=== PATIENT | male | born 1945 | race Caucasian/White ===

== ENCOUNTER 2020-08-02 16:24 | Inpatient (IN) | payer MEDICARE ==
[~2020-08-02 16:24] MED LIST: Iopamidol-370 76% 500 ML 1 ML ONE
--- NOTE | 2020-08-02 18:41 | RAD ---
Chest AP view INDICATION: Shortness of breath COMPARISON: None FINDINGS: Lungs: There is hyperinflation with interstitial prominence suspicious for underlying COPD. There ar e calcified pulmonary nodules within the right and left lung suspicious for granuloma. There is mild subsegmental volume loss involving the right lower lobe. Cardiac silhouette: There is moderate cardiomegaly. Pulmonary vasculature: Normal Pleural spaces: There are small bilateral pleural effusions. Upper abdomen: No abnormality seen. Osseous structures: No acute osseous abnormality. Additional findings: None. IMPRESSION: Moderate cardiomegaly. Small bilateral pleural effusions. Mild COPD change with findings of prior granulomatous disease.
[2020-08-02 18:54] LABS: #Basophils 0.1 thou/uL (0.0-0.2); #Eosinphils 0.1 thou/uL (0.0-0.7); #Lymphocytes 1.7 thou/uL (1.20-3.40); #Monocytes 0.5 thou/uL (0.11-0.59); #Neutrophils 4.1 thou/uL (1.40-6.50); %Basophils 0.9 % (0.0-1.0); %Eosinophils 1.2 % (0.0-10.0); %Lymphocytes 26.6 % (21.0-51.0); %Monocytes 7.5 % (0.0-10.0); %Neutrophils 63.9 % (42.0-75.0); Hemoglobin 14.4 g/dL (14.0-18.0); Mean Corpuscular HGB CONC 31.1 g/dL (32.0-36.0); Mean Corpuscular Hemoglobin 31.4 pg (27.0-31.0); Mean Platelet Volume 8.4 fL (7.4-10.4); Platelet Count 216 thou/uL (130-400); RBC Distribution Width 14.2 % (11.5-14.5); Red Blood Cell (RBC) Count 4.58 mill/uL (4.70-6.10); White Blood Cell (WBC) Count 6.4 thou/uL (4.8-10.8)
[2020-08-02 19:18] LABS: ALT (SGPT) 8 U/L (8-55); AST (SGOT) 22 U/L (5-34); Albumin 3.7 g/dL (3.4-4.8); Alkaline Phosphatase 138 U/L (40-110); Anion Gap 15 mmol/L (10-20); BUN (Urea Nitrogen) 12 mg/dL (8.4-25.7); Bilirubin, Total 0.7 mg/dL (0.2-1.2); Calc. Creatinine Clearance 0 mL/min (70-130); Calcium 8.9 mg/dL (7.8-10.44); Carbon Dioxide 27 mmol/L (23-31); Chloride 105 mmol/L (98-107); Estimated GFR-MDRD Greater than 90; Globulin 3.1 g/dL (2.4-3.5); Glucose 103 mg/dL (83-110); Lipase 13 U/L (8-78); Protein, Total 6.8 g/dL (5.8-8.1); Sodium 143 mmol/L (136-145)
[2020-08-02] MEDS ORDERED: Magnesium 2 GM/50 ML BAG (IN WATER) ONE (19:40)
[2020-08-02] MEDS ORDERED: Aspirin 325 MG TAB ONE (19:40)
[2020-08-02 19:46] LABS: CKMB 7.9 ng/mL (0-6.6)
[2020-08-02 19:56] LABS: Acetaminophen Less than 6.0 mcg/mL (10.0-30.0); Alcohol Less than 10 mg/dL (Less than 10); Salicylate Less than 8.0 mg/dL (15.0-30.0)
--- NOTE | 2020-08-02 20:22 | CT ---
CT OF THE ABDOMEN AND PELVIS WITH IV CONTRAST INDICATION: History of abdominal pain and swelling COMPARISON: CT the abdomen and pelvis [facility] June 29 FINDINGS: ABDOMEN: Lung bases: The moderate right and small left pleural effusion persists. There is bibasilar atelectas is. There is stable cardiomegaly. Liver: No focal lesion. Gallbladder: Normal appearing. Pancreas: Normal. Adrenal glands: Normal. Spleen: Normal. Kidneys and ureters: There is stable severe left hydronephrosis with mild left hydroureter. Right kid sarah appears normal. Small cysts involving the lateral margin of the superior pole right kidney is present measuring 1.3 cm. There is an additional suspected exophytic cyst off the posterior margin th e right kidney not as well seen due to anasarca measuring approximately 3.6 cm. Vasculature: There are mild vascular calcifications seen involving the visualized vasculature. 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 The left common iliac artery measures approximately 2.5 cm. 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 Lymph nodes:No lymphadenopathy. Free fluid in abdomen:No free fluid is evident. PELVIS: Small and large bowel: There is scattered colonic diverticulosis. There is an umbilicus hernia contai benita an unobstructed loop of gas-filled small bowel. Appendix:Normal Bladder: There is prominent distention of the bladder and prostate enlargement Rectal and perirectal soft tissues:Normal. Reproductive structures: The prostate remains enlarged measuring 5.3 cm. Free fluid in pelvis: There is moderate to prominent ascites that is stable. There is moderate anasar ca Lymphadenopathy pelvis: No lymphadenopathy is evident. Osseous structures: No acute osseous abnormality. No destructive osteolytic or osteoblastic lesion i s identified. There is scattered degenerative and osteoarthritic changes. Soft tissues:There is moderate to prominent anasarca IMPRESSION: 1. Stable prominent distention of the bladder with severe left-sided hydronephrosis. 2. Stable right renal cysts. 3. Stable moderate right and small left pleural effusions with moderate to prominent ascites and anas arca
[2020-08-02 21:23] LABS: Bilirubin Negative (Negative); Blood, Urine Trace (Negative); Clarity Clear (Clear); Glucose, Urine (Dipstick) Normal (Negative); Ketone, Urine Negative (Negative); Leukocyte 75 Leu/uL (Negative); Mucous/LPF 1+ LPF (<2+); Nitrite Negative (Negative); Protein, Urine (Dipstick) 50 mg/dL (Neg-Trace); Specific Gravity, Urine 1.016 (1.002-1.036); Squamous Epithelial None Seen HPF (0-3); Urobilinogen Normal mg/dL (Less than 2)
[2020-08-02 21:30] LABS: Amphetamine Not Detected (NotDetected); Benzodiazepine Screen Not Detected (NotDetected); Cocaine Metabolite Screen Not Detected (NotDetected); Medtox Reader # READER 4; Methamphetamine Not Detected (NotDetected); Opiate Screen Not Detected (NotDetected); Phencyclidine (PCP) Not Detected (NotDetected); THC/Cannabinoid Screen Not Detected (NotDetected); Tricyclic Screen Not Detected (NotDetected)
[2020-08-02 21:31] LABS: Bacteria/HPF 1+ HPF (None Seen); Barbiturates Screen Not Detected (NotDetected); Medtox Control Line Valid? VALID (VALID); Methadone Not Detected (NotDetected); Oxycodone Screen Not Detected (NotDetected)
[2020-08-02] MEDS ORDERED: Furosemide 40 MG/4 ML VIAL ONE (23:04)
[2020-08-02] MEDS ORDERED: cefTRIAXone\\ROCEPHIN 1 GM VIAL ONE (23:04)
[2020-08-02] MEDS ORDERED: Nitroglycerin 2% Ointment 1 INCH/1 GM Packet ONE (23:04)
[2020-08-02 23:10] LABS: Troponin I 0.081 ng/mL (< 0.028)
[2020-08-02] MEDS ORDERED: Enoxaparin Sodium 80 MG/0.8 ML SYRINGE ONE (23:52)
[2020-08-03] MEDS ORDERED: Ondansetron PF 4 MG/2 ML Vial IVP PRN (00:42)
[2020-08-03] MEDS ORDERED: Ondansetron ODT 4 MG TAB PO PRN (00:42)
[2020-08-03] MEDS ORDERED: HYDROcodone/Acetaminophen 5/325 mg Tablet PO PRN (00:42)
[2020-08-03] MEDS ORDERED: Calcium Carbonate 500 MG ChewTAB PO PRN (00:42)
[2020-08-03] MEDS ORDERED: Acetaminophen 650 MG Suppository PR PRN (00:42)
--- NOTE | 2020-08-03 00:48 | PDOC.HHP ---
Hospitalist HPI - History of Present Illness unable to urinate, swelling of the legs and abdomen History of Present Illness: Case of an 75y/o male with pmhx of bph who comes to hospital due to generalize edema and unable to void. patient states that for the last month he has experience progressive difficulty voiding which has been acompanied by increased swelling of his legs and abdomen. he states he is seeing a urologist that recommended a loera and some diuresis but patient was unable to get the loera placed. at ED patient was evaluated and found to be in new onset of atrial flutter and was treated with diltiazem and a loera was placed. hospitalist was called for further evaluation and management. patient denies any fever chills nause vomiting cough chest pain sob or diaphoresis Hospitalist ROS - Review of Systems All other systems reviewed; all pertinent +/- noted in HPI/Subj Hospitalist History - Past Surgical History Past Surgical History: reports: Tonsillectomy - Family History Family History: reports: no pertinent history - Social History Smoking Status: Former smoker Alcohol: reports: None Drugs: reports: none - Exam General Appearance: NAD, awake alert Eye: PERRL, anicteric sclera ENT: normocephalic atraumatic, no oropharyngeal lesions Neck: supple, symmetric, no JVD, no thyromegaly Heart: no murmur, no gallops, no rubs, irregular Respiratory: CTAB, no wheezes, no rales, no ronchi Gastrointestinal: soft, non-tender, normal bowel sounds, no guarding, no rigidity, distended Gastrointestinal - other findings: massive hernia Extremities: no cyanosis, no clubbing, 2+ LE edema Skin: normal turgor, no lesions, no rashes Neurological: cranial nerve grossly intact, normal sensation to touch, no weakness Musculoskeletal: normal tone, normal strength, no muscle wasting Psychiatric: normal affect, normal behavior, A&O x 3 Hospitalist Results - Labs Result Diagrams: 08/02/20 18:34 08/02/20 18:34 Lab results: WBC 6.4 thou/uL (4.8-10.8) 08/02/20 18:34 Hgb 14.4 g/dL (14.0-18.0) 08/02/20 18:34 Hct 46.3 % (42.0-52.0) 08/02/20 18:34 MCV 101.0 fL (78.0-98.0) H 08/02/20 18:34 Plt Count 216 thou/uL (130-400) 08/02/20 18:34 Neutrophils % 63.9 % (42.0-75.0) 08/02/20 18:34 Sodium 143 mmol/L (136-145) 08/02/20 18:34 Potassium 4.0 mmol/L (3.5-5.1) 08/02/20 18:34 Chloride 105 mmol/L (98-107) 08/02/20 18:34 Carbon Dioxide 27 mmol/L (23-31) 08/02/20 18:34 BUN 12 mg/dL (8.4-25.7) 08/02/20 18:34 Creatinine 0.79 mg/dL (0.7-1.3) 08/02/20 18:34 Glucose 103 mg/dL (83-110) 08/02/20 18:34 Calcium 8.9 mg/dL (7.8-10.44) 08/02/20 18:34 Total Bilirubin 0.7 mg/dL (0.2-1.2) 08/02/20 18:34 AST 22 U/L (5-34) 08/02/20 18:34 ALT 8 U/L (8-55) 08/02/20 18:34 Alkaline Phosphatase 138 U/L (40-110) H 08/02/20 18:34 CK-MB (CK-2) 7.9 ng/mL (0-6.6) H* 08/02/20 18:34 Troponin I 0.081 ng/mL (< 0.028) H 08/02/20 22:32 B-Natriuretic Peptide 1978.7 pg/mL (0-100) H 08/02/20 18:34 Serum Total Protein 6.8 g/dL (5.8-8.1) 08/02/20 18:34 Albumin 3.7 g/dL (3.4-4.8) 08/02/20 18:34 Lipase 13 U/L (8-78) 08/02/20 18:34 Urine Ketones Negative mg/dL (Negative) 08/02/20 20:57 Urine Blood Trace (Negative) A 08/02/20 20:57 Urine Nitrite Negative (Negative) 08/02/20 20:57 Ur Leukocyte Esterase 75 Jammie/uL (Negative) A 08/02/20 20:57 Urine RBC 4-6 HPF (0-3) A 08/02/20 20:57 Urine WBC 11-20 HPF (0-3) A 08/02/20 20:57 Ur Squamous Epith Cells None Seen HPF (0-3) 08/02/20 20:57 Urine Bacteria 1+ HPF (None Seen) A 08/02/20 20:57 Hospitalist H&P A/P - Problem (1) Acute heart failure Code(s): I50.9 - HEART FAILURE, UNSPECIFIED Status: Acute (2) Obstructive uropathy Code(s): N13.9 - OBSTRUCTIVE AND REFLUX UROPATHY, UNSPECIFIED Status: Acute (3) UTI (urinary tract infection) Status: Acute (4) Atrial flutter with rapid ventricular response Code(s): I48.92 - UNSPECIFIED ATRIAL FLUTTER Status: Acute - Plan Plan: 75y/o male with apparent no pmhx of who present with new onset of atrial flutter, heart faiure uti and obstructive uropathy atrial flutter - ekg consistent with atrial flutter with rvr - treated with diltiazem iv 20mg x2 - start beta maikel for rate control - AC with lovenox - 2d echo -telemtry monitoring heart failure - cxr with cardiomegaly - bnp almost 2k - will treat with lasix 40mg iv bid - will start acei + beta maikel - 2d echo - pecan picker evaluation - elevated troponin will trend obstructive uropathy - likely secondary to bph - loera cath placed - continue w flomax - abd ct with L hydronephrosis, which appears on imagin 1 month ago - urology consult uti - u/a consistent with uti - starting rocephin - f/u u/c
[2020-08-03 02:58] LABS: Troponin I 0.076 ng/mL (< 0.028)
[2020-08-03] MEDS: Acetaminophen 325 MG TAB PO PRN (04:59)
[2020-08-03] MEDS ORDERED: Acetaminophen 325 MG TAB ONE (05:04)
[2020-08-03] MEDS ORDERED: Furosemide 20 MG/2 ML VIAL SLOW IVP SCH (06:00)
[2020-08-03] MEDS ORDERED: Furosemide 40 MG/4 ML VIAL ONE ×2 (06:45→14:25)
[2020-08-03] MEDS: Furosemide 40 MG/4 ML VIAL SLOW IVP SCH ×2 (06:48→14:38)
[2020-08-03 07:21] LABS: ALT (SGPT) 7 U/L (8-55); AST (SGOT) 20 U/L (5-34); Albumin 3.2 g/dL (3.4-4.8); Alkaline Phosphatase 117 U/L (40-110); Anion Gap 13 mmol/L (10-20); BUN (Urea Nitrogen) 10 mg/dL (8.4-25.7); Bilirubin, Total 0.8 mg/dL (0.2-1.2); Calc. Creatinine Clearance 0 mL/min (70-130); Calcium 8.9 mg/dL (7.8-10.44); Carbon Dioxide 32 mmol/L (23-31); Chloride 104 mmol/L (98-107); Estimated GFR-MDRD Greater than 90; Globulin 3.1 g/dL (2.4-3.5); Glucose 99 mg/dL (83-110); Magnesium 2.2 mg/dL (1.6-2.6); Potassium 3.7 mmol/L (3.5-5.1); Protein, Total 6.3 g/dL (5.8-8.1); Sodium 145 mmol/L (136-145)
[2020-08-03 08:49] LABS: SARS-CoV-2 MS2 Positive; SARS-CoV-2 N Gene Negative; SARS-CoV-2 S Gene Negative; SARS-CoV-2 by NAA Not Detected (NotDetected); SARS-CoV-2 orf1ab Negative
[2020-08-03] MEDS ORDERED: Carvedilol 3.125 MG TAB PO SCH (09:00)
[2020-08-03] MEDS ORDERED: Enoxaparin Sodium 80 MG/0.8 ML SYRINGE ONE (10:19)
[2020-08-03] MEDS: Lisinopril 2.5 MG TAB PO SCH (10:30)
[2020-08-03] MEDS: Enoxaparin Sodium 80 MG/0.8 ML SYRINGE SC SCH ×2 (10:30→20:21)
[2020-08-03] MEDS: Tamsulosin HCl 0.4 MG CAP PO SCH (10:32)
[2020-08-03 11:02] LABS: Anion Gap 14 mmol/L (10-20); BUN (Urea Nitrogen) 10 mg/dL (8.4-25.7); Calc. Creatinine Clearance 0 mL/min (70-130); Calcium 8.8 mg/dL (7.8-10.44); Carbon Dioxide 31 mmol/L (23-31); Cardiac Risk 4.1 (Less than 4.5); Chloride 101 mmol/L (98-107); Cholesterol 124 mg/dl (< 200 Desired); Estimated GFR-MDRD Greater than 90; Glucose 101 mg/dL (83-110); HDL Cholesterol 30 mg/dL (>60 Neg Risk); LDL Cholesterol, Calculated 76 mg/dL; Potassium 3.4 mmol/L (3.5-5.1); Sodium 143 mmol/L (136-145); Triglycerides 88 mg/dL (Less than 150)
--- NOTE | 2020-08-03 12:17 | CON ---
DATE OF CONSULTATION: HISTORY OF PRESENT ILLNESS: Jonathon León is a 75-year-old white male without any previously known cardiac problems except an episode of pericarditis when he was in college where he had to be hospitalized for few days. He also states that at times he has been told that he has an irregular heartbeat. Over the last 1 to 2 weeks, he has noted increasing leg and abdominal edema and he also at times will feel his heart beating somewhat rapidly. He saw Dr. Lau, his primary doctor, who urged him to have a Cedeno placed and he went to see a urologist, however, due to pain, this could not be placed. He ultimately came to the emergency room. A Cedeno was placed. He had significant diuresis after placement of that. He denies any chest discomfort. PAST MEDICAL HISTORY: Denies any history of hypertension, diabetes, or hypercholesterolemia. It sounds as if he has benign prostatic hypertrophy. MEDICATIONS: At home, none. ALLERGIES: NONE. SOCIAL HISTORY: Smokes 5 to 6 cigarettes per day, but apparently stopped 2 to 3 months ago. He does drink alcohol. FAMILY HISTORY: Negative for coronary artery disease. PHYSICAL EXAMINATION: VITAL SIGNS: Blood pressure 132/100, pulse of 119. HEENT: PERRL. NECK: Supple. CHEST: Clear. CARDIAC: S1 and S2 normal without any S3, S4, or murmurs. The jugular veins are distended at 30 degrees in bed. ABDOMEN: Normal bowel sounds. There is a large umbilical hernia. EXTREMITIES: Reveal 1 to 2+ pretibial edema and thigh edema. GENITOURINARY: Cedeno is in place with blood-tinged urine. NEUROLOGIC: Grossly intact. LABORATORY DATA: EKG reveals probable sinus rhythm with rate of 119 per minute. There is right bundle-branch block, left anterior fascicular block, nonspecific ST and T-wave changes. Abdominal and pelvis CT revealed bladder distention with severe left-sided hydronephrosis. Bilateral small pleural effusions. Prominent ascites and anasarca. Chest x-ray revealed cardiomegaly with small bilateral effusions, somewhat increased pulmonary vasculature. Hemoglobin 14.4, hematocrit 46.3, white count 6400, platelets 216,000. He does have elevated RBC indices except the MCHC is low. Sodium 145, potassium 3.7, chloride 104, carbon dioxide 32, BUN 10, and creatinine 0.82. All of the creatinines have been normal. Troponin I is 0.081, CK-MB 7.9. Albumin is low at 3.2, total protein is normal at 6.3, AST is normal, ALT is 7, which is low. COVID is negative. Urine drug screen is unremarkable. Urinalysis reveals 10 to 20 wbc's, 4 to 6 rbc's, 1+ bacteria. BNP 1978.7 and TSH is normal. IMPRESSION: 1. Probable sinus tachycardia on his EKG. Usually with atrial flutter, there is either 2:1 or 4:1 block, which usually leads to a heart rate of about 150 or 75. Also in lead V1, I do not see any flutter waves. This can be further defined on echocardiogram. 2. Probable systolic heart failure with cardiomegaly on chest x-ray, significantly elevated jugular venous distention and BNP of 1978.7 3. Possible hypertension with blood pressure somewhat elevated at this time. 4. Benign prostatic hypertrophy with urinary obstruction and left hydronephrosis although his creatinine is normal. 5. Former smoker, stopped 2 months ago. 6. EtOH use. PLAN: The patient has been started on carvedilol and as he is diuresed, hopefully, his heart rate will fall. Echocardiogram can be performed to assess left ventricular function. We will continue to follow the patient with you. Job ID: [id number] MTDD
--- NOTE | 2020-08-03 12:30 | PDOC.HOSPP ---
- Subjective Encounter Date: 08/03/20 Encounter Time: 10:00 Subjective: Mr. León was in bed at the time of the visit and appeared to be in no acute distress. He denied any current palpitations, chest pain, and cardiac history. His Cedeno drained 500 mL of blood-tinged urine and relieved his ab dominal dissension and pain. Abdominal CT showed severe left hydronephrosis. Reported 1-2 weeks of leg edema. - Objective Vital Signs & Weight: Vital Signs (12 hours) Pulse BP 08/03/20 10:30 120 H 134/106 H Result Diagrams: 08/02/20 18:34 08/03/20 10:27 Hospitalist ROS - Review of Systems Respiratory: denies: shortness of breath, SOB with excertion Cardiovascular: denies: chest pain, palpitations - Medication Medications: Active Medications Generic Name Dose Route Start Last Admin Trade Name Freq PRN Reason Stop Dose Admin Acetaminophen 650 mg 08/03/20 00:42 08/03/20 04:59 Acetaminophen 325 Mg Tab PO 650 mg Q4H PRN Administration Headache/Fever/Mild Pain (1-3) Enoxaparin Sodium 80 mg 08/03/20 09:00 08/03/20 10:30 Enoxaparin Sodium 80 Mg/0.8 Ml Syringe SC 80 mg 0900,2100 JEFFERY Administration Furosemide 40 mg 08/03/20 06:00 08/03/20 06:48 Furosemide 40 Mg/4 Ml Vial SLOW IVP 40 mg 0600,1400 JEFFERY Administration Lisinopril 2.5 mg 08/03/20 09:00 08/03/20 10:30 Lisinopril 2.5 Mg Tab PO 2.5 mg DAILY JEFFERY Administration Tamsulosin HCl 0.4 mg 08/03/20 09:00 08/03/20 10:32 Tamsulosin Hcl 0.4 Mg Cap PO 0.4 mg DAILY JEFFERY Administration - Exam General Appearance: NAD Eye: anicteric sclera ENT: normocephalic atraumatic Neck: JVD Heart: RRR Respiratory: CTAB, no wheezes, no rales, no ronchi Gastrointestinal: soft, non-distended Extremities: 1+ LE edema (bilateral legs) Neurological: cranial nerve grossly intact Psychiatric: normal affect, A&O x 3 Hosp A/P (1) Acute heart failure Code(s): I50.9 - HEART FAILURE, UNSPECIFIED Status: Acute (2) Atrial flutter with rapid ventricular response Code(s): I48.92 - UNSPECIFIED ATRIAL FLUTTER Status: Acute (3) Obstructive uropathy Code(s): N13.9 - OBSTRUCTIVE AND REFLUX UROPATHY, UNSPECIFIED Status: Acute (4) UTI (urinary tract infection) Status: Acute - Plan 08/03/2020 Atrial flutter with RVR - Continue Carvedilol for rate control--he is on a low-dose we will also provide low-dose Cardizem and adjust as his heart rate allows to keep the heart rate below 90 -Lopressor PRN for HR >90 - ordered echocardiogram - anticoagulated with Lovenox bid - cardiology following--- after echo report reviewed we will consider putting him on Eliquis versus Xarelto, if that is okay with the pmo analyst Abnormal troponin probably due to A. 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
[2020-08-03] MEDS ORDERED: Metoprolol Tartrate 5 MG/5 ML VIAL ONE (14:25)
[2020-08-03] MEDS ORDERED: Metoprolol Tartrate 5 MG/5 ML VIAL IVP PRN (14:27)
[2020-08-03 18:13] VITALS: BMI 24.1
[2020-08-03] MEDS: Carvedilol 6.25 MG TAB PO SCH (18:22)
--- NOTE | 2020-08-03 20:05 | CON ---
DATE OF CONSULTATION: 08/03/2020 REASON FOR CONSULTATION: Urinary retention. CHIEF COMPLAINT: Difficulty urinating. HISTORY OF PRESENT ILLNESS: This is a 75-year-old male previously seen by me on July 06 at which point, he walked into our clinic wanting to be seen for a worsening issue of difficulty urinating. At that point, he was clearly in retention as it was explained to him. However, he would not allow Cedeno catheter placement and would not consider performing CIC. He was dismissed from our practice at that point. He presented to the emergency room yesterday reporting trouble urinating with worsening edema of his lower extremities. In the emergency room, he was found to be in atrial flutter. Imaging shows left-sided hydronephrosis with distended bladder. Cedeno catheter has now been placed. The patient tells me the catheter is not particularly uncomfortable. He denies suprapubic pain, flank pain, nausea, or fevers. He does not feel that his peripheral edema has improved much overnight. PAST MEDICAL HISTORY: Enlarged prostate, urinary retention. PAST SURGICAL HISTORY: Tonsillectomy. FAMILY HISTORY: Reviewed, noncontributory. SOCIAL HISTORY: Former smoker. No current substance abuse. REVIEW OF SYSTEMS: 12-point review of systems reviewed, negative except as in HPI. PHYSICAL EXAMINATION: GENERAL: No acute distress. Conversant. HEENT: Head; normocephalic and atraumatic. Extraocular movements intact. Sclerae anicteric. NECK: Supple. Trachea midline. RESPIRATORY: Unlabored breathing. Symmetric chest expansion. HEART: Normal rate. No murmurs. ABDOMEN: Soft, nontender, nondistended. : No flank tenderness. No suprapubic tenderness. Cedeno catheter in good position draining mildly hematuric urine with dry blood around the Cedeno at the meatus. StatLock has been deployed incorrectly and is causing tension on the catheter. EXTREMITIES: Without cyanosis or clubbing. He does continue to have 1 to 2+ bilateral lower extremity edema. NEUROLOGIC: Alert and oriented x3. PSYCHIATRIC: Normal mood and affect. SKIN: Warm and dry. LABORATORY DATA: Reviewed. White count 6.4, hemoglobin 14.4. Creatinine 0.82. BNP yesterday just under 2000. Troponin 0.081. Repeat early this morning, 0.076. Urinalysis, small leukocyte esterase, negative nitrite. IMAGING: Enlarged prostate, distended bladder, left hydronephrosis. 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 Cedeno catheter will need to remain for at least 3 weeks. As I explained him again, he has been dismissed from our practice and so he will need to follow up with an outside urologist. I will be happy to take care of him in the hospital. Repeat imaging tomorrow with renal ultrasound to evaluate for resolution of the hydronephrosis. This may be due to longstanding ureteropelvic junction, which clearly has not impacted his overall renal function. He should continue on Flomax and finasteride. Job ID: [id number]
[2020-08-03] MEDS: cefTRIAXone\\ROCEPHIN 1 GM in Sodium Chloride 0.9% 100 ML IVPB SCH (22:04)
[2020-08-04 05:11] LABS: Anion Gap 13 mmol/L (10-20); BUN (Urea Nitrogen) 12 mg/dL (8.4-25.7); Calc. Creatinine Clearance 80 mL/min (70-130); Calcium 8.5 mg/dL (7.8-10.44); Carbon Dioxide 28 mmol/L (23-31); Cardiac Risk 3.9 (Less than 4.5); Chloride 100 mmol/L (98-107); Cholesterol 109 mg/dl (< 200 Desired); Estimated GFR-MDRD Greater than 90; Glucose 95 mg/dL (83-110); HDL Cholesterol 28 mg/dL (>60 Neg Risk); LDL Cholesterol, Calculated 69 mg/dL; Sodium 138 mmol/L (136-145); Triglycerides 61 mg/dL (Less than 150)
[2020-08-04] MEDS: Furosemide 40 MG/4 ML VIAL SLOW IVP SCH ×2 (05:19→14:15)
--- NOTE | 2020-08-04 09:01 | PDOC.HOSPP ---
- Subjective Encounter Date: 08/04/20 Encounter Time: 09:30 Subjective: Mr. León had just finished his walk and was sitting on the side of the bed at the time of the visit. Feels like he's ready to go home and wouldn't want to stay in the hospital anymore than 2 days but will defer to doctor's opinions. Abdominal pain and distension has resolved. Cedeno not uncomfortable. Potassium level low at 3. No chest pain, palpitations, shortness of breath, or dizziness. Reduced LE edema. - Objective Vital Signs & Weight: Vital Signs (12 hours) Temp Pulse Resp BP Pulse Ox 08/04/20 07:34 97.7 F 118 H 16 118/85 94 L 08/04/20 03:09 97.4 F L 116 H 20 134/88 96 08/04/20 00:00 97.5 F L 116 H 20 128/92 H 96 Weight Weight 154 lb 4.8 oz I&O: 08/03/20 08/04/20 08/05/20 06:59 06:59 06:59 Intake Total 420 Output Total 1900 Balance -1480 Result Diagrams: 08/02/20 18:34 08/04/20 03:54 Hospitalist ROS - Review of Systems Respiratory: denies: shortness of breath Cardiovascular: reports: edema (Bilat LE but reduced since yesterday). denies: chest pain, palpitations, orthopnea, paroxysmal noc. dyspnea, light headedness Gastrointestinal: denies: nausea, vomiting, abdominal pain, diarrhea, constipation - Medication Medications: Active Medications Generic Name Dose Route Start Last Admin Trade Name Coltonq PRN Reason Stop Dose Admin Acetaminophen 650 mg 08/03/20 00:42 08/03/20 04:59 Acetaminophen 325 Mg Tab PO 650 mg Q4H PRN Administration Headache/Fever/Mild Pain (1-3) Carvedilol 6.25 mg 08/03/20 17:00 08/03/20 18:22 Carvedilol 6.25 Mg Tab PO 6.25 mg BID-WM JEFFERY Administration Diltiazem HCl 30 mg 08/03/20 15:00 08/03/20 20:21 Diltiazem Hcl 30 Mg Tablet PO 30 mg TID JEFFERY Administration Enoxaparin Sodium 80 mg 08/03/20 09:00 08/03/20 20:21 Enoxaparin Sodium 80 Mg/0.8 Ml Syringe SC 80 mg 0900,2100 JEFFERY Administration Furosemide 40 mg 08/03/20 06:00 08/04/20 05:19 Furosemide 40 Mg/4 Ml Vial SLOW IVP 40 mg 0600,1400 JEFFERY Administration Ceftriaxone Sodium 1 gm/ 100 mls @ 200 mls/hr 08/03/20 23:00 08/03/20 22:04 Sodium Chloride IVPB 100 mls Q24HR JEFFERY Administration Lisinopril 2.5 mg 08/03/20 09:00 08/03/20 10:30 Lisinopril 2.5 Mg Tab PO 2.5 mg DAILY JEFFERY Administration Tamsulosin HCl 0.4 mg 08/03/20 09:00 08/03/20 10:32 Tamsulosin Hcl 0.4 Mg Cap PO 0.4 mg DAILY JEFFERY Administration - Exam General Appearance: NAD Eye: anicteric sclera ENT: normocephalic atraumatic ENT - other findings: poor dentition Neck: supple Heart: RRR, no murmur, no gallops, diminshed peripheral pulses (dorsalis pedis bilateral) Respiratory: CTAB, no wheezes, no rales, no ronchi Gastrointestinal: soft, non-tender, non-distended, normal bowel sounds Gastrointestinal - other findings: large umbilical hernia Extremities: 1+ LE edema (reduced since yesterday dermatologic changes associated with chronic venostasis) Psychiatric: normal affect, A&O x 3 Hosp A/P (1) Acute heart failure Code(s): I50.9 - HEART FAILURE, UNSPECIFIED Status: Acute (2) Atrial flutter with rapid ventricular response Code(s): I48.92 - UNSPECIFIED ATRIAL FLUTTER Status: Acute (3) Obstructive uropathy Code(s): N13.9 - OBSTRUCTIVE AND REFLUX UROPATHY, UNSPECIFIED Status: Acute (4) UTI (urinary tract infection) Status: Acute - Plan 08/03/2020 Atrial flutter with RVR - Continue Carvedilol for rate control--he is on a low-dose we will also provide low-dose Cardizem and adjust as his heart rate allows to keep the heart rate below 90 -Lopressor PRN for HR >90 - ordered echocardiogram - anticoagulated with Lovenox bid - cardiology following--- after echo report reviewed we will consider putting him on Eliquis versus Xarelto, if that is okay with the general clerk Abnormal troponin probably due to A. 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 -seems he has no prior history of ischemia Lower extremity edema -However his BNP elevated at 1977 - Diuresis with Fursomide; daily weight - Started load lisinopril Obstructive uropathy due to BPH - Continue Flomax - Keep Cedeno - Urology consult placed UTI - Being treated with Rocephin -Follow with the urine DVT prophylaxis - Enoxaparin twice daily - SCDs COVID negative Care discussed with the student and agree with the today's plan 08/04/2020 Atrial flutter with RVR - Echocardiogram today - Rate control with Carvedilol and Diltiazem -- stayed in 110s-120s--------------> will increase the Coreg dose as his heart rate still not adequately controlled and since his blood pressure is on the low side I will discontinue the diltiazem which is started at low-dose - Lopressor PRN for HR >90 - cardiology following Lower extermity edema - diuresis with Fursomide - reduced edema since yesterday - weight reduced ~3 kg since yesterday Obstructive uropathy due to BPH - Keep Cedeno for at least 3 weeks outpatient follow-up with new urology group as it appears that he was not well calmed in the previous urology group with Dr. Henley - Renal ultrasound- left hydronephrosis - blood tinged urine - Continue Flomax - added finasteride - urology following as inpt. Hypokalemmia -Being on diuretics - potassium supplementation Care discussed with the student and agree with today's plan.
[2020-08-04] MEDS: Lisinopril 2.5 MG TAB PO SCH (09:11)
[2020-08-04] MEDS: Tamsulosin HCl 0.4 MG CAP PO SCH (09:11)
[2020-08-04] MEDS: Carvedilol 6.25 MG TAB PO SCH ×2 (09:11→16:47)
[2020-08-04] MEDS: Enoxaparin Sodium 80 MG/0.8 ML SYRINGE SC SCH ×2 (09:11→21:31)
[2020-08-04] MEDS ORDERED: Carvedilol 6.25 MG TAB PO SCH (09:45)
[2020-08-04] MEDS ORDERED: Potassium Chloride 20 MEQ TAB PO SCH (10:00)
--- NOTE | 2020-08-04 10:15 | ULT ---
BILATERAL RENAL ULTRASOUND: Date: 08/04/2020 HISTORY: Hydronephrosis. FINDINGS: Comparison made with exam of 06/09/2020. The right kidney measures 12.7 cm in length. The left kidney measures 10.8 cm in length. Cyst in the right kidney measures 1.6 x 1.3 x 1.3 cm in the superolateral aspect and 3.4 x 2.7 x 2.0 cm in the mi d lateral aspect of the right kidney. No right-sided hydronephrosis is seen. There is persistent left hydronephrosis which appears slightly less compared to the previous study of 06/09/2020. There is as cites and right pleural effusion. Cedeno catheter is present in the urinary bladder. IMPRESSION: 1. Right renal cyst. 2. Severe left hydronephrosis, mildly better since 06/09/2020. POS: OFF
[2020-08-04] MEDS: cefTRIAXone\\ROCEPHIN 1 GM in Sodium Chloride 0.9% 100 ML IVPB SCH (22:47)
[2020-08-05 04:41] LABS: Anion Gap 13 mmol/L (10-20); BUN (Urea Nitrogen) 13 mg/dL (8.4-25.7); Calc. Creatinine Clearance 84 mL/min (70-130); Calcium 8.5 mg/dL (7.8-10.44); Carbon Dioxide 31 mmol/L (23-31); Chloride 99 mmol/L (98-107); Estimated GFR-MDRD Greater than 90; Glucose 91 mg/dL (83-110); Potassium 3.5 mmol/L (3.5-5.1); Sodium 139 mmol/L (136-145)
[2020-08-05] MEDS: Furosemide 40 MG/4 ML VIAL SLOW IVP SCH ×2 (06:43→14:01)
--- NOTE | 2020-08-05 07:10 | EKG ---
Test Reason : Blood Pressure : / mmHG Vent. Rate : 119 BPM Atrial Rate : 119 BPM P-R Int : 128 ms QRS Dur : 150 ms QT Int : 388 ms P-R-T Axes : 000 -67 137 degrees QTc Int : 545 ms Sinus tachycardia probable well defined P waves not seen Right bundle branch block Left anterior fascicular block Bifascicular block Left ventricular hypertrophy with repolarization abnormality Abnormal ECG Confirmed by DR. Jackson KC ([id number]) on 08/05/2020 7:09:32 AM Referred By: ADRIAN Confirmed By:DR. Jackson KC
[2020-08-05] MEDS: Finasteride 5 MG TAB PO SCH (08:47)
[2020-08-05] MEDS: Carvedilol 6.25 MG TAB PO SCH ×2 (08:47→16:46)
[2020-08-05] MEDS: Tamsulosin HCl 0.4 MG CAP PO SCH (08:48)
[2020-08-05] MEDS: Lisinopril 2.5 MG TAB PO SCH (08:48)
[2020-08-05] MEDS ORDERED: Potassium Chloride 10 MEQ TAB PO SCH (09:00)
--- NOTE | 2020-08-05 09:22 | PDOC.HOSPP ---
- Subjective Encounter Date: 08/05/20 Encounter Time: 09:00 Subjective: Mr. León was in bed at the time of the visit this morning and was not happy that he was still in the hospital. He would like to leave as soon as possible. No shortness of breath, chest pain, palpitations, trouble walking, or abdominal pain/ distension. Cedeno still shows blood-tinged urine. No discomfort with the Cedeno. Echo showed left heart dysfunction with EF 15-20%. Reduced ankle edema. - Objective Vital Signs & Weight: Vital Signs (12 hours) Temp Pulse Resp BP BP Pulse Ox 08/05/20 08:48 115 H 116/84 08/05/20 08:47 116/84 08/05/20 07:57 97.4 F L 115 H 16 116/84 98 08/05/20 04:00 97.9 F 114 H 12 114/84 98 08/05/20 00:30 115 H 14 109/80 98 Weight Weight 154 lb 11.2 oz I&O: 08/04/20 08/05/20 08/06/20 06:59 06:59 06:59 Intake Total 420 1200 Output Total 1900 4075 Balance -1480 -1875 Result Diagrams: 08/02/20 18:34 08/05/20 04:05 Hospitalist ROS - Review of Systems Respiratory: denies: cough, shortness of breath Cardiovascular: denies: chest pain, palpitations Gastrointestinal: denies: nausea, vomiting, abdominal pain, diarrhea - Medication Medications: Active Medications Generic Name Dose Route Start Last Admin Trade Name Freq PRN Reason Stop Dose Admin Acetaminophen 650 mg 08/03/20 00:42 08/03/20 04:59 Acetaminophen 325 Mg Tab PO 650 mg Q4H PRN Administration Headache/Fever/Mild Pain (1-3) Carvedilol 12.5 mg 08/04/20 17:00 08/05/20 08:47 Carvedilol 6.25 Mg Tab PO 12.5 mg BID-WM JEFFERY Administration Finasteride 5 mg 08/05/20 09:00 08/05/20 08:47 Finasteride 5 Mg Tab PO 5 mg DAILY JEFFERY Administration Furosemide 40 mg 08/03/20 06:00 08/05/20 06:43 Furosemide 40 Mg/4 Ml Vial SLOW IVP 40 mg 0600,1400 JEFFERY Administration Ceftriaxone Sodium 1 gm/ 100 mls @ 200 mls/hr 08/03/20 23:00 08/04/20 22:47 Sodium Chloride IVPB 100 mls Q24HR JEFFERY Administration Lisinopril 2.5 mg 08/03/20 09:00 08/05/20 08:48 Lisinopril 2.5 Mg Tab PO 2.5 mg DAILY JEFFERY Administration Potassium Chloride 20 meq 08/05/20 09:00 08/05/20 08:47 Potassium Chloride 10 Meq Tab PO 20 meq DAILY JEFFERY Administration Tamsulosin HCl 0.4 mg 08/03/20 09:00 08/05/20 08:48 Tamsulosin Hcl 0.4 Mg Cap PO 0.4 mg DAILY JEFFERY Administration - Exam General Appearance: NAD Eye: anicteric sclera ENT: normocephalic atraumatic Neck: supple Heart: RRR, no murmur, diminshed peripheral pulses Heart - other findings: dorsalis pedis bilateral Respiratory: negative: CTAB, no wheezes Gastrointestinal: negative: soft, non-tender, non-distended, normal bowel sounds Extremities: 1+ LE edema Extremities - other findings: reduced bilat ankle edema since yesterday Hosp A/P (1) Acute heart failure Code(s): I50.9 - HEART FAILURE, UNSPECIFIED Status: Acute (2) Atrial flutter with rapid ventricular response Code(s): I48.92 - UNSPECIFIED ATRIAL FLUTTER Status: Acute (3) Obstructive uropathy Code(s): N13.9 - OBSTRUCTIVE AND REFLUX UROPATHY, UNSPECIFIED Status: Acute (4) UTI (urinary tract infection) Status: Acute - Plan 08/03/2020 Atrial flutter with RVR - Continue Carvedilol for rate control--he is on a low-dose we will also provide low-dose Cardizem and adjust as his heart rate allows to keep the heart rate below 90 -Lopressor PRN for HR >90 - ordered echocardiogram - anticoagulated with Lovenox bid - cardiology following--- after echo report reviewed we will consider putting him on Eliquis versus Xarelto, if that is okay with the desktop analyst Abnormal troponin probably due to A. 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 -seems he has no prior history of ischemia Lower extremity edema -However his BNP elevated at 1977 - Diuresis with Fursomide; daily weight - Started load lisinopril Obstructive uropathy due to BPH - Continue Flomax - Keep Cedeno - Urology consult placed UTI - Being treated with Rocephin -Follow with the urine DVT prophylaxis - Enoxaparin twice daily - SCDs COVID negative Care discussed with the student and agree with the today's plan 08/04/2020 Atrial flutter with RVR - Echocardiogram today - Rate control with Carvedilol and Diltiazem -- stayed in 110s-120s--------------> will increase the Coreg dose as his heart rate still n ot adequately controlled and since his blood pressure is on the low side I will discontinue the diltiazem which is started at low-dose - Lopressor PRN for HR >90 - cardiology following Lower extermity edema - diuresis with Fursomide - reduced edema since yesterday - weight reduced ~3 kg since yesterday Obstructive uropathy due to BPH - Keep Cedeno for at least 3 weeks outpatient follow-up with new urology group as it appears that he was not welcomed in the previous urology group with Dr. Henley - Renal ultrasound- left hydronephrosis - blood tinged urine - Continue Fl omax - added finasteride - urology following as inpt. Hypokalemmia -Being on diuretics - potassium supplementation Care discussed with the student and agree with today's plan. 08/05/2020 Left heart dysfunction - EF 15-20% - Continue Carvedilol -- heart rate still in 110s - Lovenox started by cardiology -\close monitoring given the hematuria episode. - Metoprolol PRN HR > 90 - cardiology following Obstructive uropathy - Cedeno continues to have blood tinged urine -- discussed possible bladder irrigation with the urologist - will proceed per their recommendations - Continue Flomax and finasteride - no urine culture growth at 48 hours - urology following as inpt. Hematuria -Probably due to Cedeno related trauma however he is on full dose Lovenox -We did the bladder irrigation and seems to be clearing up. Hypokalemia - corrected with potassium supplementation
--- NOTE | 2020-08-05 15:51 | PDOC.BPN ---
- Brief Progress Note Trying to reach Dr. Henley the urologist whether we can replace this Cedeno with the two-way Cedeno for bladder irrigation as patient is not able to tolerate with aggressive irrigation with his current Cedeno. His hematuria could be exacerbated with being on Lovenox therapeutic dose.
[2020-08-05] MEDS ORDERED: Enoxaparin Sodium 80 MG/0.8 ML SYRINGE SC SCH (21:00)
[2020-08-05] MEDS: cefTRIAXone\\ROCEPHIN 1 GM in Sodium Chloride 0.9% 100 ML IVPB SCH (21:57)
--- NOTE | 2020-08-05 22:54 | CON ---
DATE OF CONSULTATION: 08/05/2020 HISTORY OF PRESENT ILLNESS: I am seeing Mr. León at our [facility] telemetry floor for Electrophysiology consultation. His problems are: 1. Possibly typical, isthmus dependent atrial flutter, possibly typical isthmus- dependent with rapid rate. 2. Newly found likely nonischemic cardiomyopathy to a reduced LVEF at 15% to 20%. 3. BPH and subsequent urinary obstruction, status post indwelling Cedeno with improving hydronephrosis and hematuria. 4. History of EtOH abuse. 5. History of hypertension. ALLERGIES: NONE NOTED. MEDICATIONS: At home included: 1. Spironolactone. 2. Tamsulosin. 3. Furosemide. SUBJECTIVE: Mr. León was admitted with progressive fluid overload and was found to have urinary obstruction. He required a Cedeno placement, which is still indwelling. He has drained significant amount of urine and since then has some degree of hematuria with pink looking urine. He was evaluated by Dr. Fitch and atrial flutter was noted. His echocardiogram also demonstrates severe reduced LVEF at 15% to 20% with moderate MR, [id number]. I was consulted for further arrhythmia management. Currently, he is feeling okay. He denies PND or orthopnea. No chest pain. No fever, chills, or cough. He is not aware of rapid heart rate. He does not pass out. No stroke-like symptoms noted. Apart from hematuria, no other bleeding issues are seen. The rest of 12-point review of systems otherwise unremarkable. PAST MEDICAL HISTORY: As above. The history of BPH, which led to obstructive uropathy as above. He has no prior history of heart disease or heart attacks. He has history of smoking and some EtOH use. SOCIAL HISTORY: He quit smoking 2 months ago. Has some EtOH use. Denied drug abuse. He is not . FAMILY HISTORY: Not contributory. OBJECTIVE DATA: VITAL SIGNS: Blood pressure 103/72, heart rate 111, respirations 16, the patient is afebrile at 97.4 degrees Fahrenheit. GENERAL: Reveals an alert and oriented man, in no apparent distress. NECK: Supple. Jugular veins not distended. CHEST: Coarse. No crackles. HEART: Sounds are regular to rate and rhythm, but tachycardic. No murmur or gallop is heard. PMI is laterally displaced. ABDOMEN: Benign. Bowel sounds positive. EXTREMITIES: Lower extremities without edema, clubbing, or cyanosis. Pulses are adequate. NEUROLOGIC: The patient is nonfocal. MUSCULOSKELETAL: No joint swelling or deformity. SKIN: Without rash. DATABASE: EKG is reviewed, revealing atrial flutter with ventricular rate 150 beats per minute likely due to one AV conduction is seen. The flutter waves are difficult to visualize. Possibly typical isthmus-dependent atrial flutter is present. Right bundle-branch block and left anterior fascicular block also are noted. Telemetry reveals very irregular rate and rhythm. The QRS duration is 144 msec. ASSESSMENT AND PLAN: Mr. León is a 75-year-old man with newly found possibly typical isthmus-dependent atrial flutter with rapid rates, also newly found cardiomyopathy, bifascicular block on EKG. He is admitted with obstructive uropathy due to benign prostatic hypertrophy and related hydronephrosis. He is status post Cedeno placement, some blood-tinged urine, but no severe anemia. I spent some time explaining the mechanism of both atrial fibrillation and flutter. We have seen only flutter in his case, but I explained to him some people will have both arrhythmias and I did explain the potential treatment options of his atrial flutter. Anticoagulation could be a consideration on the other hand with a hematuria, this may not be feasible at this time. Hence, his reduced LVEF, heart rate reduction would be paramount and ELENO guided cardioversion could be considered, possibly ELENO guided atrial flutter ablation also a very reasonable option for him. I explained the rationale mechanism of these procedures and treatment of his arrhythmias. At this point, he is not interested in any of these procedures. Reduced LVEF, newly found of unclear etiology. The ischemic workup was referred to Dr. Fitch, although most likely he has nonischemic cardiomyopathy. Possibly rate-related cardiomyopathy also could contribute to his LVEF decrease. We discussed the benefit of heart rate reduction in achieving some recovery of the left ventricular systolic function. He also will need guideline directed medical therapy for heart failure as per Dr. Fitch. After all discussion at this point, he states that he is not interested in any of these procedures. I offered him an outpatient followup and will be happy to see him back in next 2 to 4 weeks or earlier if symptoms dictate. Oral anticoagulation should be initiated once okay with Nephrology and also if LVEF does not recover in 3 months, he could be considered for ICD implant, but for now was not interested in that modality either. Thank you again for allowing me to participate in care of this patient. Job ID: [id number] CORI
[2020-08-06] MEDS: Acetaminophen 325 MG TAB PO PRN (02:58)
[2020-08-06 05:28] LABS: Anion Gap 12 mmol/L (10-20); BUN (Urea Nitrogen) 15 mg/dL (8.4-25.7); Calc. Creatinine Clearance 71 mL/min (70-130); Carbon Dioxide 33 mmol/L (23-31); Chloride 96 mmol/L (98-107); Potassium 3.3 mmol/L (3.5-5.1); Sodium 138 mmol/L (136-145)
[2020-08-06 05:29] LABS: Calcium 8.6 mg/dL (7.8-10.44); Estimated GFR-MDRD Greater than 90; Glucose 143 mg/dL (83-110)
[2020-08-06] MEDS: Furosemide 40 MG/4 ML VIAL SLOW IVP SCH (05:55)
--- NOTE | 2020-08-06 07:17 | EKG ---
Test Reason : Blood Pressure : / mmHG Vent. Rate : 115 BPM Atrial Rate : 230 BPM P-R Int : 000 ms QRS Dur : 160 ms QT Int : 400 ms P-R-T Axes : 248 -61 155 degrees QTc Int : 553 ms Atrial flutter with 2:1 A-V conduction possible Right bundle branch block Left anterior fascicular block Bifascicular block Left ventricular hypertrophy with repolarization abnormality Abnormal ECG When compared with ECG of 04-AUG-2020 10:53, Atrial flutter has replaced Sinus rhythm Confirmed by DR. Jackson KC ([id number]) on 08/06/2020 7:17:23 AM Referred By: ADRIAN Confirmed By:DR. Jackson KC
[2020-08-06] MEDS ORDERED: Potassium Chloride 20 MEQ TAB PO SCH ×2 (08:00→09:45)
[2020-08-06] MEDS: Finasteride 5 MG TAB PO SCH (08:38)
[2020-08-06] MEDS: Carvedilol 6.25 MG TAB PO SCH (08:38)
[2020-08-06] MEDS: Lisinopril 2.5 MG TAB PO SCH (08:40)
[2020-08-06] MEDS: Tamsulosin HCl 0.4 MG CAP PO SCH (08:40)
[2020-08-06] MEDS ORDERED: Aspirin 81 mg Enteric Coated Tablet PO SCH (09:00)
--- NOTE | 2020-08-06 09:56 | PDOC.HOSPP ---
- Subjective Encounter Date: 08/06/20 Encounter Time: 08:30 Subjective: Mr. León was sitting in bed this morning at the time of the visit and was not pleased that he was still in the hospital. He was feeling well - no SOB, chest pain, abdominal pain, or dysuria. Still has Cedeno. He does not want to engage in the interventions recommended by cardiology for his low EF at this time. - Objective Vital Signs & Weight: Vital Signs (12 hours) Temp Pulse Resp BP BP Pulse Ox 08/06/20 08:40 112 H 108/81 08/06/20 08:38 114/81 08/06/20 07:30 97.5 F L 112 H 14 114/81 96 08/06/20 03:03 97.9 F 112 H 20 98/73 95 Weight Weight 141 lb 3.2 oz I&O: 08/05/20 08/06/20 08/07/20 06:59 06:59 06:59 Intake Total 1200 2050 240 Output Total 4074 3800 1000 Balance -2875 -1750 -760 Result Diagrams: 08/02/20 18:34 08/06/20 04:04 Hospitalist ROS - Review of Systems Respiratory: denies: cough, shortness of breath Cardiovascular: denies: chest pain, palpitations, light headedness Gastrointestinal: denies: nausea, vomiting, abdominal pain Genitourinary: denies: dysuria - Medication Medications: Active Medications Generic Name Dose Route Start Last Admin Trade Name Freq PRN Reason Stop Dose Admin Acetaminophen 650 mg 08/03/20 00:42 08/06/20 02:58 Acetaminophen 325 Mg Tab PO 650 mg Q4H PRN Administration Headache/Fever/Mild Pain (1-3) Aspirin 81 mg 08/06/20 09:00 08/06/20 08:40 Aspirin 81 Mg Enteric Coated Tablet PO 81 mg DAILY JEFFERY Administration Carvedilol 12.5 mg 08/04/20 17:00 08/06/20 08:38 Carvedilol 6.25 Mg Tab PO 12.5 mg BID-WM JEFFERY Administration Finasteride 5 mg 08/05/20 09:00 08/06/20 08:38 Finasteride 5 Mg Tab PO 5 mg DAILY JEFFERY Administration Ceftriaxone Sodium 1 gm/ 100 mls @ 200 mls/hr 08/03/20 23:00 08/05/20 21:57 Sodium Chloride IVPB 100 mls Q24HR JEFFERY Administration Lisinopril 2.5 mg 08/03/20 09:00 08/06/20 08:40 Lisinopril 2.5 Mg Tab PO 2.5 mg DAILY JEFFERY Administration Potassium Chloride 20 meq 08/06/20 08:00 08/06/20 08:40 Potassium Chloride 20 Meq Tab PO 20 meq BID-WM JEFFERY Administration Sodium Chloride 10 ml 08/06/20 09:00 08/06/20 08:44 Flush - Normal Saline 10 Ml Syringe IVF 10 ml Q12HR JEFFERY Administration Tamsulosin HCl 0.4 mg 08/03/20 09:00 08/06/20 08:40 Tamsulosin Hcl 0.4 Mg Cap PO 0.4 mg DAILY JEFFERY Administration - Exam General Appearance: NAD Eye: PERRL ENT: normocephalic atraumatic Neck: supple Heart: RRR, no murmur Respiratory: CTAB, no wheezes, no rales, no ronchi Gastrointestinal: soft, non-tender, non-distended, normal bowel sounds Gastrointestinal - other findings: umbilical hernia, Cedeno in place Extremities: 1+ LE edema Hosp A/P (1) Acute heart failure Code(s): I50.9 - HEART FAILURE, UNSPECIFIED Status: Acute (2) Atrial flutter with rapid ventricular response Code(s): I48.92 - UNSPECIFIED ATRIAL FLUTTER Status: Acute (3) Obstructive uropathy Code(s): N13.9 - OBSTRUCTIVE AND REFLUX UROPATHY, UNSPECIFIED Status: Acute (4) UTI (urinary tract infection) Status: Acute - Plan 08/03/2020 Atrial flutter with RVR - Continue Carvedilol for rate control--he is on a low-dose we will also provide low-dose Cardizem and adjust as his heart rate allows to keep the heart rate below 90 -Lopressor PRN for HR >90 - ordered echocardiogram - anticoagulated with Lovenox bid - cardiology following--- after echo report reviewed we will consider putting him on Eliquis versus Xarelto, if that is okay with the business resiliency manager Abnormal troponin probably due to A. 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 -seems he has no prior history of ischemia Lower extremity edema -However his BNP elevated at 1977 - Diuresis with Fursomide; daily weight - Started load lisinopril Obstructive uropathy due to BPH - Continue Flomax - Keep Cedeno - Urology consult placed UTI - Being treated with Rocephin -Follow with the urine DVT prophylaxis - Enoxaparin twice daily - SCDs COVID negative Care discussed with the student and agree with the today's plan 08/04/2020 Atrial flutter with RVR - Echocardiogram today - Rate control with Carvedilol and Diltiazem -- stayed in 110s-120s-- ------------> will increase the Coreg dose as his heart rate still not adequately controlled and since his blood pressure is on the low side I will discontinue the diltiazem which is started at low-dose - Lopressor PRN for HR >90 - cardiology following Lower extermity edema - diuresis with Fursomide - reduced edema since yesterday - weight reduced ~3 kg since yesterday Obstructive uropathy due to BPH - Keep Cedeno for at least 3 weeks outpatient follow-up with new urology group as it appears that he was not welcomed in the previous urology group with Dr. Henley - Renal ultrasound- left hydronephrosis - blood tinged urine - Continue Fl omax - added finasteride - urology following as inpt. Hypokalemmia -Being on diuretics - potassium supplementation Care discussed with the student and agree with today's plan. 08/05/2020 Left heart dysfunction - EF 15-20% - Continue Carvedilol -- heart rate still in 110s - Lovenox started by cardiology -\close monitoring given the hematuria episode. - Metoprolol PRN HR > 90 - cardiology following Obstructive uropathy - Cedeno continues to have blood tinged urine -- discussed possible bladder irrigation with the urologist - will proceed per their recommendations - Continue Flomax and finasteride - no urine culture growth at 48 hours - urology following as inpt. Hematuria -Probably due to Cedeno related trauma however he is on full dose Lovenox -We did the bladder irrigation and seems to be clearing up. Hypokalemia - corrected with potassium supplementation 08/06/2020 Left heart dysfunction - Continue carvedilol, spirinolactone, lisinopril, and furosemide - Started Eliquis -- hematuria cleared significantly with bladder irrigation - Cardiology provided recommendations, Mr. León is not interested in pursuing any of them at this time Obstructive uropathy due to BPH - reduced hematuria n Cedeno - Continue Flomax and finasteride Hypokalemia - given potassium supplementation
[2020-08-06] MEDS ORDERED: Spironolactone 25 MG TAB PO SCH (10:00)
[2020-08-06] MEDS ORDERED: Furosemide 40 MG TAB PO SCH (14:00)
--- NOTE | 2020-08-06 14:30 | PDOC.DS.DS ---
Provider - Provider Date of Admission: 08/02/20 22:31 Admitting Provider: Saran Henry Primary Care Physician: Hallie Lau MD Course - Hospital Course Hospital Course: 25-year-old male presented Atrial flutter with RVR - Continue Carvedilol for rate control--he is on a low-dose we will also provide low-dose Cardizem and adjust as his heart rate allows to keep the heart rate below 90 -Lopressor PRN for HR >90 Abnormal troponin probably due to A. 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 Whitney evaluated him and recommended a further evaluation including ICD implantation. Patient rejected their suggestions. He will follow with Dr. Fitch in 2 to 3 weeks time and they will revisit their recommendations again. Obstructive uropathy due to BPH - Keep Loera for at least 3 weeks outpatient follow-up with new urology group as it appears that he was not welcomed in the previous urology group with Dr. Henley - Renal ultrasound- left hydronephrosis - blood tinged urine - Continue Fl omax - added finasteride Hematuria -Probably due to Loera related trauma however he is on full dose Lovenox--and transitioned later to Eliquis, -We did the bladder irrigation and seems to be clearing up. -Urology evaluated further. Patient did not had any blood clot, okay to continue with his anticoagulation which is switched from Lovenox to Eliquis twice daily upon discharge. I discharged him with a low-dose Lasix and low-dose spironolactone. He does not need potassium supplementation. His blood pressure is on the low side so he is given Coreg as well as other cardiac medications at lower doses. Patient is hemodynamically stable and ready to be discharged home. Needs to follow-up with Dr. Fitch in 2 to 3 weeks time. Resuscitation Status: 08/03/20 00:42 Resuscitation Status Routine Resuscitation Status: FULL: Full Resuscitation - Labs Lab Results: 08/02/20 18:34 08/06/20 04:04 Abnormal Lab Results - Last 48 hrs 08/06/20 04:04: Potassium 3.3 L, Chloride 96 L, Carbon Dioxide 33 H Microbiology - Entire Visit 08/04/20 12:19 Urine clean catch Urine Culture - Final NO GROWTH AT 48 HOURS 08/02/20 20:57 Urine loera catheter Urine Culture - Final NO GROWTH AT 36 HOURS - Physical Exam Vitals: Vital Signs (12 hours) Temp Pulse Resp BP BP Pulse Ox 08/06/20 12:30 98.1 F 114 H 16 106/76 98 08/06/20 08:40 112 H 108/81 08/06/20 08:38 114/81 08/06/20 07:30 97.5 F L 112 H 14 114/81 96 08/06/20 03:03 97.9 F 112 H 20 98/73 95 Weight Weight 141 lb 3.2 oz Physical Exam: The patient was seen and examined on the day of discharge. Problem - Discharge Plan Plan of Treatment: FOCUS: Transition from Acute Care after Discharge GOAL: Successful transition to care in the community YOUR TASKS: (1) review all information outlined in your discharge packet (2) follow any instructions outlined in your discharge packet (3) contact your primary care provider if you have questions or need additional assistance See patient discharge instruction sheet for detailed teaching. Patient verbalizes understanding of medications and is able to verbalize follow-up care. See Discharge Plan for additional discharge information. Patient secured in private vehicle prior to departure. - Problem (1) Acute heart failure Code(s): I50.9 - HEART FAILURE, UNSPECIFIED Status: Acute (2) Atrial flutter with rapid ventricular response Code(s): I48.92 - UNSPECIFIED ATRIAL FLUTTER Status: Acute (3) Obstructive uropathy Code(s): N13.9 - OBSTRUCTIVE AND REFLUX UROPATHY, UNSPECIFIED Status: Acute (4) UTI (urinary tract infection) Status: Acute Plan - Discharge Medications Prescriptions: Spironolactone [Aldactone] 12.5 mg PO DAILY 60 Days #30 tab Carvedilol [Coreg] 3.125 mg PO BID-WM 30 Days #60 tab Aspirin [Ecotrin Low Strength] 81 mg PO DAILY 30 Days #30 tab Apixaban [Eliquis] 5 mg PO BID 30 Days #60 tab Furosemide [Lasix] 20 mg PO BID 30 Days #60 tablet Lisinopril [Zestril] 2.5 mg PO DAILY 30 Days #30 tab Home Medications: Medication Instructions Recorded Confirmed Type Tamsulosin HCl 1 tab PO DAILY 08/03/20 08/03/20 History Apixaban [Eliquis] 5 mg PO BID 30 Days #60 tab 08/06/20 Rx Aspirin [Ecotrin Low Strength] 81 mg PO DAILY 30 Days #30 tab 08/06/20 Rx Carvedilol [Coreg] 3.125 mg PO BID-WM 30 Days #60 tab 08/06/20 Rx Finasteride 5 mg PO DAILY 30 Days #30 tablet 08/06/20 Rx Furosemide [Lasix] 20 mg PO BID 30 Days #60 tablet 08/06/20 Rx Lisinopril [Zestril] 2.5 mg PO DAILY 30 Days #30 tab 08/06/20 Rx Spironolactone [Aldactone] 12.5 mg PO DAILY 60 Days #30 tab 08/06/20 Rx Allergies: No Known Drug Allergies Allergy (Verified 08/03/20 01:02) - Discharge Instructions Discharge Instructions:: Follow-up with your primary care physician in 1 week. Follow-up with Dr. Carmita Kingsley in 2 to 3 weeks. Activity:: Activity as Tolerated Nourishment:: Heart Healthy Diet - Follow up Plan Referrals: Cardiac Rehab - [facility] [Outside] - 7 Days (Your doctor has ordered outpatient cardiac rehab for you to begin within 1-2 weeks after you go home from the hospital. The location nearest to you is the [facility]. We will call you in 3-5 days to get you scheduled for your evaluation. If you do not receive a call, please reach out to us at [phone] and request an appointm ent.) Hallie Lau MD [Primary Care Provider] - 7 Days (Call and make appointment in 7 days) Disposition: HOME Quality - Care Measures CORE MEASURES:: N/A
--- NOTE | 2020-08-06 16:03 | PDOC.EP ---
- Subjective Date: 08/06/20 Time: 16:02 Interval History: Feel good. No clinical change since yesterday. - Review of Systems Constitutional: denies: chills, fever, malaise, sweats, weakness, other Respiratory: denies: cough, dry, hemoptysis, pleuritic pain, shortness of breath, SOB with excertion, sputum, wheezing, other Cardiology: denies: chest pain, edema, heart racing, light headedness, paroxysmal noc. dyspnea, orthopnea, palpitations, passing out, pleuritic pain, pressure, swelling, other - Objective Allergies/Adverse Reactions: Allergies Allergy/AdvReac Type Severity Reaction Status Date / Time No Known Drug Allergies Allergy Verified 08/03/20 01:02 Current Medications Acetaminophen (Acetaminophen 325 Mg Tab) 650 mg PO Q4H PRN PRN Reason: Headache/Fever/Mild Pain (1-3) Last Admin: 08/06/20 02:58 Dose: 650 mg Documented by: Acetaminophen (Acetaminophen 650 Mg Suppository) 650 mg NM Q4H PRN PRN Reason: Headache/Fever/Mild Pain (1-3) Hydrocodone Bitart/Acetaminophen (Hydrocodone/Acetaminophen 5/325 Mg Tablet) 1 tab PO Q4H PRN PRN Reason: Moderate Pain (4-6) Apixaban (Apixaban 5 Mg Tab) 5 mg PO BID [facility] Aspirin (Aspirin 81 Mg Enteric Coated Tablet) 81 mg PO DAILY [facility] Last Admin: 08/06/20 08:40 Dose: 81 mg Documented by: Calcium Carbonate (Calcium Carbonate 500 Mg Chewtab) 1,000 mg PO Q4H PRN PRN Reason: Heartburn or Indigestion Carvedilol ([facility] 6.25 Mg Tab[facility] Finasteride (Finasteride 5 Mg Tab) 5 mg PO DAILY [facility] Last Admin: 08/06/20 08:38 Dose: 5 mg Documented by: Furosemide (Furosemide 40 Mg Tab) 40 mg PO 0900,1400 [facility] Last Admin: 08/06/20 13:52 Dose: 40 mg Documented by: Ceftriaxone Sodium 1 gm/ (Sodium Chloride) 100 mls @ 200 mls/hr IVPB Q24HR [facility] Last Admin: 08/05/20 21:57 Dose: 100 mls Documented by: Lisinopril (Lisinopril 2.5 Mg Tab) 2.5 mg PO DAILY [facility] Last Admin: 08/06/20 08:40 Dose: 2.5 mg Documented by: Ondansetron HCl (Ondansetron Odt 4 Mg Tab) 4 mg PO Q6H PRN PRN Reason: Nausea/Vomiting Ondansetron HCl (Ondansetron Pf 4 Mg/2 Ml Vial) 4 mg IVP Q6H PRN PRN Reason: Nausea/Vomiting Potassium Chloride (Potassium Chloride 20 Meq Tab) 10 meq PO DAILY [facility] Sodium Chloride (Flush - Normal Saline 10 Ml Syringe) 10 ml IVF Q12HR [facility] Last Admin: 08/06/20 08:44 Dose: 10 ml Documented by: Sodium Chloride (Flush - Normal Saline 10 Ml Syringe) 10 ml IVF PRN PRN PRN Reason: Saline Flush Spironolactone (Spironolactone 25 Mg Tab) 12.5 mg PO DAILY [facility] Tamsulosin HCl (Tamsulosin Hcl 0.4 Mg Cap) 0.4 mg PO DAILY [facility] Last Admin: 08/06/20 08:40 Dose: 0.4 mg Documented by: Vital Signs & Weight: Vital Signs Temp Pulse Resp BP BP Pulse Ox 08/06/20 12:30 98.1 F 114 H 16 106/76 98 08/06/20 08:40 112 H 108/81 08/06/20 08:38 114/81 08/06/20 07:30 97.5 F L 112 H 14 114/81 96 Weight 141 lb 3.2 oz I/O: I/O 08/05/20 08/06/20 08/07/20 06:59 06:59 06:59 Intake Total 1200 2050 240 Output Total 4070 3800 1000 Balance -2875 -1750 -760 - Quality Measures CV meds: Aspirin: No - Physical Exam General: alert & oriented x3 Neck: supple neck, no JVD/HJR Cardiology: no murmur, regular rhythm, tachycardia Lungs: normal breath sounds Neurology: grossly intact Abdomen: unremarkable Extremities: warm Skin: device site stable w/o swelling Musculoskeletal: no pain - Labs Result Diagrams: 08/02/20 18:34 08/06/20 04:04 - EKG Interpretation EKG shows: Typical atrial flutter - Assessment/Plan Assessment/Plan: ASSESSMENT AND PLAN: Mr. León is a 75-year-old man with newly found possibly typical isthmus-dependent atrial flutter with rapid rates, also newly found cardiomyopathy, bifascicular block on EKG. He is admitted with obstructive uropathy due to benign prostatic hypertrophy and related hydronephrosis. He is status post Cedeno placement, some blood-tinged urine, but no severe anemia. 1. Possibly typical, isthmus dependent atrial flutter, possibly typical isthmus- dependent with rapid rate. 2. Newly found likely nonischemic cardiomyopathy to a reduced LVEF at 15% to 20%. 3. BPH and subsequent urinary obstruction, status post indwelling Cedeno with improving hydronephrosis and hematuria. 4. History of EtOH abuse. 5. History of hypertension. Anticoagulation could be a consideration on the other hand with a hematuria, this may not be feasible at this time. Hence, his reduced LVEF, heart rate reduction would be paramount, but difficult with negative chronotropic agnets alone. ELENO guided cardioversion could be considered, possibly ELENO guided atrial flutter ablation also a very reasonable option for him. At this point, he is not interested in any of these procedures. Reduced LVEF, newly found of unclear etiology. The ischemic workup was referred to Dr. Fitch, although most likely he has nonischemic cardiomyopathy. Possibly rate-related cardiomyopathy also could contribute to his LVEF decrease. We discussed the benefit of heart rate reduction in achieving some recovery of the left ventricular systolic function. He also will need guideline directed medical therapy for heart failure as per Dr. Fitch. He is considering outpt follow up in my office.
[2020-08-06 16:57] VITALS: BP 112/80; TEMP 98.4
[2020-08-06] MEDS ORDERED: Carvedilol 6.25 MG TAB PO SCH (17:00)
[2020-08-06] MEDS ORDERED: Apixaban 5 MG TAB PO SCH (21:00)
[2020-08-07] MEDS ORDERED: Spironolactone 25 MG TAB PO SCH (09:00)
[2020-08-07] MEDS ORDERED: Potassium Chloride 20 MEQ TAB PO SCH (09:00)
--- NOTE | 2020-08-07 14:55 | EKG ---
Test Reason : Blood Pressure : / mmHG Vent. Rate : 118 BPM Atrial Rate : 236 BPM P-R Int : 000 ms QRS Dur : 144 ms QT Int : 374 ms P-R-T Axes : 259 -54 110 degrees QTc Int : 524 ms Atrial flutter with 2:1 A-V conduction Right bundle branch block Left anterior fascicular block Bifascicular block T wave abnormality, consider lateral ischemia Abnormal ECG Confirmed by PONCHO SOSA, MICAH ([id number]), editorial director JOSEPHINE NAILS ([id number]) on 08/07/2020 2:54:57 PM Referred By: Confirmed By:MICAH ISAAC MD
== END 2020-08-06 16:35 | disposition home or self-care (01) | DRG 308 ==
LOC: ERS 16:24 → ERHOLD 22:31 → 2NO 08-03 17:50
PROVIDERS: ADMIT Internal Medicine; ATTEND Internal Medicine
DX: I48.92 Unspecified atrial flutter (principal); I50.23 Acute on chronic systolic (congestive) heart failure; N13.6 Pyonephrosis; N40.1 Benign prostatic hyperplasia with lower urinary tract symptoms; I42.8 Other cardiomyopathies; Z20.828 Contact with and (suspected) exposure to other viral communicable diseases; R33.9 Retention of urine, unspecified; E87.6 Hypokalemia; Z79.899 Other long term (current) drug therapy; Z87.891 Personal history of nicotine dependence; Z90.89 Acquired absence of other organs
CPT/HCPCS: 36415; 51702; 71045; 74177; 76770; 80048; 80053; 80061; 80306; 80307; 81003; 81015; 82553; 83690; 83735; 83880; 84443; 84484; 85025; 87086; 87635; 93005; 93010; 93306; 94760; 96365; 96372; 96375; 96376; 97139; J0696; J1650; J1940; J3475; J3490; Q9967; U0003

== ENCOUNTER 2021-06-15 09:29 | Outpatient (CLI) | payer MEDICARE | END 2021-06-15 09:30 | disposition home or self-care (01) | LOC: RAD 09:29 | PROVIDERS: ATTEND Internal Medicine Cardiovascular Disease | DX: J90 Pleural effusion, not elsewhere classified (principal) | CPT/HCPCS: 71046 ==

== ENCOUNTER 2021-07-02 14:01 | Emergency (ER) | payer MEDICARE | END 2021-07-02 17:00 | disposition home or self-care (01) | LOC: ERS 14:01 | DX: T83.098A Other mechanical complication of other urinary catheter, initial encounter (principal); Z87.891 Personal history of nicotine dependence | CPT/HCPCS: 99283 ==

== ENCOUNTER 2021-07-12 00:26 | Emergency (ER) | payer MEDICARE ==
[2021-07-12 02:59] LABS: #Basophils 0.1 thou/uL (0.0-0.2); #Eosinphils 0.1 thou/uL (0.0-0.7); #Lymphocytes 1.3 thou/uL (1.20-3.40); #Monocytes 0.4 thou/uL (0.11-0.59); #Neutrophils 2.9 thou/uL (1.40-6.50); %Basophils 1.1 % (0.0-1.0); %Eosinophils 2.9 % (0.0-10.0); %Monocytes 8.8 % (0.0-10.0); %Neutrophils 60.2 % (42.0-75.0); Mean Corpuscular HGB CONC 32.5 g/dL (32.0-36.0); Mean Corpuscular Hemoglobin 34.9 pg (27.0-31.0); Mean Platelet Volume 7.6 fL (7.4-10.4); Platelet Count 196 thou/uL (130-400); RBC Distribution Width 15.1 % (11.5-14.5); Red Blood Cell (RBC) Count 4.02 mill/uL (4.70-6.10); White Blood Cell (WBC) Count 4.9 thou/uL (4.8-10.8)
[2021-07-12 03:17] LABS: ALT (SGPT) 11 U/L (8-55); AST (SGOT) 25 U/L (5-34); Albumin 3.5 g/dL (3.4-4.8); Alkaline Phosphatase 166 U/L (40-110); Anion Gap 16 mmol/L (10-20); BUN (Urea Nitrogen) 19 mg/dL (8.4-25.7); Bilirubin, Total 1.7 mg/dL (0.2-1.2); Calc. Creatinine Clearance 0 mL/min (70-130); Calcium 9.3 mg/dL (7.8-10.44); Carbon Dioxide 24 mmol/L (23-31); Chloride 104 mmol/L (98-107); Globulin 3.6 g/dL (2.4-3.5); Glucose 116 mg/dL (83-110); Potassium 3.5 mmol/L (3.5-5.1); Protein, Total 7.1 g/dL (5.8-8.1); Sodium 140 mmol/L (136-145)
[2021-07-12 04:16] LABS: Bilirubin Negative (Negative); Blood, Urine 3+ (Negative); Clarity Turbid (Clear); Glucose, Urine (Dipstick) Normal (Negative); Ketone, Urine Negative (Negative); Leukocyte 500 Leu/uL (Negative); Nitrite Negative (Negative); Protein, Urine (Dipstick) 200 mg/dL (Neg-Trace); Specific Gravity, Urine 1.019 (1.002-1.036); Squamous Epithelial 0-3 HPF (0-3); WBC/HPF Greater than 50 HPF (0-3); pH, Urine 6.5 (5.0-9.0)
[2021-07-12 04:30] LABS: Bacteria/HPF 1+ HPF (None Seen)
== END 2021-07-12 03:38 | disposition left against medical advice (07) ==
LOC: ERS 00:26
DX: B86 Scabies (principal); R33.9 Retention of urine, unspecified; Z87.891 Personal history of nicotine dependence; Z87.442 Personal history of urinary calculi
CPT/HCPCS: 36415; 51702; 80053; 81003; 81015; 85025

== ENCOUNTER 2021-10-10 04:53 | Emergency (ER) | payer OTHER ==
[2021-10-10 06:22] LABS: Bacteria/HPF 3+ HPF (None Seen); Bilirubin Negative (Negative); Blood, Urine 2+ (Negative); Clarity Extra Turbid (Clear); Glucose, Urine (Dipstick) Normal (Negative); Ketone, Urine Negative (Negative); Leukocyte 500 Leu/uL (Negative); Nitrite Negative (Negative); Protein, Urine (Dipstick) 100 mg/dL (Neg-Trace); RBC/HPF Greater than 50 HPF (0-3); Specific Gravity, Urine 1.018 (1.002-1.036); Squamous Epithelial 0-3 HPF (0-3); Urobilinogen Normal mg/dL (Less than 2); WBC/HPF Greater than 50 HPF (0-3)
[2021-10-10 06:51] LABS: Anion Gap 15 mmol/L (10-20); BUN (Urea Nitrogen) 20 mg/dL (8.4-25.7); Calc. Creatinine Clearance 0 mL/min (70-130); Calcium 8.8 mg/dL (7.8-10.44); Carbon Dioxide 22 mmol/L (23-31); Chloride 105 mmol/L (98-107); Glucose 96 mg/dL (83-110); Potassium 3.7 mmol/L (3.5-5.1); Sodium 138 mmol/L (136-145)
== END 2021-10-10 07:40 | disposition home or self-care (01) ==
LOC: ERS 04:53
DX: T83.098A Other mechanical complication of other urinary catheter, initial encounter (principal); R33.9 Retention of urine, unspecified; Z87.891 Personal history of nicotine dependence
CPT/HCPCS: 36415; 51702; 80048; 81003; 81015; 87077; 87086; 87186

== ENCOUNTER 2021-12-26 12:21 | Inpatient (IN) | payer MEDICARE, OTHER ==
[2021-12-26 12:41] LABS: #Monocytes 0.5 thou/uL (0.11-0.59); #Neutrophils 7.8 thou/uL (1.40-6.50); %Basophils 0.2 % (0.0-1.0); %Eosinophils 0.3 % (0.0-10.0); %Lymphocytes 10.2 % (21.0-51.0); %Monocytes 5.1 % (0.0-10.0); %Neutrophils 84.2 % (42.0-75.0); Mean Corpuscular HGB CONC 30.2 g/dL (32.0-36.0); Mean Corpuscular Hemoglobin 31.6 pg (27.0-31.0); Mean Platelet Volume 9.4 fL (7.4-10.4); Platelet Count 177 thou/uL (130-400); RBC Distribution Width 17.4 % (11.5-14.5); Red Blood Cell (RBC) Count 5.07 mill/uL (4.70-6.10); White Blood Cell (WBC) Count 9.3 thou/uL (4.8-10.8)
[2021-12-26] MEDS ORDERED: Cefepime 2 GM VIAL ONE (12:48)
[2021-12-26 12:55] LABS: ALT (SGPT) 25 U/L (8-55); AST (SGOT) 105 U/L (5-34); Albumin 3.7 g/dL (3.4-4.8); Alkaline Phosphatase 212 U/L (40-110); Anion Gap 28 mmol/L (10-20); BUN (Urea Nitrogen) 48 mg/dL (8.4-25.7); Bilirubin, Total 4.5 mg/dL (0.2-1.2); Calc. Creatinine Clearance 0 mL/min (70-130); Calcium 9.7 mg/dL (7.8-10.44); Carbon Dioxide 12 mmol/L (23-31); Chloride 101 mmol/L (98-107); Globulin 3.9 g/dL (2.4-3.5); Potassium 5.5 mmol/L (3.5-5.1); Protein, Total 7.6 g/dL (5.8-8.1); Sodium 135 mmol/L (136-145)
[2021-12-26 12:59] LABS: Glucose 51 mg/dL (83-110)
[2021-12-26] MEDS ORDERED: Vancomycin HCl 1.5 GM in Sodium Chloride 0.9% 250 ML 300 ML IVPB SCH ×2 (13:15→18:00)
[2021-12-26 13:29] LABS: CKMB 117.4 ng/mL (0-6.6)
[2021-12-26 13:48] LABS: Analyzer IN Cardio ER; Base Excess (BEa) -11.8 mEq/L (-2.0 to +3.0); Calcium, Ionized (arterial) 1.13 mmol/L (1.12-1.30); Carboxyhemoglobin (COHb) 0.7 gm% (0.0-3.0); Hemoglobin (Hb) 15.4 g/dL (14.0-18.0); O2 Tension (PaO2), arterial 146.8 mmHg (> 70.0); Potassium - ABG Lab 5.09 mmol/L (3.70-5.30); pH, Arterial 7.36 (7.35-7.45)
[2021-12-26 13:50] LABS: ALV-art Gradient 85.005 mmHg (0-20); CO2 Tension 19.9 mmHg (35.0-45.0); Puncture Site RRA
[2021-12-26 13:51] LABS: INR-International Normal Ratio 3.2; Prothrombin Time 33.7 sec (12.0-14.7)
[2021-12-26] MEDS ORDERED: Furosemide 40 MG/4 ML VIAL ONE (13:55)
[2021-12-26] MEDS ORDERED: Digoxin 0.5 MG/2 ML AMP ONE (15:39)
[2021-12-26] MEDS ORDERED: Senokot S 8.6-50 MG TAB PO PRN (16:10)
[2021-12-26 16:30] LABS: Bacteria/HPF 1+ HPF (None Seen); Bilirubin Negative (Negative); Blood, Urine 3+ (Negative); Clarity Turbid (Clear); Glucose, Urine (Dipstick) Normal (Negative); Ketone, Urine Negative (Negative); Leukocyte 500 Leu/uL (Negative); Nitrite Negative (Negative); Protein, Urine (Dipstick) 50 mg/dL (Neg-Trace); RBC/HPF Greater than 50 HPF (0-3); Squamous Epithelial 0-3 HPF (0-3); Urobilinogen Normal mg/dL (Less than 2); WBC/HPF Greater than 50 HPF (0-3); pH, Urine 5.5 (5.0-9.0)
[2021-12-26 16:33] LABS: Lactic Acid 9.3 mmol/L (0.5-2.2)
[2021-12-26] MEDS ORDERED: Vancomycin 1 GM in Premix Bag 1 BAG IVPB SCH ×2 (17:00→21:00)
[2021-12-26] MEDS ORDERED: Dextrose 50% Abboject 50 ML SYRINGE SLOW IVP PRN (17:43)
[2021-12-26] MEDS ORDERED: Sodium Bicarbonate 150 MEQ in Dextrose 5% in Water 1,000 ML IV SCH (18:00)
[2021-12-26] MEDS ORDERED: Digoxin 0.5 MG/2 ML AMP SLOW IVP SCH ×2 (18:00→23:59)
[2021-12-26] MEDS: Acetaminophen 325 MG TAB PO PRN (18:14)
[2021-12-26] MEDS ORDERED: Dextrose 5 %-0.45 % NaCl 1,000 ML IV SCH (18:15)
[2021-12-26 18:26] VITALS: BMI 27.2
[2021-12-26 18:39] LABS: SARS-CoV-2 NAA Rapid Test Not Detected (NotDetected)
[2021-12-26] MEDS: Famotidine 20 MG TAB PO SCH (20:05)
[2021-12-26 20:10] LABS: Anion Gap 22 mmol/L (10-20); BUN (Urea Nitrogen) 45 mg/dL (8.4-25.7); Calc. Creatinine Clearance 58 mL/min (70-130); Calcium 8.5 mg/dL (7.8-10.44); Carbon Dioxide 13 mmol/L (23-31); Chloride 107 mmol/L (98-107); Glucose 72 mg/dL (83-110); Potassium 4.9 mmol/L (3.5-5.1); Sodium 137 mmol/L (136-145)
[2021-12-26 20:14] LABS: Lactic Acid 6.2 mmol/L (0.5-2.2)
[2021-12-26 23:51] LABS: Lactic Acid 4.1 mmol/L (0.5-2.2)
[2021-12-27] MEDS ORDERED: Cefepime 1 GM in Sodium Chloride 0.9% 100 ML IVPB SCH (01:00)
[2021-12-27] MEDS ORDERED: Furosemide 40 MG/4 ML VIAL ONE (03:03)
[2021-12-27] MEDS ORDERED: Furosemide 40 MG/4 ML VIAL SLOW IVP SCH (03:15)
[2021-12-27 03:22] LABS: Actual Bicarbonate (HCO3a) 22.2 mEq/L (22-28); Base Excess (BEa) -1.4 mEq/L (-2.0 to +3.0); Calcium, Ionized (arterial) 1.13 mmol/L (1.12-1.30); Carboxyhemoglobin (COHb) 0.7 gm% (0.0-3.0); Hemoglobin (Hb) 14.7 g/dL (14.0-18.0); O2 Tension (PaO2), arterial 169.8 mmHg (> 70.0); pH, Arterial 7.43 (7.35-7.45)
[2021-12-27 03:35] LABS: Puncture Site RRA
[2021-12-27 03:42] LABS: #Lymphocytes 0.4 thou/uL (1.20-3.40); #Monocytes 0.3 thou/uL (0.11-0.59); #Neutrophils 5.4 thou/uL (1.40-6.50); %Basophils 0.1 % (0.0-1.0); %Eosinophils 0.1 % (0.0-10.0); %Lymphocytes 6.3 % (21.0-51.0); %Monocytes 4.1 % (0.0-10.0); %Neutrophils 89.3 % (42.0-75.0); Hemoglobin 15.3 g/dL (14.0-18.0); Mean Corpuscular HGB CONC 30.9 g/dL (32.0-36.0); Mean Corpuscular Hemoglobin 31.8 pg (27.0-31.0); Mean Platelet Volume 9.3 fL (7.4-10.4); Platelet Count 132 thou/uL (130-400); RBC Distribution Width 17.5 % (11.5-14.5); Red Blood Cell (RBC) Count 4.83 mill/uL (4.70-6.10)
[2021-12-27 03:52] LABS: INR-International Normal Ratio 2.7; Prothrombin Time 28.9 sec (12.0-14.7)
[2021-12-27 04:00] LABS: Lactic Acid 2.9 mmol/L (0.5-2.2)
[2021-12-27 04:02] LABS: Anion Gap 16 mmol/L (10-20); BUN (Urea Nitrogen) 51 mg/dL (8.4-25.7); Calc. Creatinine Clearance 53 mL/min (70-130); Calcium 8.6 mg/dL (7.8-10.44); Carbon Dioxide 22 mmol/L (23-31); Chloride 103 mmol/L (98-107); Glucose 157 mg/dL (83-110); Potassium 5.1 mmol/L (3.5-5.1); Sodium 136 mmol/L (136-145)
[2021-12-27 04:05] LABS: ALT (SGPT) 36 U/L (8-55); AST (SGOT) 153 U/L (5-34); Alkaline Phosphatase 170 U/L (40-110); Bilirubin, Direct 2.1 mg/dL (0.1-0.3); Bilirubin, Total 3.2 mg/dL (0.2-1.2); Protein, Total 6.2 g/dL (5.8-8.1)
[2021-12-27 04:33] LABS: Digoxin 31.55 ng/mL (0.8-2.0)
[2021-12-27] MEDS: Famotidine 20 MG TAB PO SCH ×2 (08:43→21:05)
[2021-12-27] MEDS: Carvedilol 3.125 MG TAB PO SCH ×2 (08:43→16:32)
[2021-12-27] MEDS ORDERED: Enoxaparin Sodium 40 MG/0.4 ML SYRINGE SC SCH (09:00)
[2021-12-28] MEDS ORDERED: Cefepime 1 GM in Sodium Chloride 0.9% 100 ML IVPB SCH ×2 (01:00→13:00)
[2021-12-28] MEDS: Acetaminophen 325 MG TAB PO PRN (03:44)
[2021-12-28 06:25] LABS: INR-International Normal Ratio 2.1; Prothrombin Time 23.6 sec (12.0-14.7)
[2021-12-28 06:34] LABS: Anion Gap 11 mmol/L (10-20); BUN (Urea Nitrogen) 39 mg/dL (8.4-25.7); Calc. Creatinine Clearance 76 mL/min (70-130); Carbon Dioxide 26 mmol/L (23-31); Chloride 103 mmol/L (98-107); Glucose 153 mg/dL (83-110); Potassium 3.4 mmol/L (3.5-5.1); Sodium 137 mmol/L (136-145)
[2021-12-28 06:35] LABS: #Lymphocytes 0.3 thou/uL (1.20-3.40); #Monocytes 0.4 thou/uL (0.11-0.59); #Neutrophils 4.4 thou/uL (1.40-6.50); %Eosinophils 0.4 % (0.0-10.0); %Lymphocytes 5.6 % (21.0-51.0); %Neutrophils 86.9 % (42.0-75.0); Digoxin 0.79 ng/mL (0.8-2.0); Hemoglobin 15.1 g/dL (14.0-18.0); Mean Corpuscular HGB CONC 32.7 g/dL (32.0-36.0); Mean Corpuscular Hemoglobin 33.2 pg (27.0-31.0); Platelet Count 108 thou/uL (130-400); Platelet Morphology Comment Appears Decreased; RBC Distribution Width 17.5 % (11.5-14.5); Red Blood Cell (RBC) Count 4.55 mill/uL (4.70-6.10); White Blood Cell (WBC) Count 5.1 thou/uL (4.8-10.8)
[2021-12-28] MEDS ORDERED: Potassium Chloride 20 MEQ TAB PO SCH (08:30)
[2021-12-28] MEDS: Furosemide 40 MG/4 ML VIAL SLOW IVP SCH (10:03)
[2021-12-28] MEDS: Famotidine 20 MG TAB PO SCH ×2 (10:03→20:27)
[2021-12-28] MEDS: Carvedilol 3.125 MG TAB PO SCH ×2 (10:03→16:55)
[2021-12-28] MEDS: Bisacodyl 5 MG TAB PO PRN (16:54)
[2021-12-28] MEDS: cefTRIAXone\\ROCEPHIN 1 GM in Sodium Chloride 0.9% 100 ML IVPB SCH (16:54)
[2021-12-28] MEDS: Polyvinyl Alcohol 1.4%/Povidone 0.6% Opth Drops EA EYE SCH (20:27)
[2021-12-29 05:30] LABS: #Lymphocytes 0.6 thou/uL (1.20-3.40); #Monocytes 0.6 thou/uL (0.11-0.59); #Neutrophils 3.6 thou/uL (1.40-6.50); %Eosinophils 0.6 % (0.0-10.0); %Lymphocytes 11.5 % (21.0-51.0); %Monocytes 12.4 % (0.0-10.0); %Neutrophils 75.5 % (42.0-75.0); Anion Gap 11 mmol/L (10-20); BUN (Urea Nitrogen) 30 mg/dL (8.4-25.7); Calc. Creatinine Clearance 93 mL/min (70-130); Calcium 8.1 mg/dL (7.8-10.44); Carbon Dioxide 27 mmol/L (23-31); Chloride 101 mmol/L (98-107); Glucose 100 mg/dL (83-110); Hemoglobin 14.4 g/dL (14.0-18.0); Mean Corpuscular HGB CONC 32.2 g/dL (32.0-36.0); Mean Corpuscular Hemoglobin 32.5 pg (27.0-31.0); Mean Platelet Volume 9.6 fL (7.4-10.4); Platelet Count 102 thou/uL (130-400); Potassium 3.4 mmol/L (3.5-5.1); RBC Distribution Width 17.5 % (11.5-14.5); Red Blood Cell (RBC) Count 4.44 mill/uL (4.70-6.10); Sodium 136 mmol/L (136-145); White Blood Cell (WBC) Count 4.8 thou/uL (4.8-10.8)
[2021-12-29] MEDS ORDERED: Potassium Chloride 20 MEQ TAB PO SCH (08:30)
[2021-12-29] MEDS: Polyvinyl Alcohol 1.4%/Povidone 0.6% Opth Drops EA EYE SCH ×2 (09:00→20:20)
[2021-12-29] MEDS: Furosemide 40 MG/4 ML VIAL SLOW IVP SCH (09:41)
[2021-12-29] MEDS: Carvedilol 3.125 MG TAB PO SCH ×2 (09:41→17:28)
[2021-12-29] MEDS: Famotidine 20 MG TAB PO SCH ×2 (09:41→20:19)
[2021-12-29] MEDS ORDERED: Phytonadione 5 MG TAB PO SCH (15:45)
[2021-12-29] MEDS: cefTRIAXone\\ROCEPHIN 1 GM in Sodium Chloride 0.9% 100 ML IVPB SCH (17:28)
[2021-12-29] MEDS ORDERED: Communication Order-Pharmacy FS SCH (19:15)
[2021-12-30 04:59] LABS: #Lymphocytes 0.8 thou/uL (1.20-3.40); #Monocytes 0.7 thou/uL (0.11-0.59); #Neutrophils 3.3 thou/uL (1.40-6.50); %Basophils 0.4 % (0.0-1.0); %Eosinophils 0.8 % (0.0-10.0); %Lymphocytes 16.4 % (21.0-51.0); %Monocytes 13.5 % (0.0-10.0); %Neutrophils 68.9 % (42.0-75.0); Hemoglobin 14.6 g/dL (14.0-18.0); Mean Corpuscular HGB CONC 30.7 g/dL (32.0-36.0); Mean Corpuscular Hemoglobin 31.4 pg (27.0-31.0); Mean Platelet Volume 9.2 fL (7.4-10.4); Platelet Count 107 thou/uL (130-400); RBC Distribution Width 17.5 % (11.5-14.5); Red Blood Cell (RBC) Count 4.64 mill/uL (4.70-6.10); White Blood Cell (WBC) Count 4.8 thou/uL (4.8-10.8)
[2021-12-30 05:10] LABS: INR-International Normal Ratio 1.2; Prothrombin Time 15.8 sec (12.0-14.7)
[2021-12-30 05:11] LABS: PTT 35.2 sec (22.9-36.1)
[2021-12-30 05:17] LABS: Anion Gap 10 mmol/L (10-20); BUN (Urea Nitrogen) 24 mg/dL (8.4-25.7); Calc. Creatinine Clearance 86 mL/min (70-130); Carbon Dioxide 29 mmol/L (23-31); Chloride 98 mmol/L (98-107); Glucose 96 mg/dL (83-110); Potassium 3.4 mmol/L (3.5-5.1); Sodium 134 mmol/L (136-145)
[2021-12-30] MEDS: Carvedilol 6.25 MG TAB PO SCH ×2 (06:23→17:52)
[2021-12-30] MEDS ORDERED: Heparin 10,000 UNITS/ 10 ML VIAL ONE (06:23)
[2021-12-30] MEDS ORDERED: Lidocaine 1% (PF) 30 ML VIAL ONE (06:23)
[2021-12-30] MEDS: Sodium Chloride 0.9% 1,000 ML IV SCH ×2 (06:24→17:50)
[2021-12-30] MEDS ORDERED: Fentanyl 100 MCG/2 ML VIAL ONE (07:18)
[2021-12-30] MEDS ORDERED: Midazolam HCl 2 mg/2 ml Vial ONE (07:18)
[2021-12-30] MEDS ORDERED: Sodium Chloride 0.9% 200 ML IV PRN (08:03)
[2021-12-30] MEDS ORDERED: Acetaminophen/Codeine 30-300mg Tablet PO PRN ×2 (08:03)
[2021-12-30] MEDS ORDERED: Nitroglycerin 0.4 MG TAB (25 Tab Bottle) SL PRN (08:03)
[2021-12-30] MEDS ORDERED: Sodium Chloride 0.9% 1,000 ML IV SCH (08:04)
[2021-12-30] MEDS: Famotidine 20 MG TAB PO SCH ×2 (09:16→20:21)
[2021-12-30] MEDS: Polyvinyl Alcohol 1.4%/Povidone 0.6% Opth Drops EA EYE SCH ×2 (09:16→20:22)
[2021-12-30] MEDS: Furosemide 40 MG/4 ML VIAL SLOW IVP SCH (09:16)
[2021-12-30] MEDS ORDERED: Iopamidol 370 76% 100 ML VIAL ONE (14:33)
[2021-12-30] MEDS ORDERED: Iopamidol 370 76% 50 ML VIAL FS ONE (14:33)
[2021-12-30] MEDS: cefTRIAXone\\ROCEPHIN 1 GM in Sodium Chloride 0.9% 100 ML IVPB SCH (17:49)
[2021-12-30] MEDS: Bisacodyl 5 MG TAB PO PRN (20:21)
[2021-12-30] MEDS: Amiodarone 200 MG TAB PO SCH (21:11)
[2021-12-31] MEDS: Polyvinyl Alcohol 1.4%/Povidone 0.6% Opth Drops EA EYE SCH ×6 (03:23→21:45)
[2021-12-31 04:53] LABS: #Eosinphils 0.1 thou/uL (0.0-0.7); #Monocytes 0.6 thou/uL (0.11-0.59); #Neutrophils 3.3 thou/uL (1.40-6.50); %Basophils 0.1 % (0.0-1.0); %Eosinophils 1.4 % (0.0-10.0); %Lymphocytes 19.7 % (21.0-51.0); %Monocytes 11.9 % (0.0-10.0); %Neutrophils 66.8 % (42.0-75.0); Hemoglobin 15.4 g/dL (14.0-18.0); Mean Corpuscular HGB CONC 31.8 g/dL (32.0-36.0); Mean Corpuscular Hemoglobin 32.6 pg (27.0-31.0); Platelet Count 101 thou/uL (130-400); RBC Distribution Width 17.7 % (11.5-14.5); Red Blood Cell (RBC) Count 4.72 mill/uL (4.70-6.10)
[2021-12-31 05:10] LABS: Anion Gap 12 mmol/L (10-20); BUN (Urea Nitrogen) 23 mg/dL (8.4-25.7); Calc. Creatinine Clearance 85 mL/min (70-130); Calcium 7.7 mg/dL (7.8-10.44); Carbon Dioxide 31 mmol/L (23-31); Chloride 98 mmol/L (98-107); Glucose 92 mg/dL (83-110); Potassium 4.5 mmol/L (3.5-5.1); Sodium 136 mmol/L (136-145)
[2021-12-31] MEDS: Carvedilol 6.25 MG TAB PO SCH ×2 (08:56→17:19)
[2021-12-31] MEDS: Furosemide 40 MG/4 ML VIAL SLOW IVP SCH (08:56)
[2021-12-31] MEDS: Amiodarone 200 MG TAB PO SCH ×2 (08:56→22:36)
[2021-12-31] MEDS: Famotidine 20 MG TAB PO SCH ×2 (08:56→21:44)
[2021-12-31] MEDS: cefTRIAXone\\ROCEPHIN 1 GM in Sodium Chloride 0.9% 100 ML IVPB SCH (17:18)
[2022-01-01] MEDS: Polyvinyl Alcohol 1.4%/Povidone 0.6% Opth Drops EA EYE SCH ×4 (00:50→14:34)
[2022-01-01] MEDS: Acetaminophen 325 MG TAB PO PRN (03:52)
[2022-01-01] MEDS ORDERED: Furosemide 40 MG TAB PO SCH (07:30)
[2022-01-01 08:05] VITALS: BP 110/77; TEMP 97.7
[2022-01-01] MEDS: Famotidine 20 MG TAB PO SCH (08:06)
[2022-01-01] MEDS: Carvedilol 6.25 MG TAB PO SCH (08:06)
[2022-01-01] MEDS: Amiodarone 200 MG TAB PO SCH (08:07)
[2022-01-01] MEDS ORDERED: Apixaban 5 MG TAB PO SCH (09:00)
[2022-01-01 09:08] LABS: #Basophils 0.1 thou/uL (0.0-0.2); #Eosinphils 0.1 thou/uL (0.0-0.7); #Lymphocytes 1.2 thou/uL (1.20-3.40); #Monocytes 0.5 thou/uL (0.11-0.59); #Neutrophils 2.4 thou/uL (1.40-6.50); %Basophils 1.4 % (0.0-1.0); %Eosinophils 1.8 % (0.0-10.0); %Lymphocytes 28.6 % (21.0-51.0); %Monocytes 11.4 % (0.0-10.0); %Neutrophils 56.8 % (42.0-75.0); Hemoglobin 16.1 g/dL (14.0-18.0); Mean Corpuscular HGB CONC 30.8 g/dL (32.0-36.0); Mean Corpuscular Hemoglobin 31.6 pg (27.0-31.0); Mean Platelet Volume 8.7 fL (7.4-10.4); Platelet Count 122 thou/uL (130-400); RBC Distribution Width 17.7 % (11.5-14.5); Red Blood Cell (RBC) Count 5.09 mill/uL (4.70-6.10); White Blood Cell (WBC) Count 4.1 thou/uL (4.8-10.8)
[2022-01-01 09:20] LABS: Anion Gap 11 mmol/L (10-20); BUN (Urea Nitrogen) 16 mg/dL (8.4-25.7); Calc. Creatinine Clearance 87 mL/min (70-130); Calcium 7.8 mg/dL (7.8-10.44); Carbon Dioxide 27 mmol/L (23-31); Chloride 101 mmol/L (98-107); Glucose 101 mg/dL (83-110); Potassium 3.2 mmol/L (3.5-5.1); Sodium 136 mmol/L (136-145)
[2022-01-01] MEDS ORDERED: Potassium Chloride 20 MEQ TAB PO SCH (10:15)
== END 2022-01-01 14:02 | disposition home or self-care (01) | DRG 698 ==
LOC: ERS 12:21 → CCU 15:26 → NEURO 12-27 19:47
PROVIDERS: ADMIT Family Medicine; ATTEND Family Medicine
PROC: 0T2BX0Z Change Drainage Device in Bladder, External Approach (ICD-10-PCS; principal; 2021-12-26)
PROC: 3E03329 Introduction of Other Anti-infective into Peripheral Vein, Percutaneous Approach (ICD-10-PCS; 2021-12-26)
DX: T83.518A Infection and inflammatory reaction due to other urinary catheter, initial encounter (principal); A41.51 Sepsis due to Escherichia coli [E. coli]; R65.20 Severe sepsis without septic shock; J96.01 Acute respiratory failure with hypoxia; I50.23 Acute on chronic systolic (congestive) heart failure; I21.A1 Myocardial infarction type 2; I13.0 Hypertensive heart and chronic kidney disease with heart failure and stage 1 through stage 4 chronic kidney disease, or unspecified chronic kidney disease; I48.92 Unspecified atrial flutter; N13.8 Other obstructive and reflux uropathy; E87.2 Acidosis; N17.9 Acute kidney failure, unspecified; I47.2 Ventricular tachycardia; I42.9 Cardiomyopathy, unspecified; D68.9 Coagulation defect, unspecified; R18.8 Other ascites; Z20.822 Contact with and (suspected) exposure to COVID-19; N18.9 Chronic kidney disease, unspecified; I27.20 Pulmonary hypertension, unspecified; K76.1 Chronic passive congestion of liver; N40.1 Benign prostatic hyperplasia with lower urinary tract symptoms; I48.91 Unspecified atrial fibrillation; E16.2 Hypoglycemia, unspecified; E87.5 Hyperkalemia; Y84.6 Urinary catheterization as the cause of abnormal reaction of the patient, or of later complication, without mention of misadventure at the time of the procedure; I72.3 Aneurysm of iliac artery; K44.9 Diaphragmatic hernia without obstruction or gangrene; I44.4 Left anterior fascicular block; Z91.14 Patient's other noncompliance with medication regimen; Z79.01 Long term (current) use of anticoagulants; Z79.899 Other long term (current) drug therapy; Z90.09 Acquired absence of other part of head and neck; Z87.891 Personal history of nicotine dependence
CPT/HCPCS: 36415; 36416; 36600; 51702; 71045; 74177; 76705; 80048; 80053; 80076; 80162; 81003; 81015; 82533; 82553; 82805; 83605; 83735; 83880; 84443; 84484; 85025; 85610; 85730; 87040; 87077; 87086; 87149; 87186; 93005; 93010; 93458; 93798; 93923; 93970; 94760; 96365; 96366; 96367; 96375; 99152; 99153; J0692; J0696; J1160; J1644; J1940; J2001; J2250; J3010; J3370; J3490; J7050; J7070; Q9967; U0002

== ENCOUNTER 2022-02-18 08:33 | Inpatient (IN) | payer MEDICARE, OTHER ==
[2022-02-18 09:17] LABS: #Lymphocytes 0.5 thou/uL (1.20-3.40); #Monocytes 0.7 thou/uL (0.11-0.59); #Neutrophils 12.7 thou/uL (1.40-6.50); %Basophils 0.1 % (0.0-1.0); %Eosinophils 0.1 % (0.0-10.0); %Lymphocytes 3.7 % (21.0-51.0); %Monocytes 4.9 % (0.0-10.0); %Neutrophils 91.1 % (42.0-75.0); Hemoglobin 14.7 g/dL (14.0-18.0); Mean Corpuscular HGB CONC 30.6 g/dL (32.0-36.0); Mean Corpuscular Hemoglobin 32.8 pg (27.0-31.0); Mean Platelet Volume 8.2 fL (7.4-10.4); Platelet Count 194 thou/uL (130-400); RBC Distribution Width 18.3 % (11.5-14.5); Red Blood Cell (RBC) Count 4.48 mill/uL (4.70-6.10)
[2022-02-18 09:36] LABS: ALT (SGPT) 20 U/L (8-55); AST (SGOT) 50 U/L (5-34); Albumin 4.2 g/dL (3.4-4.8); Alkaline Phosphatase 269 U/L (40-110); Anion Gap 28 mmol/L (10-20); BUN (Urea Nitrogen) 26 mg/dL (8.4-25.7); Bilirubin, Total 3.3 mg/dL (0.2-1.2); Calc. Creatinine Clearance 0 mL/min (70-130); Calcium 10.4 mg/dL (7.8-10.44); Carbon Dioxide 16 mmol/L (23-31); Chloride 102 mmol/L (98-107); Globulin 4.1 g/dL (2.4-3.5); Potassium 4.4 mmol/L (3.5-5.1); Protein, Total 8.3 g/dL (5.8-8.1); Sodium 142 mmol/L (136-145)
[2022-02-18 09:39] LABS: Bacteria/HPF 4+ HPF (None Seen); Bilirubin Negative (Negative); Blood, Urine 2+ (Negative); Clarity Turbid (Clear); Glucose, Urine (Dipstick) Normal (Negative); Ketone, Urine Trace mg/dL (Negative); Leukocyte 500 Leu/uL (Negative); Nitrite Negative (Negative); Protein, Urine (Dipstick) 200 mg/dL (Neg-Trace); RBC/HPF 21-50 HPF (0-3); WBC/HPF Greater than 50 HPF (0-3); pH, Urine 5.5 (5.0-9.0)
[2022-02-18 09:40] LABS: Glucose 43 mg/dL (83-110)
[2022-02-18 09:42] LABS: Hypochromia SLIGHT = 6-15 cells (100X) (0-5/hpf); MDiff Complete? YES; Macrocytosis MODERATE=16-30 cells (100X) (0-5/hpf); Ovalocytes SLIGHT = 2-5 cells (100X) (0-1/hpf); Platelet Morphology Comment Appears Adequate; Polychromasia SLIGHT = 2-3 cells (100X) (0-2/hpf)
[2022-02-18] MEDS ORDERED: Ondansetron ODT 4 MG TAB ONE (10:13)
[2022-02-18] MEDS ORDERED: Ondansetron PF 4 MG/2 ML Vial ONE (10:52)
[2022-02-18] MEDS ORDERED: Acetaminophen 650 MG Suppository PR PRN (12:53)
[2022-02-18] MEDS ORDERED: Ondansetron PF 4 MG/2 ML Vial IVP PRN (12:53)
[2022-02-18] MEDS ORDERED: Ondansetron ODT 4 MG TAB PO PRN (12:53)
[2022-02-18] MEDS ORDERED: Sodium Chloride 0.9% 1,000 ML IV SCH ×2 (13:00)
[2022-02-18] MEDS ORDERED: Dextrose 5 %-0.45 % NaCl 1,000 ML IV SCH ×2 (13:00)
[2022-02-18 14:26] LABS: Lactic Acid 8.1 mmol/L (0.5-2.2)
[2022-02-18 14:27] LABS: Alcohol Less than 10 mg/dL (Less than 10); Salicylate Less than 8.0 mg/dL (15.0-30.0)
[2022-02-18 15:19] LABS: #Lymphocytes 0.9 thou/uL (1.20-3.40); #Monocytes 0.7 thou/uL (0.11-0.59); #Neutrophils 11.9 thou/uL (1.40-6.50); %Basophils 0.1 % (0.0-1.0); %Eosinophils 0.2 % (0.0-10.0); %Lymphocytes 6.3 % (21.0-51.0); %Monocytes 5.1 % (0.0-10.0); %Neutrophils 88.4 % (42.0-75.0); Hemoglobin 14.7 g/dL (14.0-18.0); Mean Corpuscular HGB CONC 31.5 g/dL (32.0-36.0); Mean Corpuscular Hemoglobin 33.2 pg (27.0-31.0); Mean Platelet Volume 8.5 fL (7.4-10.4); Platelet Count 149 thou/uL (130-400); RBC Distribution Width 18.5 % (11.5-14.5); Red Blood Cell (RBC) Count 4.44 mill/uL (4.70-6.10); White Blood Cell (WBC) Count 13.5 thou/uL (4.8-10.8)
[2022-02-18 15:22] LABS: Actual Bicarbonate (HCO3v) 22 mEq/L (22-28); Base Excess -2.6 mEq/L (-2.0 to +3.0); Chloride (VBG) 103 mmol/L (98-106); Potassium (VBG) 4.44 mmol/L (3.70-5.30); Sodium 140.4 mmol/L (133-146); pH (venous) 7.37 (7.32-7.43)
[2022-02-18 15:39] LABS: Anion Gap 21 mmol/L (10-20); BUN (Urea Nitrogen) 27 mg/dL (8.4-25.7); Calc. Creatinine Clearance 0 mL/min (70-130); Carbon Dioxide 14 mmol/L (23-31); Chloride 105 mmol/L (98-107); Glucose 143 mg/dL (83-110); Potassium 5.3 mmol/L (3.5-5.1); Sodium 135 mmol/L (136-145)
[2022-02-18 15:42] LABS: Lactic Acid 6.1 mmol/L (0.5-2.2)
[2022-02-18] MEDS ORDERED: Thiamine HCl 200 MG/2 ML VIAL SLOW IVP SCH (18:00)
[2022-02-18] MEDS: Carvedilol 6.25 MG TAB PO SCH (18:11)
[2022-02-18 18:39] VITALS: BMI 24.5
[2022-02-18] MEDS: Famotidine 20 MG TAB PO SCH (20:51)
[2022-02-18] MEDS: Acetaminophen 325 MG TAB PO PRN (20:51)
[2022-02-18] MEDS: Apixaban 2.5 MG TAB PO SCH (20:54)
[2022-02-19] MEDS ORDERED: Sodium Chloride 0.9% 1,000 ML IV SCH (02:00)
[2022-02-19 06:30] LABS: #Lymphocytes 0.9 thou/uL (1.20-3.40); #Monocytes 0.8 thou/uL (0.11-0.59); #Neutrophils 9.9 thou/uL (1.40-6.50); %Eosinophils 0.1 % (0.0-10.0); %Lymphocytes 7.6 % (21.0-51.0); %Monocytes 6.9 % (0.0-10.0); %Neutrophils 85.4 % (42.0-75.0); Hemoglobin 13.8 g/dL (14.0-18.0); Mean Corpuscular HGB CONC 31.1 g/dL (32.0-36.0); Mean Corpuscular Hemoglobin 33.1 pg (27.0-31.0); Mean Platelet Volume 7.8 fL (7.4-10.4); Platelet Count 202 thou/uL (130-400); RBC Distribution Width 18.5 % (11.5-14.5); Red Blood Cell (RBC) Count 4.18 mill/uL (4.70-6.10); White Blood Cell (WBC) Count 11.6 thou/uL (4.8-10.8)
[2022-02-19 07:00] LABS: Anion Gap 12 mmol/L (10-20); BUN (Urea Nitrogen) 32 mg/dL (8.4-25.7); Calc. Creatinine Clearance 60 mL/min (70-130); Calcium 8.9 mg/dL (7.8-10.44); Carbon Dioxide 22 mmol/L (23-31); Chloride 104 mmol/L (98-107); Glucose 134 mg/dL (83-110); Potassium 4.4 mmol/L (3.5-5.1); Sodium 134 mmol/L (136-145)
[2022-02-19] MEDS: Carvedilol 6.25 MG TAB PO SCH ×2 (08:25→16:51)
[2022-02-19] MEDS: Cyanocobalamin (Vitamin B-12) 1,000 MCG TAB PO SCH (08:25)
[2022-02-19] MEDS: Famotidine 20 MG TAB PO SCH ×2 (08:25→20:37)
[2022-02-19] MEDS: Apixaban 2.5 MG TAB PO SCH ×2 (08:26→20:37)
[2022-02-19] MEDS: Folic Acid 1 MG TAB PO SCH (08:26)
[2022-02-19 09:12] LABS: Lactic Acid 1.4 mmol/L (0.5-2.2)
[2022-02-19] MEDS: Amiodarone 200 MG TAB PO SCH (20:36)
[2022-02-19] MEDS: Potassium Chloride 20 MEQ TAB PO SCH (20:37)
[2022-02-19] MEDS ORDERED: Carvedilol 3.125 MG TAB PO SCH (21:00)
[2022-02-20 06:31] LABS: #Eosinphils 0.1 thou/uL (0.0-0.7); #Lymphocytes 1.1 thou/uL (1.20-3.40); #Monocytes 0.6 thou/uL (0.11-0.59); #Neutrophils 6.4 thou/uL (1.40-6.50); %Basophils 0.3 % (0.0-1.0); %Eosinophils 0.9 % (0.0-10.0); %Lymphocytes 13.7 % (21.0-51.0); %Monocytes 7.2 % (0.0-10.0); %Neutrophils 77.9 % (42.0-75.0); Hemoglobin 14.5 g/dL (14.0-18.0); Mean Corpuscular HGB CONC 30.1 g/dL (32.0-36.0); Mean Corpuscular Hemoglobin 32.2 pg (27.0-31.0); Mean Platelet Volume 7.9 fL (7.4-10.4); Platelet Count 209 thou/uL (130-400); RBC Distribution Width 18.5 % (11.5-14.5); Red Blood Cell (RBC) Count 4.51 mill/uL (4.70-6.10); White Blood Cell (WBC) Count 8.3 thou/uL (4.8-10.8)
[2022-02-20 06:45] LABS: Anion Gap 12 mmol/L (10-20); BUN (Urea Nitrogen) 34 mg/dL (8.4-25.7); Calc. Creatinine Clearance 62 mL/min (70-130); Calcium 9.1 mg/dL (7.8-10.44); Carbon Dioxide 25 mmol/L (23-31); Chloride 101 mmol/L (98-107); Glucose 128 mg/dL (83-110); Potassium 4.4 mmol/L (3.5-5.1); Sodium 134 mmol/L (136-145)
[2022-02-20] MEDS: Cyanocobalamin (Vitamin B-12) 1,000 MCG TAB PO SCH (09:39)
[2022-02-20] MEDS: Amiodarone 200 MG TAB PO SCH ×2 (09:39→20:46)
[2022-02-20] MEDS: Famotidine 20 MG TAB PO SCH ×2 (09:39→20:47)
[2022-02-20] MEDS: Furosemide 40 MG TAB PO SCH (09:39)
[2022-02-20] MEDS: Folic Acid 1 MG TAB PO SCH (09:39)
[2022-02-20] MEDS: Potassium Chloride 20 MEQ TAB PO SCH ×2 (09:39→20:47)
[2022-02-20] MEDS: Carvedilol 6.25 MG TAB PO SCH ×2 (09:39→16:27)
[2022-02-20] MEDS: Apixaban 2.5 MG TAB PO SCH ×2 (09:45→20:47)
[2022-02-20] MEDS: cefTRIAXone\\ROCEPHIN 1 GM in Sodium Chloride 0.9% 100 ML IVPB SCH ×2 (16:36→16:55)
[2022-02-21 06:11] LABS: #Eosinphils 0.1 thou/uL (0.0-0.7); #Lymphocytes 0.8 thou/uL (1.20-3.40); #Monocytes 0.4 thou/uL (0.11-0.59); #Neutrophils 4.5 thou/uL (1.40-6.50); %Basophils 0.6 % (0.0-1.0); %Eosinophils 1.8 % (0.0-10.0); %Lymphocytes 14.2 % (21.0-51.0); %Monocytes 6.6 % (0.0-10.0); %Neutrophils 76.9 % (42.0-75.0); Hemoglobin 13.8 g/dL (14.0-18.0); Mean Corpuscular HGB CONC 30.4 g/dL (32.0-36.0); Mean Corpuscular Hemoglobin 32.4 pg (27.0-31.0); Platelet Count 210 thou/uL (130-400); RBC Distribution Width 18.1 % (11.5-14.5); Red Blood Cell (RBC) Count 4.26 mill/uL (4.70-6.10); White Blood Cell (WBC) Count 5.8 thou/uL (4.8-10.8)
[2022-02-21 06:40] LABS: Anion Gap 12 mmol/L (10-20); BUN (Urea Nitrogen) 39 mg/dL (8.4-25.7); Calc. Creatinine Clearance 55 mL/min (70-130); Calcium 9.1 mg/dL (7.8-10.44); Carbon Dioxide 28 mmol/L (23-31); Chloride 100 mmol/L (98-107); Glucose 145 mg/dL (83-110); Potassium 4.4 mmol/L (3.5-5.1); Sodium 136 mmol/L (136-145)
[2022-02-21] MEDS: Nitrofurantoin Monohyd/M-Cryst 100 MG CAP PO SCH ×2 (08:48→20:46)
[2022-02-21] MEDS: Apixaban 2.5 MG TAB PO SCH ×2 (08:49→20:47)
[2022-02-21] MEDS: Furosemide 40 MG TAB PO SCH (08:49)
[2022-02-21] MEDS: Cyanocobalamin (Vitamin B-12) 1,000 MCG TAB PO SCH (08:50)
[2022-02-21] MEDS: Famotidine 20 MG TAB PO SCH ×2 (08:50→20:46)
[2022-02-21] MEDS: Folic Acid 1 MG TAB PO SCH (08:50)
[2022-02-21] MEDS: Amiodarone 200 MG TAB PO SCH ×2 (08:50→20:47)
[2022-02-21] MEDS: Potassium Chloride 20 MEQ TAB PO SCH ×2 (08:51→20:49)
[2022-02-21] MEDS: Carvedilol 6.25 MG TAB PO SCH ×2 (08:52→18:49)
[2022-02-21] MEDS: cefTRIAXone\\ROCEPHIN 1 GM in Sodium Chloride 0.9% 100 ML IVPB SCH (16:44)
[2022-02-21] MEDS: Acetaminophen 325 MG TAB PO PRN (20:51)
[2022-02-21 21:29] VITALS: BP 100/66; TEMP 97.6
[2022-02-22] MEDS: Acetaminophen 325 MG TAB PO PRN (02:52)
== END 2022-02-22 07:55 | disposition home health service (06) | DRG 699 ==
LOC: ERS 08:33 → T4-B 10:46 → OBSVTOIN 02-20 10:36
PROVIDERS: ADMIT Internal Medicine; ATTEND Internal Medicine
DX: T83.511A Infection and inflammatory reaction due to indwelling urethral catheter, initial encounter (principal); T67.01XA Heatstroke and sunstroke, initial encounter; Z20.822 Contact with and (suspected) exposure to COVID-19; N13.8 Other obstructive and reflux uropathy; N17.9 Acute kidney failure, unspecified; E87.2 Acidosis; I50.22 Chronic systolic (congestive) heart failure; I48.92 Unspecified atrial flutter; I42.9 Cardiomyopathy, unspecified; N39.0 Urinary tract infection, site not specified; E16.2 Hypoglycemia, unspecified; Y84.6 Urinary catheterization as the cause of abnormal reaction of the patient, or of later complication, without mention of misadventure at the time of the procedure; N40.1 Benign prostatic hyperplasia with lower urinary tract symptoms; R33.8 Other retention of urine; F17.210 Nicotine dependence, cigarettes, uncomplicated; N18.1 Chronic kidney disease, stage 1; Z53.20 Procedure and treatment not carried out because of patient's decision for unspecified reasons; B96.20 Unspecified Escherichia coli [E. coli] as the cause of diseases classified elsewhere; B96.1 Klebsiella pneumoniae [K. pneumoniae] as the cause of diseases classified elsewhere; Z91.19 Patient's noncompliance with other medical treatment and regimen; Z79.899 Other long term (current) drug therapy; Z90.89 Acquired absence of other organs; X30.XXXA Exposure to excessive natural heat, initial encounter; Z79.01 Long term (current) use of anticoagulants; Z71.6 Tobacco abuse counseling
CPT/HCPCS: 36415; 36416; 51702; 51798; 71045; 80048; 80053; 80179; 80307; 81003; 81015; 82550; 82607; 82746; 82805; 83605; 83615; 83880; 85025; 87077; 87086; 87186; 96374; 96375; G0378; J0696; J1956; J2405; J3411; J3490; Q0162; U0003; U0005

== ENCOUNTER 2022-03-12 10:12 | Inpatient (IN) | payer OTHER ==
[2022-03-12 11:09] LABS: #Lymphocytes 0.7 thou/uL (1.20-3.40); #Monocytes 0.3 thou/uL (0.11-0.59); #Neutrophils 2.1 thou/uL (1.40-6.50); %Basophils 1.3 % (0.0-1.0); %Eosinophils 0.8 % (0.0-10.0); %Neutrophils 66.8 % (42.0-75.0); Hemoglobin 13.8 g/dL (14.0-18.0); Mean Corpuscular HGB CONC 31.2 g/dL (32.0-36.0); Mean Corpuscular Hemoglobin 33.8 pg (27.0-31.0); Mean Platelet Volume 8.1 fL (7.4-10.4); Platelet Count 234 thou/uL (130-400); RBC Distribution Width 17.7 % (11.5-14.5); Red Blood Cell (RBC) Count 4.07 mill/uL (4.70-6.10); White Blood Cell (WBC) Count 3.2 thou/uL (4.8-10.8)
[2022-03-12 11:27] LABS: INR-International Normal Ratio 2.3; PTT 41.5 sec (22.9-36.1); Prothrombin Time 25.5 sec (12.0-14.7)
[2022-03-12 11:29] LABS: ALT (SGPT) 21 U/L (8-55); AST (SGOT) 48 U/L (5-34); Albumin 3.4 g/dL (3.4-4.8); Alkaline Phosphatase 224 U/L (40-110); Anion Gap 17 mmol/L (10-20); BUN (Urea Nitrogen) 32 mg/dL (8.4-25.7); Bilirubin, Total 4.3 mg/dL (0.2-1.2); CK (CPK) 403 U/L (30-200); Calc. Creatinine Clearance 0 mL/min (70-130); Calcium 9.2 mg/dL (7.8-10.44); Carbon Dioxide 19 mmol/L (23-31); Chloride 103 mmol/L (98-107); Estimated GFR 92; Globulin 3.3 g/dL (2.4-3.5); Magnesium 1.9 mg/dL (1.6-2.6); Potassium 4.3 mmol/L (3.5-5.1); Protein, Total 6.7 g/dL (5.8-8.1); Sodium 135 mmol/L (136-145)
[2022-03-12 11:35] LABS: D-Dimer Test 5.09 *mcg/mL (0.27-0.43)
[2022-03-12 11:36] LABS: Glucose 58 mg/dL (83-110)
[2022-03-12 11:54] LABS: CKMB 15.9 ng/mL (0-6.6)
[2022-03-12] MEDS ORDERED: Acetaminophen 325 MG TAB PO PRN (13:39)
[2022-03-12] MEDS ORDERED: Sodium Chloride 0.9% 1,000 ML IV SCH (13:45)
[2022-03-12] MEDS ORDERED: Ondansetron ODT 4 MG TAB PO PRN (13:46)
[2022-03-12] MEDS ORDERED: Ondansetron PF 4 MG/2 ML Vial IVP PRN (13:46)
[2022-03-12 14:37] LABS: Troponin I 0.059 ng/mL (< 0.028)
[2022-03-12 14:50] LABS: Ferritin 137.91 ng/mL (22-322); Free T4 (Free Thyroxine) 0.88 ng/dL (0.70-1.48)
[2022-03-12 14:57] LABS: Iron 55 ug/dL (65-175); Iron Binding Capacity, Total 301 mcg/dL (261-462)
[2022-03-12] MEDS ORDERED: Iopamidol-370 76% 500 ML 1 ML ONE (15:34)
[2022-03-12 17:04] LABS: Bacteria/HPF 1+ HPF (None Seen); Bilirubin Negative (Negative); Blood, Urine Trace (Negative); Clarity Clear (Clear); Glucose, Urine (Dipstick) Normal (Negative); Ketone, Urine Negative (Negative); Leukocyte 500 Leu/uL (Negative); Nitrite Negative (Negative); Protein, Urine (Dipstick) 30 mg/dL (Neg-Trace); Specific Gravity, Urine 1.043 (1.002-1.036); Squamous Epithelial None Seen HPF (0-3); Urobilinogen 3 mg/dL (Less than 2); WBC/HPF Greater than 50 HPF (0-3); pH, Urine 5.5 (5.0-9.0)
[2022-03-12 17:08] LABS: Troponin I 0.049 ng/mL (< 0.028)
[2022-03-12] MEDS ORDERED: Carvedilol 6.25 MG TAB PO SCH (19:00)
[2022-03-12] MEDS: Amiodarone 200 MG TAB PO SCH (19:22)
[2022-03-12] MEDS: Potassium Chloride 20 MEQ TAB PO SCH (19:23)
[2022-03-12] MEDS: Apixaban 2.5 MG TAB PO SCH (19:23)
[2022-03-13 04:08] LABS: #Eosinphils 0.1 thou/uL (0.0-0.7); #Lymphocytes 0.8 thou/uL (1.20-3.40); #Monocytes 0.3 thou/uL (0.11-0.59); %Basophils 0.2 % (0.0-1.0); %Eosinophils 2.8 % (0.0-10.0); %Lymphocytes 25.5 % (21.0-51.0); %Monocytes 9.8 % (0.0-10.0); %Neutrophils 61.7 % (42.0-75.0); Mean Corpuscular HGB CONC 31.9 g/dL (32.0-36.0); Mean Platelet Volume 7.8 fL (7.4-10.4); Platelet Count 218 thou/uL (130-400); RBC Distribution Width 17.6 % (11.5-14.5); Red Blood Cell (RBC) Count 4.01 mill/uL (4.70-6.10); White Blood Cell (WBC) Count 3.3 thou/uL (4.8-10.8)
[2022-03-13 04:29] LABS: ALT (SGPT) 19 U/L (8-55); AST (SGOT) 42 U/L (5-34); Albumin 3.1 g/dL (3.4-4.8); Alkaline Phosphatase 215 U/L (40-110); Anion Gap 12 mmol/L (10-20); BUN (Urea Nitrogen) 26 mg/dL (8.4-25.7); Bilirubin, Total 2.5 mg/dL (0.2-1.2); Calc. Creatinine Clearance 83 mL/min (70-130); Calcium 8.8 mg/dL (7.8-10.44); Carbon Dioxide 24 mmol/L (23-31); Chloride 106 mmol/L (98-107); Estimated GFR 94; Globulin 3.1 g/dL (2.4-3.5); Glucose 98 mg/dL (83-110); Potassium 4.7 mmol/L (3.5-5.1); Protein, Total 6.2 g/dL (5.8-8.1); Sodium 137 mmol/L (136-145)
[2022-03-13] MEDS ORDERED: Furosemide 40 MG TAB PO SCH (07:30)
[2022-03-13] MEDS: Cyanocobalamin (Vitamin B-12) 1,000 MCG TAB PO SCH (09:43)
[2022-03-13] MEDS: Potassium Chloride 20 MEQ TAB PO SCH ×2 (09:43→20:32)
[2022-03-13] MEDS: Apixaban 2.5 MG TAB PO SCH ×2 (09:44→20:32)
[2022-03-13] MEDS: Amiodarone 200 MG TAB PO SCH (09:44)
[2022-03-13] MEDS: Carvedilol 6.25 MG TAB PO SCH ×2 (09:44→17:53)
[2022-03-13 14:45] VITALS: BMI 23.1
[2022-03-13] MEDS: Furosemide 40 MG TAB PO SCH (15:38)
[2022-03-14 03:59] LABS: #Eosinphils 0.2 thou/uL (0.0-0.7); #Lymphocytes 0.7 thou/uL (1.20-3.40); #Monocytes 0.3 thou/uL (0.11-0.59); #Neutrophils 2.8 thou/uL (1.40-6.50); %Basophils 0.6 % (0.0-1.0); %Eosinophils 3.9 % (0.0-10.0); %Lymphocytes 18.5 % (21.0-51.0); %Monocytes 7.7 % (0.0-10.0); %Neutrophils 69.3 % (42.0-75.0); Mean Corpuscular HGB CONC 31.2 g/dL (32.0-36.0); Mean Corpuscular Hemoglobin 34.2 pg (27.0-31.0); Mean Platelet Volume 7.6 fL (7.4-10.4); Platelet Count 258 thou/uL (130-400); RBC Distribution Width 17.9 % (11.5-14.5); Red Blood Cell (RBC) Count 4.38 mill/uL (4.70-6.10)
[2022-03-14 04:19] LABS: Anion Gap 13 mmol/L (10-20); BUN (Urea Nitrogen) 27 mg/dL (8.4-25.7); Calc. Creatinine Clearance 77 mL/min (70-130); Calcium 8.5 mg/dL (7.8-10.44); Carbon Dioxide 30 mmol/L (23-31); Chloride 100 mmol/L (98-107); Estimated GFR 93; Glucose 93 mg/dL (83-110); Magnesium 1.5 mg/dL (1.6-2.6); Potassium 4.3 mmol/L (3.5-5.1); Sodium 139 mmol/L (136-145)
[2022-03-14] MEDS: Potassium Chloride 20 MEQ TAB PO SCH ×2 (09:55→20:21)
[2022-03-14] MEDS: Ferrous Sulfate 325 MG TAB PO SCH (09:55)
[2022-03-14] MEDS: Furosemide 40 MG TAB PO SCH ×2 (09:55→16:59)
[2022-03-14] MEDS: Carvedilol 6.25 MG TAB PO SCH ×2 (09:55→16:59)
[2022-03-14] MEDS: Cyanocobalamin (Vitamin B-12) 1,000 MCG TAB PO SCH (09:56)
[2022-03-14] MEDS: Apixaban 2.5 MG TAB PO SCH ×2 (09:56→20:21)
[2022-03-14] MEDS: Amiodarone 200 MG TAB PO SCH (09:56)
[2022-03-15] MEDS: Amiodarone 200 MG TAB PO SCH (10:14)
[2022-03-15] MEDS: Cyanocobalamin (Vitamin B-12) 1,000 MCG TAB PO SCH (10:14)
[2022-03-15] MEDS: Potassium Chloride 20 MEQ TAB PO SCH ×2 (10:14→20:58)
[2022-03-15] MEDS: Ferrous Sulfate 325 MG TAB PO SCH (10:14)
[2022-03-15] MEDS: Furosemide 40 MG TAB PO SCH ×2 (10:14→15:43)
[2022-03-15] MEDS: Apixaban 2.5 MG TAB PO SCH ×2 (10:14→20:58)
[2022-03-15] MEDS: Carvedilol 6.25 MG TAB PO SCH ×2 (10:17→17:38)
[2022-03-16 08:20] VITALS: BP 95/63; TEMP 97.8
[2022-03-16] MEDS: Carvedilol 6.25 MG TAB PO SCH (09:00)
[2022-03-16] MEDS: Potassium Chloride 20 MEQ TAB PO SCH (09:01)
[2022-03-16] MEDS: Apixaban 2.5 MG TAB PO SCH (09:01)
[2022-03-16] MEDS: Furosemide 40 MG TAB PO SCH (09:02)
[2022-03-16] MEDS: Ferrous Sulfate 325 MG TAB PO SCH (09:02)
[2022-03-16] MEDS: Cyanocobalamin (Vitamin B-12) 1,000 MCG TAB PO SCH (09:02)
[2022-03-16] MEDS: Amiodarone 200 MG TAB PO SCH (09:03)
== END 2022-03-16 10:00 | disposition home or self-care (01) | DRG 291 ==
LOC: ERS 10:12 → ERHOLD 12:39 → 2NO 15:52
PROVIDERS: ADMIT Internal Medicine; ATTEND Internal Medicine
DX: I13.0 Hypertensive heart and chronic kidney disease with heart failure and stage 1 through stage 4 chronic kidney disease, or unspecified chronic kidney disease (principal); I50.23 Acute on chronic systolic (congestive) heart failure; E43 Unspecified severe protein-calorie malnutrition; R64 Cachexia; N13.8 Other obstructive and reflux uropathy; I48.92 Unspecified atrial flutter; I48.0 Paroxysmal atrial fibrillation; Z20.822 Contact with and (suspected) exposure to COVID-19; I42.8 Other cardiomyopathies; N18.9 Chronic kidney disease, unspecified; F17.210 Nicotine dependence, cigarettes, uncomplicated; I45.10 Unspecified right bundle-branch block; D63.1 Anemia in chronic kidney disease; N40.1 Benign prostatic hyperplasia with lower urinary tract symptoms; R77.8 Other specified abnormalities of plasma proteins; D50.9 Iron deficiency anemia, unspecified; R82.71 Bacteriuria; I25.10 Atherosclerotic heart disease of native coronary artery without angina pectoris; F10.10 Alcohol abuse, uncomplicated; Z91.14 Patient's other noncompliance with medication regimen; Z28.21 Immunization not carried out because of patient refusal; Z90.89 Acquired absence of other organs; Z79.01 Long term (current) use of anticoagulants; Z79.899 Other long term (current) drug therapy; Z90.49 Acquired absence of other specified parts of digestive tract; Z68.21 Body mass index [BMI] 21.0-21.9, adult; Z87.440 Personal history of urinary (tract) infections
CPT/HCPCS: 36415; 71045; 71275; 80048; 80053; 81001; 82550; 82553; 82607; 82728; 82746; 83540; 83550; 83735; 83880; 84100; 84439; 84443; 84484; 85025; 85379; 85610; 85730; 87086; 93005; 93010; 94760; J2405; J7050; Q0162; Q9967; U0003; U0005

== ENCOUNTER 2022-03-28 00:54 | Inpatient (IN) | payer OTHER ==
[2022-03-28 02:46] LABS: #Lymphocytes 0.8 thou/uL (1.20-3.40); #Monocytes 0.5 thou/uL (0.11-0.59); %Basophils 0.1 % (0.0-1.0); %Eosinophils 0.1 % (0.0-10.0); %Lymphocytes 11.3 % (21.0-51.0); %Monocytes 6.4 % (0.0-10.0); %Neutrophils 82.1 % (42.0-75.0); Hemoglobin 14.6 g/dL (14.0-18.0); Mean Corpuscular HGB CONC 31.8 g/dL (32.0-36.0); Mean Corpuscular Hemoglobin 34.4 pg (27.0-31.0); Mean Platelet Volume 8.3 fL (7.4-10.4); Platelet Count 144 thou/uL (130-400); RBC Distribution Width 16.1 % (11.5-14.5); Red Blood Cell (RBC) Count 4.24 mill/uL (4.70-6.10); White Blood Cell (WBC) Count 7.4 thou/uL (4.8-10.8)
[2022-03-28 03:02] LABS: ALT (SGPT) 50 U/L (8-55); AST (SGOT) 98 U/L (5-34); Albumin 3.8 g/dL (3.4-4.8); Alkaline Phosphatase 290 U/L (40-110); Anion Gap 19 mmol/L (10-20); BUN (Urea Nitrogen) 23 mg/dL (8.4-25.7); Bilirubin, Total 1.9 mg/dL (0.2-1.2); Calc. Creatinine Clearance 0 mL/min (70-130); Calcium 8.9 mg/dL (7.8-10.44); Carbon Dioxide 21 mmol/L (23-31); Chloride 106 mmol/L (98-107); Estimated GFR 92; Globulin 3.7 g/dL (2.4-3.5); Glucose 100 mg/dL (83-110); Protein, Total 7.5 g/dL (5.8-8.1); Sodium 141 mmol/L (136-145)
[2022-03-28 03:27] LABS: CKMB 4.3 ng/mL (0-6.6)
[2022-03-28] MEDS ORDERED: Diltiazem 125 MG/25 ML ONE ×3 (03:38→03:41)
[2022-03-28 05:32] LABS: Magnesium 1.8 mg/dL (1.6-2.6)
[2022-03-28 05:36] LABS: Troponin I 0.249 ng/mL (< 0.028)
[2022-03-28 08:18] LABS: Troponin I 0.259 ng/mL (< 0.028)
[2022-03-28] MEDS ORDERED: Ondansetron ODT 4 MG TAB PO PRN (08:37)
[2022-03-28] MEDS ORDERED: Ondansetron PF 4 MG/2 ML Vial IVP PRN (08:37)
[2022-03-28] MEDS ORDERED: Acetaminophen 325 MG TAB PO PRN (08:37)
[2022-03-28 09:25] LABS: Bilirubin Negative (Negative); Blood, Urine 2+ (Negative); Clarity Turbid (Clear); Glucose, Urine (Dipstick) Normal (Negative); Ketone, Urine Negative (Negative); Leukocyte 500 Leu/uL (Negative); Nitrite Negative (Negative); Protein, Urine (Dipstick) 100 mg/dL (Neg-Trace); Specific Gravity, Urine 1.021 (1.002-1.036); Squamous Epithelial 0-3 HPF (0-3); pH, Urine 6.5 (5.0-9.0)
[2022-03-28 09:34] LABS: Bacteria/HPF 2+ HPF (None Seen); WBC/HPF 21-50 HPF (0-3)
[2022-03-28] MEDS: Apixaban 2.5 MG TAB PO SCH (10:34)
[2022-03-28] MEDS ORDERED: Aspirin Chewable 81 MG TAB ONE (11:21)
[2022-03-28] MEDS: Aspirin Chewable 81 MG TAB PO SCH (11:51)
[2022-03-28] MEDS: Cyanocobalamin (Vitamin B-12) 1,000 MCG TAB PO SCH (11:52)
[2022-03-28 16:07] VITALS: BMI 24.3
[2022-03-28] MEDS: Furosemide 40 MG/4 ML VIAL SLOW IVP SCH (17:10)
[2022-03-28] MEDS: Carvedilol 6.25 MG TAB PO SCH (17:10)
[2022-03-28 18:22] LABS: SARS-CoV-2 NAA Rapid Test Not Detected (NotDetected)
[2022-03-29 04:41] LABS: #Eosinphils 0.1 thou/uL (0.0-0.7); #Monocytes 0.5 thou/uL (0.11-0.59); #Neutrophils 4.1 thou/uL (1.40-6.50); %Eosinophils 1.2 % (0.0-10.0); %Lymphocytes 17.1 % (21.0-51.0); %Monocytes 9.6 % (0.0-10.0); %Neutrophils 72.1 % (42.0-75.0); Mean Corpuscular HGB CONC 32.5 g/dL (32.0-36.0); Mean Corpuscular Hemoglobin 34.6 pg (27.0-31.0); Mean Platelet Volume 7.9 fL (7.4-10.4); Platelet Count 137 thou/uL (130-400); RBC Distribution Width 15.7 % (11.5-14.5); Red Blood Cell (RBC) Count 3.76 mill/uL (4.70-6.10); White Blood Cell (WBC) Count 5.6 thou/uL (4.8-10.8)
[2022-03-29 05:12] LABS: ALT (SGPT) 35 U/L (8-55); AST (SGOT) 60 U/L (5-34); Albumin 3.2 g/dL (3.4-4.8); Alkaline Phosphatase 234 U/L (40-110); Anion Gap 13 mmol/L (10-20); BUN (Urea Nitrogen) 19 mg/dL (8.4-25.7); Bilirubin, Direct 0.7 mg/dL (0.1-0.3); Bilirubin, Total 1.3 mg/dL (0.2-1.2); Calc. Creatinine Clearance 91 mL/min (70-130); Calcium 8.6 mg/dL (7.8-10.44); Carbon Dioxide 24 mmol/L (23-31); Chloride 104 mmol/L (98-107); Estimated GFR 95; Glucose 99 mg/dL (83-110); Potassium 3.8 mmol/L (3.5-5.1); Protein, Total 6.7 g/dL (5.8-8.1); Sodium 137 mmol/L (136-145)
[2022-03-29] MEDS: Furosemide 40 MG/4 ML VIAL SLOW IVP SCH (05:47)
[2022-03-29] MEDS ORDERED: Amiodarone 200 MG TAB PO SCH (09:00)
[2022-03-29] MEDS: Ferrous Sulfate 325 MG TAB PO SCH ×2 (09:24→09:33)
[2022-03-29] MEDS: Aspirin Chewable 81 MG TAB PO SCH (09:24)
[2022-03-29] MEDS: Cyanocobalamin (Vitamin B-12) 1,000 MCG TAB PO SCH (09:25)
[2022-03-29] MEDS: Furosemide 40 MG TAB PO SCH ×3 (09:25→14:36)
[2022-03-29] MEDS: Carvedilol 6.25 MG TAB PO SCH (09:26)
[2022-03-29] MEDS: Apixaban 2.5 MG TAB PO SCH (09:33)
[2022-03-29 12:22] VITALS: BP 97/64; TEMP 97.9
== END 2022-03-29 15:15 | disposition home or self-care (01) | DRG 281 ==
LOC: ERS 00:54 → ERHOLD 04:39 → 2NO 05:58
PROVIDERS: ADMIT Internal Medicine; ATTEND Internal Medicine
DX: I48.19 Other persistent atrial fibrillation (principal); I21.A1 Myocardial infarction type 2; I50.42 Chronic combined systolic (congestive) and diastolic (congestive) heart failure; I13.0 Hypertensive heart and chronic kidney disease with heart failure and stage 1 through stage 4 chronic kidney disease, or unspecified chronic kidney disease; Z20.822 Contact with and (suspected) exposure to COVID-19; N40.1 Benign prostatic hyperplasia with lower urinary tract symptoms; R33.8 Other retention of urine; I25.10 Atherosclerotic heart disease of native coronary artery without angina pectoris; K42.9 Umbilical hernia without obstruction or gangrene; N18.30 Chronic kidney disease, stage 3 unspecified; R31.9 Hematuria, unspecified; Z91.14 Patient's other noncompliance with medication regimen; Z79.899 Other long term (current) drug therapy; Z90.89 Acquired absence of other organs; Z87.891 Personal history of nicotine dependence
CPT/HCPCS: 36415; 71045; 80048; 80053; 81003; 81015; 82553; 83735; 83880; 84484; 85025; 93005; 97139; J1940; U0002

== ENCOUNTER 2022-05-03 10:41 | Outpatient (CLI) | payer OTHER | END 2022-05-03 10:42 | disposition home or self-care (01) | LOC: SCSRAD 10:41 | PROVIDERS: ATTEND Family Medicine | DX: I50.20 Unspecified systolic (congestive) heart failure (principal); I51.7 Cardiomegaly; J90 Pleural effusion, not elsewhere classified | CPT/HCPCS: 71046 ==

== ENCOUNTER 2022-05-18 11:33 | Outpatient (CLI) | payer MEDICARE | END 2022-05-18 11:34 | disposition home or self-care (01) | LOC: SCSRAD 11:33 | PROVIDERS: ATTEND Family Medicine | DX: I50.20 Unspecified systolic (congestive) heart failure (principal) | CPT/HCPCS: 71046 ==

== ENCOUNTER 2022-06-12 10:27 | Inpatient (IN) | payer MEDICARE, OTHER ==
[2022-06-12] MEDS ORDERED: Amiodarone 150 MG/3 ML VIAL ONE (10:31)
[2022-06-12] MEDS ORDERED: Magnesium 2 GM/50 ML BAG (IN WATER) ONE (10:31)
[2022-06-12] MEDS ORDERED: Midazolam HCl 5 mg/ml Vial ONE (10:33)
[2022-06-12 10:51] LABS: #Lymphocytes 0.8 thou/uL (1.20-3.40); #Monocytes 0.8 thou/uL (0.11-0.59); #Neutrophils 7.7 thou/uL (1.40-6.50); %Basophils 0.3 % (0.0-1.0); %Eosinophils 0.1 % (0.0-10.0); %Lymphocytes 8.8 % (21.0-51.0); %Monocytes 8.4 % (0.0-10.0); %Neutrophils 82.2 % (42.0-75.0); Mean Corpuscular HGB CONC 30.6 g/dL (32.0-36.0); Mean Corpuscular Hemoglobin 33.4 pg (27.0-31.0); Mean Platelet Volume 7.9 fL (7.4-10.4); Platelet Count 220 thou/uL (130-400); RBC Distribution Width 15.4 % (11.5-14.5); White Blood Cell (WBC) Count 9.4 thou/uL (4.8-10.8)
[2022-06-12 11:12] LABS: ALT (SGPT) 28 U/L (8-55); AST (SGOT) 72 U/L (5-34); Albumin 4.3 g/dL (3.4-4.8); Alkaline Phosphatase 237 U/L (40-110); Anion Gap 27 mmol/L (10-20); BUN (Urea Nitrogen) 50 mg/dL (8.4-25.7); Bilirubin, Total 4.2 mg/dL (0.2-1.2); Calc. Creatinine Clearance 0 mL/min (70-130); Calcium 10.3 mg/dL (7.8-10.44); Carbon Dioxide 12 mmol/L (23-31); Chloride 101 mmol/L (98-107); Estimated GFR 61; Globulin 4.1 g/dL (2.4-3.5); Glucose 61 mg/dL (83-110); Potassium 5.1 mmol/L (3.5-5.1); Protein, Total 8.4 g/dL (5.8-8.1); Sodium 135 mmol/L (136-145)
[2022-06-12 11:45] LABS: CKMB 54.7 ng/mL (0-6.6)
[2022-06-12] MEDS ORDERED: Aspirin 325 MG TAB ONE (12:08)
[2022-06-12] MEDS ORDERED: Iopamidol-370 76% 500 ML 1 ML ONE (12:08)
[2022-06-12] MEDS ORDERED: Enoxaparin Sodium 60 MG/0.6 ML SYRINGE ONE (12:09)
[2022-06-12] MEDS ORDERED: Electrolyte Replacement Protocol 1 EACH IVPB SCH (13:10)
[2022-06-12] MEDS ORDERED: Heparin 1,000 UNITS/ML VIAL ONE (13:38)
[2022-06-12] MEDS ORDERED: Furosemide 40 MG/4 ML VIAL ONE (14:20)
[2022-06-12 14:21] LABS: Anion Gap 30 mmol/L (10-20); BUN (Urea Nitrogen) 50 mg/dL (8.4-25.7); Calc. Creatinine Clearance 0 mL/min (70-130); Calcium 9.9 mg/dL (7.8-10.44); Chloride 102 mmol/L (98-107); Estimated GFR 60; Magnesium 2.5 mg/dL (1.6-2.6); Potassium 5.5 mmol/L (3.5-5.1); Sodium 134 mmol/L (136-145)
[2022-06-12 14:23] LABS: Carbon Dioxide 8 mmol/L (23-31); Glucose 30 mg/dL (83-110); Troponin I 2.072 ng/mL (< 0.028)
[2022-06-12] MEDS ORDERED: Amiodarone 450 MG, Admixture Fee 1 EACH in Dextrose 5% in Water 250 ML IVPB SCH (15:00)
[2022-06-12] MEDS ORDERED: Dextrose 50% Abboject 50 ML SYRINGE SLOW IVP PRN (15:17)
[2022-06-12] MEDS ORDERED: Dextrose 5% in Water 1,000 ML IV PRN (15:17)
[2022-06-12] MEDS ORDERED: Dextrose 50% Abboject 50 ML SYRINGE ONE (15:20)
[2022-06-12] MEDS ORDERED: Ondansetron PF 4 MG/2 ML Vial IVP PRN (15:56)
[2022-06-12] MEDS: Sodium Bicarbonate 150 MEQ in Dextrose 5% in Water 1,000 ML IV SCH (16:26)
[2022-06-12 16:54] LABS: Critical Call Chem Troponin I RESULT DECREASING; Troponin I 2.045 ng/mL (< 0.028)
[2022-06-12] MEDS: Carvedilol 3.125 MG TAB PO SCH (18:00)
[2022-06-12] MEDS ORDERED: Piperacillin/Tazobactam 3.375 GM in Sodium Chloride 0.9% 100 ML IVPB SCH (18:00)
[2022-06-12] MEDS ORDERED: Metoclopramide HCl 10 MG/2 ML VIAL IVP PRN (19:06)
[2022-06-12] MEDS ORDERED: Enoxaparin Sodium 60 MG/0.6 ML SYRINGE SC SCH (23:59)
[2022-06-13] MEDS: Piperacillin/Tazobactam 3.375 GM in Sodium Chloride 0.9% 100 ML IVPB SCH ×4 (01:12→21:56)
[2022-06-13 03:51] LABS: Base Excess -8.3 mEq/L (-2.0 to +3.0); Calcium, Ionized (venous) 1.02 mmol/L (1.16-1.32); Chloride (VBG) 98 mmol/L (98-106); Hemoglobin (Hb) 13.2 g/dL (12.6-17.4); Potassium (VBG) 5.01 mmol/L (3.70-5.30); Sodium 129.9 mmol/L (133-146); pH (venous) 7.44 (7.32-7.43)
[2022-06-13 03:56] LABS: Actual Bicarbonate (HCO3v) 14 mEq/L (22-28)
[2022-06-13 03:59] LABS: #Lymphocytes 0.9 thou/uL (1.20-3.40); #Monocytes 0.9 thou/uL (0.11-0.59); #Neutrophils 8.5 thou/uL (1.40-6.50); %Basophils 0.2 % (0.0-1.0); %Eosinophils 0.2 % (0.0-10.0); %Lymphocytes 8.5 % (21.0-51.0); %Monocytes 8.9 % (0.0-10.0); %Neutrophils 82.2 % (42.0-75.0); Hemoglobin 12.4 g/dL (14.0-18.0); Mean Corpuscular HGB CONC 30.6 g/dL (32.0-36.0); Mean Corpuscular Hemoglobin 33.2 pg (27.0-31.0); Mean Platelet Volume 8.1 fL (7.4-10.4); Platelet Count 190 thou/uL (130-400); RBC Distribution Width 15.7 % (11.5-14.5); Red Blood Cell (RBC) Count 3.74 mill/uL (4.70-6.10); White Blood Cell (WBC) Count 10.4 thou/uL (4.8-10.8)
[2022-06-13 04:19] LABS: Anion Gap 22 mmol/L (10-20); BUN (Urea Nitrogen) 54 mg/dL (8.4-25.7); Calc. Creatinine Clearance 43 mL/min (70-130); Calcium 9.2 mg/dL (7.8-10.44); Carbon Dioxide 16 mmol/L (23-31); Chloride 98 mmol/L (98-107); Estimated GFR 51; Glucose 137 mg/dL (83-110); Magnesium 2.2 mg/dL (1.6-2.6); Potassium 5.1 mmol/L (3.5-5.1); Sodium 131 mmol/L (136-145)
[2022-06-13 04:20] LABS: ALT (SGPT) 69 U/L (8-55); AST (SGOT) 164 U/L (5-34); Albumin 3.6 g/dL (3.4-4.8); Alkaline Phosphatase 198 U/L (40-110); Bilirubin, Direct 2.4 mg/dL (0.1-0.3); Bilirubin, Total 3.7 mg/dL (0.2-1.2); Lactic Acid 7.6 mmol/L (0.5-2.2)
[2022-06-13] MEDS: Levothyroxine Sodium 50 MCG TAB PO SCH (06:06)
[2022-06-13] MEDS ORDERED: Enoxaparin Sodium 80 MG/0.8 ML SYRINGE SC SCH (09:00)
[2022-06-13] MEDS ORDERED: Pantoprazole 40 MG VIAL IVP SCH (09:00)
[2022-06-13] MEDS ORDERED: FLU VACC QS2022-23(65YR UP)/PF 240 MCG/0.7 ML SYRINGE IM ONE (09:00)
[2022-06-13] MEDS: Carvedilol 3.125 MG TAB PO SCH ×2 (09:37→17:52)
[2022-06-13] MEDS: Amiodarone 200 MG TAB PO SCH ×3 (09:47→20:23)
[2022-06-13] MEDS: Sodium Bicarbonate 150 MEQ in Dextrose 5% in Water 1,000 ML IV SCH (13:18)
[2022-06-13 14:24] LABS: Lactic Acid 2.5 mmol/L (0.5-2.2)
[2022-06-13] MEDS: Apixaban 5 MG TAB PO SCH (20:23)
[2022-06-13] MEDS: Senokot S 8.6-50 MG TAB PO SCH (20:24)
[2022-06-14] MEDS: Sodium Bicarbonate 150 MEQ in Dextrose 5% in Water 1,000 ML IV SCH (00:20)
[2022-06-14 04:10] LABS: #Eosinphils 0.1 thou/uL (0.0-0.7); #Lymphocytes 0.8 thou/uL (1.20-3.40); #Monocytes 0.4 thou/uL (0.11-0.59); #Neutrophils 5.7 thou/uL (1.40-6.50); %Eosinophils 1.1 % (0.0-10.0); %Lymphocytes 11.3 % (21.0-51.0); %Monocytes 6.1 % (0.0-10.0); %Neutrophils 81.5 % (42.0-75.0); Hemoglobin 13.8 g/dL (14.0-18.0); Mean Corpuscular HGB CONC 30.8 g/dL (32.0-36.0); Mean Corpuscular Hemoglobin 33.4 pg (27.0-31.0); Mean Platelet Volume 7.9 fL (7.4-10.4); Platelet Count 192 thou/uL (130-400); RBC Distribution Width 15.8 % (11.5-14.5); Red Blood Cell (RBC) Count 4.12 mill/uL (4.70-6.10)
[2022-06-14 04:31] LABS: Lactic Acid 1.7 mmol/L (0.5-2.2)
[2022-06-14 04:35] LABS: ALT (SGPT) 76 U/L (8-55); AST (SGOT) 151 U/L (5-34); Albumin 3.5 g/dL (3.4-4.8); Alkaline Phosphatase 195 U/L (40-110); Anion Gap 15 mmol/L (10-20); BUN (Urea Nitrogen) 43 mg/dL (8.4-25.7); Bilirubin, Total 2.3 mg/dL (0.2-1.2); Calc. Creatinine Clearance 57 mL/min (70-130); Carbon Dioxide 23 mmol/L (23-31); Chloride 100 mmol/L (98-107); Estimated GFR 72; Globulin 3.6 g/dL (2.4-3.5); Glucose 109 mg/dL (83-110); Iron 30 ug/dL (65-175); Iron Binding Capacity, Total 336 mcg/dL (261-462); Potassium 4.4 mmol/L (3.5-5.1); Protein, Total 7.1 g/dL (5.8-8.1); Sodium 134 mmol/L (136-145)
[2022-06-14 04:44] LABS: Ferritin 161.15 ng/mL (22-322)
[2022-06-14 04:57] LABS: HBCM Index 0.05 S/CO (0-0.79); HBSAg Index 0.33 S/CO (0-0.99); Hep A IgM AB Non-Reactive (NonReactive); Hep B Surf Ag Non-Reactive S/CO (NonReactive); Hep C IgG Ab Non-Reactive (NonReactive); Hep C Index 0.44 S/CO (0-0.79); Hepatitis B Core IgM Abs Non-Reactive (NonReactive)
[2022-06-14] MEDS: Piperacillin/Tazobactam 3.375 GM in Sodium Chloride 0.9% 100 ML IVPB SCH ×2 (06:14→14:46)
[2022-06-14] MEDS: Levothyroxine Sodium 50 MCG TAB PO SCH (06:16)
[2022-06-14] MEDS ORDERED: Metoclopramide HCl 10 MG TAB PO PRN (08:39)
[2022-06-14] MEDS: Apixaban 5 MG TAB PO SCH ×2 (09:46→20:24)
[2022-06-14] MEDS: Senokot S 8.6-50 MG TAB PO SCH ×2 (09:46→20:31)
[2022-06-14] MEDS: Amiodarone 200 MG TAB PO SCH ×3 (09:46→20:24)
[2022-06-14] MEDS: Polyethylene Glycol 3350 17 GM Packet PO SCH (09:46)
[2022-06-14] MEDS: Carvedilol 3.125 MG TAB PO SCH ×2 (09:47→17:04)
[2022-06-14 12:16] LABS: ANA Symphony (Qualitative) Negative (Negative); ANA Symphony (Quantitative) 0.5 Ratio (< 0.7 Negative); EliA Vaculitis New Method **** NEW METHOD ****; Mitochondrial Ab 1.9 U/mL (<4 Negative); dsDNA IgG Antibody 2.9 IU/mL (<10 Negative)
[2022-06-14] MEDS: Amoxicillin/Potassium Clav 875 MG TAB PO SCH (20:24)
[2022-06-14] MEDS: Melatonin 3 MG TAB PO PRN (20:25)
[2022-06-15] MEDS: Levothyroxine Sodium 50 MCG TAB PO SCH (06:40)
[2022-06-15] MEDS: Acetaminophen 325 MG TAB PO PRN (08:29)
[2022-06-15] MEDS: Polyethylene Glycol 3350 17 GM Packet PO SCH (08:30)
[2022-06-15] MEDS: Senokot S 8.6-50 MG TAB PO SCH ×2 (08:30→20:32)
[2022-06-15] MEDS: Amiodarone 200 MG TAB PO SCH ×3 (08:31→20:32)
[2022-06-15] MEDS: Carvedilol 3.125 MG TAB PO SCH ×2 (08:31→18:13)
[2022-06-15] MEDS: Apixaban 5 MG TAB PO SCH ×2 (08:31→20:32)
[2022-06-15] MEDS: Amoxicillin/Potassium Clav 875 MG TAB PO SCH ×2 (08:32→20:32)
[2022-06-15] MEDS ORDERED: HYDROcodone/Acetaminophen 5/325 mg Tablet PO PRN (09:41)
[2022-06-15 10:51] LABS: INR-International Normal Ratio 3.7; Prothrombin Time 37.8 sec (12.0-14.7)
[2022-06-15 10:52] LABS: PTT 47.2 sec (22.9-36.1)
[2022-06-15 10:52] LABS: #Eosinphils 0.1 thou/uL (0.0-0.7); #Lymphocytes 1.2 thou/uL (1.20-3.40); #Monocytes 0.6 thou/uL (0.11-0.59); #Neutrophils 4.4 thou/uL (1.40-6.50); %Basophils 0.2 % (0.0-1.0); %Eosinophils 1.4 % (0.0-10.0); %Lymphocytes 19.4 % (21.0-51.0); %Monocytes 8.8 % (0.0-10.0); %Neutrophils 70.3 % (42.0-75.0); Hemoglobin 13.8 g/dL (14.0-18.0); Mean Corpuscular HGB CONC 30.7 g/dL (32.0-36.0); Mean Corpuscular Hemoglobin 33.5 pg (27.0-31.0); Mean Platelet Volume 8.2 fL (7.4-10.4); Platelet Count 184 thou/uL (130-400); RBC Distribution Width 15.8 % (11.5-14.5); Red Blood Cell (RBC) Count 4.11 mill/uL (4.70-6.10); White Blood Cell (WBC) Count 6.3 thou/uL (4.8-10.8)
[2022-06-15 11:19] LABS: ALT (SGPT) 86 U/L (8-55); AST (SGOT) 138 U/L (5-34); Albumin 3.4 g/dL (3.4-4.8); Alkaline Phosphatase 200 U/L (40-110); Anion Gap 19 mmol/L (10-20); BUN (Urea Nitrogen) 57 mg/dL (8.4-25.7); Bilirubin, Total 2.8 mg/dL (0.2-1.2); Calc. Creatinine Clearance 41 mL/min (70-130); Calcium 8.7 mg/dL (7.8-10.44); Carbon Dioxide 17 mmol/L (23-31); Chloride 99 mmol/L (98-107); Estimated GFR 48; Globulin 3.4 g/dL (2.4-3.5); Glucose 113 mg/dL (83-110); Magnesium 2.3 mg/dL (1.6-2.6); Potassium 5.6 mmol/L (3.5-5.1); Protein, Total 6.8 g/dL (5.8-8.1); Sodium 129 mmol/L (136-145)
[2022-06-15] MEDS ORDERED: Sodium Bicarbonate 2.5 MEQ/5 ML VIAL ONE (14:14)
[2022-06-15] MEDS ORDERED: Lidocaine 2% PF 5 ML VIAL ONE (14:14)
[2022-06-15] MEDS ORDERED: ALPRAZolam 0.5 MG TAB PO PRN (16:05)
[2022-06-15 19:19] LABS: Anion Gap 23 mmol/L (10-20); BUN (Urea Nitrogen) 62 mg/dL (8.4-25.7); Calc. Creatinine Clearance 34 mL/min (70-130); Calcium 8.9 mg/dL (7.8-10.44); Carbon Dioxide 13 mmol/L (23-31); Chloride 99 mmol/L (98-107); Estimated GFR 39; Glucose 88 mg/dL (83-110); Potassium 6.8 mmol/L (3.5-5.1); Sodium 128 mmol/L (136-145)
[2022-06-15] MEDS ORDERED: Dextrose 50% Abboject 50 ML SYRINGE SLOW IVP PRN (19:22)
[2022-06-15] MEDS: Albumin 25% 25 GM/100 ML BOT IVPB SCH ×2 (20:31→21:23)
[2022-06-15] MEDS: Insulin Regular 300 UNITS/3 ML VIAL IVP SCH ×2 (20:31→21:23)
[2022-06-15] MEDS: Benzonatate 100 MG CAP PO SCH (20:32)
[2022-06-15] MEDS ORDERED: Albuterol Sulfate 2.5 mg/3 ml Neb NEB SCH (21:00)
[2022-06-15] MEDS ORDERED: LOKELMA 10 GM PACKET PO SCH (21:00)
[2022-06-16 04:34] LABS: #Eosinphils 0.1 thou/uL (0.0-0.7); #Lymphocytes 0.9 thou/uL (1.20-3.40); #Monocytes 0.4 thou/uL (0.11-0.59); #Neutrophils 4.5 thou/uL (1.40-6.50); %Basophils 0.2 % (0.0-1.0); %Eosinophils 1.2 % (0.0-10.0); %Lymphocytes 14.9 % (21.0-51.0); %Monocytes 6.5 % (0.0-10.0); %Neutrophils 77.1 % (42.0-75.0); Hemoglobin 13.2 g/dL (14.0-18.0); Mean Corpuscular HGB CONC 31.3 g/dL (32.0-36.0); Mean Corpuscular Hemoglobin 34.1 pg (27.0-31.0); Mean Platelet Volume 8.2 fL (7.4-10.4); Platelet Count 186 thou/uL (130-400); Red Blood Cell (RBC) Count 3.87 mill/uL (4.70-6.10); White Blood Cell (WBC) Count 5.9 thou/uL (4.8-10.8)
[2022-06-16 04:53] LABS: Anion Gap 20 mmol/L (10-20); BUN (Urea Nitrogen) 68 mg/dL (8.4-25.7); Calc. Creatinine Clearance 31 mL/min (70-130); Calcium 8.7 mg/dL (7.8-10.44); Carbon Dioxide 16 mmol/L (23-31); Chloride 97 mmol/L (98-107); Estimated GFR 34; Glucose 127 mg/dL (83-110); Potassium 5.7 mmol/L (3.5-5.1); Sodium 127 mmol/L (136-145)
[2022-06-16 04:54] LABS: ALT (SGPT) 88 U/L (8-55); AST (SGOT) 143 U/L (5-34); Albumin 3.3 g/dL (3.4-4.8); Alkaline Phosphatase 192 U/L (40-110); Anion Gap 21 mmol/L (10-20); BUN (Urea Nitrogen) 69 mg/dL (8.4-25.7); Calc. Creatinine Clearance 31 mL/min (70-130); Calcium 8.7 mg/dL (7.8-10.44); Carbon Dioxide 16 mmol/L (23-31); Chloride 98 mmol/L (98-107); Estimated GFR 34; Globulin 3.1 g/dL (2.4-3.5); Glucose 127 mg/dL (83-110); Potassium 5.8 mmol/L (3.5-5.1); Protein, Total 6.4 g/dL (5.8-8.1); Sodium 129 mmol/L (136-145)
[2022-06-16] MEDS: Levothyroxine Sodium 50 MCG TAB PO SCH (06:14)
[2022-06-16] MEDS: Amoxicillin/Potassium Clav 875 MG TAB PO SCH ×2 (07:59→21:29)
[2022-06-16] MEDS: Benzonatate 100 MG CAP PO SCH ×3 (07:59→21:29)
[2022-06-16] MEDS: Amiodarone 200 MG TAB PO SCH (08:00)
[2022-06-16] MEDS: Apixaban 5 MG TAB PO SCH (08:00)
[2022-06-16] MEDS: Carvedilol 3.125 MG TAB PO SCH (08:00)
[2022-06-16] MEDS: Polyethylene Glycol 3350 17 GM Packet PO SCH (08:00)
[2022-06-16] MEDS: Albumin 25% 25 GM/100 ML BOT IVPB SCH ×2 (08:00→14:36)
[2022-06-16] MEDS: Senokot S 8.6-50 MG TAB PO SCH ×2 (08:01→21:48)
[2022-06-16] MEDS: LOKELMA 5 GM PACKET PO SCH ×3 (09:48→21:31)
[2022-06-16 13:50] LABS: RBC Count-Automated (BF) 4540 /cu.mm; WBC/Nucleated-Auto (BF) 312 /cu.mm
[2022-06-16 13:59] LABS: BF Color Yellow; Body Fluid Source Ascites Body Fluid; Clarity Hazy (Clear); Tube # EDTA
[2022-06-16 14:12] LABS: BF Segmented Neutrophils 62 %; Cell Count Non Hematic 27 %; Lymphocytes 11 %
[2022-06-16 16:24] LABS: Anion Gap 18 mmol/L (10-20); BUN (Urea Nitrogen) 73 mg/dL (8.4-25.7); Calc. Creatinine Clearance 30 mL/min (70-130); Calcium 8.9 mg/dL (7.8-10.44); Carbon Dioxide 21 mmol/L (23-31); Chloride 97 mmol/L (98-107); Estimated GFR 34; Glucose 140 mg/dL (83-110); Potassium 5.5 mmol/L (3.5-5.1); Sodium 130 mmol/L (136-145)
[2022-06-16] MEDS ORDERED: Apixaban 5 MG TAB PO SCH (21:00)
[2022-06-17] MEDS: Levothyroxine Sodium 50 MCG TAB PO SCH (06:16)
[2022-06-17] MEDS: Amoxicillin/Potassium Clav 875 MG TAB PO SCH ×2 (09:58→22:03)
[2022-06-17] MEDS: Benzonatate 100 MG CAP PO SCH ×3 (10:07→22:03)
[2022-06-17] MEDS: Senokot S 8.6-50 MG TAB PO SCH ×2 (10:08→22:04)
[2022-06-17] MEDS: Enoxaparin Sodium 40 MG/0.4 ML SYRINGE SC SCH ×3 (10:09→22:03)
[2022-06-17] MEDS: Polyethylene Glycol 3350 17 GM Packet PO SCH (10:16)
[2022-06-17 14:01] LABS: #Eosinphils 0.1 thou/uL (0.0-0.7); #Lymphocytes 0.8 thou/uL (1.20-3.40); #Monocytes 0.4 thou/uL (0.11-0.59); #Neutrophils 3.5 thou/uL (1.40-6.50); %Basophils 0.2 % (0.0-1.0); %Eosinophils 2.5 % (0.0-10.0); %Lymphocytes 16.2 % (21.0-51.0); %Neutrophils 72.2 % (42.0-75.0); Hemoglobin 12.9 g/dL (14.0-18.0); Mean Corpuscular Hemoglobin 34.3 pg (27.0-31.0); Mean Platelet Volume 8.4 fL (7.4-10.4); Platelet Count 196 thou/uL (130-400); Red Blood Cell (RBC) Count 3.76 mill/uL (4.70-6.10); White Blood Cell (WBC) Count 4.8 thou/uL (4.8-10.8)
[2022-06-17 14:16] LABS: Anion Gap 16 mmol/L (10-20); BUN (Urea Nitrogen) 65 mg/dL (8.4-25.7); Calc. Creatinine Clearance 40 mL/min (70-130); Calcium 8.4 mg/dL (7.8-10.44); Carbon Dioxide 20 mmol/L (23-31); Chloride 98 mmol/L (98-107); Estimated GFR 48; Glucose 141 mg/dL (83-110); Potassium 4.6 mmol/L (3.5-5.1); Sodium 129 mmol/L (136-145)
[2022-06-17] MEDS ORDERED: LOKELMA 10 GM PACKET PO SCH (15:00)
[2022-06-18] MEDS: Benzonatate 100 MG CAP PO SCH ×4 (00:10→21:49)
[2022-06-18] MEDS: Senokot S 8.6-50 MG TAB PO SCH ×3 (00:13→21:50)
[2022-06-18] MEDS: Amoxicillin/Potassium Clav 875 MG TAB PO SCH ×3 (00:15→21:49)
[2022-06-18 05:00] LABS: #Eosinphils 0.1 thou/uL (0.0-0.7); #Lymphocytes 0.9 thou/uL (1.20-3.40); #Monocytes 0.5 thou/uL (0.11-0.59); #Neutrophils 3.1 thou/uL (1.40-6.50); %Basophils 0.2 % (0.0-1.0); %Eosinophils 2.3 % (0.0-10.0); %Lymphocytes 19.3 % (21.0-51.0); %Monocytes 11.5 % (0.0-10.0); %Neutrophils 66.6 % (42.0-75.0); Hemoglobin 12.2 g/dL (14.0-18.0); Mean Corpuscular HGB CONC 31.4 g/dL (32.0-36.0); Mean Corpuscular Hemoglobin 33.6 pg (27.0-31.0); Platelet Count 195 thou/uL (130-400); RBC Distribution Width 15.8 % (11.5-14.5); Red Blood Cell (RBC) Count 3.62 mill/uL (4.70-6.10); White Blood Cell (WBC) Count 4.6 thou/uL (4.8-10.8)
[2022-06-18] MEDS: Levothyroxine Sodium 50 MCG TAB PO SCH (05:37)
[2022-06-18 08:04] LABS: Albumin 3.4 g/dL (3.4-4.8)
[2022-06-18 08:05] LABS: Chloride 99 mmol/L (98-107); Potassium 4.5 mmol/L (3.5-5.1); Sodium 129 mmol/L (136-145)
[2022-06-18 08:06] LABS: Calcium 8.5 mg/dL (7.8-10.44)
[2022-06-18 08:07] LABS: Globulin 3.2 g/dL (2.4-3.5); Glucose 140 mg/dL (83-110); Protein, Total 6.6 g/dL (5.8-8.1)
[2022-06-18 08:08] LABS: Anion Gap 15 mmol/L (10-20); Carbon Dioxide 20 mmol/L (23-31)
[2022-06-18 08:09] LABS: Alkaline Phosphatase 227 U/L (40-110); Bilirubin, Total 1.9 mg/dL (0.2-1.2)
[2022-06-18 08:10] LABS: Calc. Creatinine Clearance 48 mL/min (70-130); Estimated GFR 61; Phosphorus 2.8 mg/dL (2.3-4.7)
[2022-06-18 08:11] LABS: BUN (Urea Nitrogen) 54 mg/dL (8.4-25.7)
[2022-06-18 08:12] LABS: AST (SGOT) 95 U/L (5-34); Magnesium 2.2 mg/dL (1.6-2.6)
[2022-06-18 08:13] LABS: ALT (SGPT) 73 U/L (8-55)
[2022-06-18] MEDS: Polyethylene Glycol 3350 17 GM Packet PO SCH (09:41)
[2022-06-18] MEDS: Enoxaparin Sodium 40 MG/0.4 ML SYRINGE SC SCH ×2 (09:42→21:50)
[2022-06-18] MEDS: Acetaminophen 325 MG TAB PO PRN (23:36)
[2022-06-18] MEDS: Melatonin 3 MG TAB PO PRN (23:36)
[2022-06-19] MEDS: Levothyroxine Sodium 50 MCG TAB PO SCH (05:37)
[2022-06-19] MEDS: Benzonatate 100 MG CAP PO SCH ×3 (09:25→21:21)
[2022-06-19] MEDS: Polyethylene Glycol 3350 17 GM Packet PO SCH (09:25)
[2022-06-19] MEDS: Senokot S 8.6-50 MG TAB PO SCH ×2 (09:25→21:22)
[2022-06-19] MEDS: Amoxicillin/Potassium Clav 875 MG TAB PO SCH ×2 (09:25→21:22)
[2022-06-19] MEDS: Enoxaparin Sodium 40 MG/0.4 ML SYRINGE SC SCH ×2 (09:25→21:22)
[2022-06-19 12:02] LABS: #Eosinphils 0.2 thou/uL (0.0-0.7); #Lymphocytes 0.7 thou/uL (1.20-3.40); #Monocytes 0.6 thou/uL (0.11-0.59); %Basophils 0.5 % (0.0-1.0); %Eosinophils 2.3 % (0.0-10.0); %Lymphocytes 11.3 % (21.0-51.0); %Neutrophils 76.8 % (42.0-75.0); Hemoglobin 13.4 g/dL (14.0-18.0); Mean Corpuscular HGB CONC 30.6 g/dL (32.0-36.0); Mean Corpuscular Hemoglobin 33.7 pg (27.0-31.0); Mean Platelet Volume 7.2 fL (7.4-10.4); Platelet Count 208 thou/uL (130-400); RBC Distribution Width 15.7 % (11.5-14.5); Red Blood Cell (RBC) Count 3.99 mill/uL (4.70-6.10); White Blood Cell (WBC) Count 6.6 thou/uL (4.8-10.8)
[2022-06-19 12:37] LABS: ALT (SGPT) 48 U/L (8-55); AST (SGOT) 60 U/L (5-34); Alkaline Phosphatase 237 U/L (40-110); Anion Gap 9 mmol/L (10-20); BUN (Urea Nitrogen) 32 mg/dL (8.4-25.7); Bilirubin, Total 1.9 mg/dL (0.2-1.2); Calc. Creatinine Clearance 78 mL/min (70-130); Calcium 8.3 mg/dL (7.8-10.44); Carbon Dioxide 26 mmol/L (23-31); Chloride 105 mmol/L (98-107); Estimated GFR 92; Globulin 3.4 g/dL (2.4-3.5); Glucose 97 mg/dL (83-110); Potassium 4.7 mmol/L (3.5-5.1); Protein, Total 6.4 g/dL (5.8-8.1); Sodium 135 mmol/L (136-145)
[2022-06-19] MEDS: Melatonin 3 MG TAB PO PRN (21:21)
[2022-06-19] MEDS: Acetaminophen 325 MG TAB PO PRN (21:21)
[2022-06-20] MEDS: Acetaminophen 325 MG TAB PO PRN (05:43)
[2022-06-20] MEDS: Levothyroxine Sodium 50 MCG TAB PO SCH (06:02)
[2022-06-20] MEDS: Enoxaparin Sodium 40 MG/0.4 ML SYRINGE SC SCH (09:57)
[2022-06-20] MEDS: Polyethylene Glycol 3350 17 GM Packet PO SCH (09:57)
[2022-06-20] MEDS: Amoxicillin/Potassium Clav 875 MG TAB PO SCH (09:57)
[2022-06-20] MEDS: Benzonatate 100 MG CAP PO SCH ×2 (09:57→16:05)
[2022-06-20] MEDS: Senokot S 8.6-50 MG TAB PO SCH (09:58)
[2022-06-20 15:40] VITALS: BMI 23.0
[2022-06-20 16:28] VITALS: BP 113/59; TEMP 96.7
== END 2022-06-20 21:56 | disposition home or self-care (01) | DRG 308 ==
LOC: ERS 10:27 → ERHOLD 12:58 → CCU 15:22 → 2NO 06-14 17:58
PROVIDERS: ADMIT Family Medicine; ATTEND Internal Medicine
PROC: 5A0935A Assistance with Respiratory Ventilation, Less than 24 Consecutive Hours, High Flow/Velocity Cannula (ICD-10-PCS; 2022-06-12)
PROC: 02HV33Z Insertion of Infusion Device into Superior Vena Cava, Percutaneous Approach (ICD-10-PCS; principal; 2022-06-16)
PROC: B548ZZA Ultrasonography of Superior Vena Cava, Guidance (ICD-10-PCS; 2022-06-16)
PROC: 0W9G3ZX Drainage of Peritoneal Cavity, Percutaneous Approach, Diagnostic (ICD-10-PCS; 2022-06-16)
DX: I47.20 Ventricular tachycardia, unspecified (principal); I50.23 Acute on chronic systolic (congestive) heart failure; K83.1 Obstruction of bile duct; J96.01 Acute respiratory failure with hypoxia; J18.9 Pneumonia, unspecified organism; E87.1 Hypo-osmolality and hyponatremia; E87.20 Acidosis, unspecified; J90 Pleural effusion, not elsewhere classified; R18.8 Other ascites; I13.0 Hypertensive heart and chronic kidney disease with heart failure and stage 1 through stage 4 chronic kidney disease, or unspecified chronic kidney disease; I42.8 Other cardiomyopathies; N17.9 Acute kidney failure, unspecified; I48.0 Paroxysmal atrial fibrillation; I48.92 Unspecified atrial flutter; E03.9 Hypothyroidism, unspecified; Z79.01 Long term (current) use of anticoagulants; Z79.890 Hormone replacement therapy; Z79.899 Other long term (current) drug therapy; I08.1 Rheumatic disorders of both mitral and tricuspid valves; I25.10 Atherosclerotic heart disease of native coronary artery without angina pectoris; Z82.49 Family history of ischemic heart disease and other diseases of the circulatory system; I45.2 Bifascicular block; K42.9 Umbilical hernia without obstruction or gangrene; E16.2 Hypoglycemia, unspecified; D64.9 Anemia, unspecified; E87.5 Hyperkalemia; E88.09 Other disorders of plasma-protein metabolism, not elsewhere classified; Z91.14 Patient's other noncompliance with medication regimen; T46.2X6A Underdosing of other antidysrhythmic drugs, initial encounter; T45.516A Underdosing of anticoagulants, initial encounter; Z87.891 Personal history of nicotine dependence; F10.10 Alcohol abuse, uncomplicated; N40.1 Benign prostatic hyperplasia with lower urinary tract symptoms; R33.8 Other retention of urine; Z97.8 Presence of other specified devices; Z91.81 History of falling; N18.30 Chronic kidney disease, stage 3 unspecified
CPT/HCPCS: 36415; 36416; 36569; 49083; 71045; 74177; 76705; 80048; 80053; 80074; 80076; 82042; 82553; 82728; 82805; 83516; 83540; 83550; 83605; 83735; 83880; 84100; 84157; 84484; 85025; 85060; 85610; 85730; 86015; 86038; 86225; 87070; 87077; 87086; 87186; 87205; 89051; 93005; 93010; 93923; 96365; 96366; 96372; 96375; 96376; C1751; C9113; J0282; J1644; J1650; J1815; J1940; J2001; J2250; J2405; J2543; J3475; J3490; J7070; J7999; P9047; Q9967

== ENCOUNTER 2022-07-11 11:20 | Emergency (ER) | payer OTHER ==
[2022-07-11] MEDS ORDERED: Ondansetron ODT 4 MG TAB ONE (11:37)
[2022-07-11] MEDS ORDERED: Acetaminophen 500 MG TAB ONE (11:37)
== END 2022-07-11 12:20 | disposition home or self-care (01) ==
LOC: ERS 11:20
DX: K42.9 Umbilical hernia without obstruction or gangrene (principal)
CPT/HCPCS: 99283; Q0162

== ENCOUNTER 2022-10-31 12:08 | Inpatient (IN) | payer OTHER ==
[~2022-10-31 12:08] MED LIST changes: +GASTROGRAFIN 30 ML BOT ONE
[2022-10-31] MEDS ORDERED: Amiodarone 150 MG/3 ML VIAL ONE (12:09)
[2022-10-31] MEDS ORDERED: Fentanyl 100 MCG/2 ML VIAL ONE (12:13)
[2022-10-31 12:43] LABS: Analyzer IN Cardio ER; Base Excess (BEa) -6.5 mEq/L (-2.0 to +3.0); CO2 Tension 33.2 mmHg (35.0-45.0); Calcium, Ionized (arterial) 1.08 mmol/L (1.12-1.30); Carboxyhemoglobin (COHb) 0.4 gm% (0.0-3.0); Hemoglobin (Hb) 15.2 g/dL (14.0-18.0); O2 Tension (PaO2), arterial 144.4 mmHg (> 70.0); Potassium - ABG Lab 3.07 mmol/L (3.70-5.30); pH, Arterial 7.35 (7.35-7.45)
[2022-10-31 12:46] LABS: Puncture Site RBA
[2022-10-31 12:57] LABS: Hemoglobin 16.4 g/dL (14.0-18.0); Mean Corpuscular HGB CONC 32.5 g/dL (32.0-36.0); Mean Corpuscular Hemoglobin 33.3 pg (27.0-31.0); Mean Platelet Volume 7.9 fL (7.4-10.4); Platelet Count 170 10x3/uL (130-400); RBC Distribution Width 13.1 % (11.5-14.5); Red Blood Cell (RBC) Count 4.91 mill/uL (4.70-6.10); White Blood Cell (WBC) Count 4.1 10x3/uL (4.8-10.8)
[2022-10-31 13:13] LABS: ALT (SGPT) 10 U/L (8-55); AST (SGOT) 35 U/L (5-34); Albumin 4.1 g/dL (3.4-4.8); Alkaline Phosphatase 130 U/L (40-110); Anion Gap 19 mmol/L (10-20); BUN (Urea Nitrogen) 50 mg/dL (8.4-25.7); Bilirubin, Total 1.5 mg/dL (0.2-1.2); CK (CPK) 167 U/L (30-200); Calc. Creatinine Clearance 0 mL/min (70-130); Calcium 9.3 mg/dL (7.8-10.44); Carbon Dioxide 17 mmol/L (23-31); Chloride 102 mmol/L (98-107); Estimated GFR 56; Globulin 3.8 g/dL (2.4-3.5); Glucose 108 mg/dL (83-110); Potassium 3.7 mmol/L (3.5-5.1); Protein, Total 7.9 g/dL (5.8-8.1); Sodium 134 mmol/L (136-145)
[2022-10-31] MEDS ORDERED: Aspirin Chewable 81 MG TAB ONE (13:27)
[2022-10-31 13:32] LABS: CKMB 6.5 ng/mL (0-6.6)
[2022-10-31 13:53] LABS: SARS-CoV-2 NAA Rapid Test DETECTED (NotDetected)
[2022-10-31 14:05] LABS: Band 16 % (5-11); Lymphocytes 7 % (21-51); MDiff Complete? YES; Macrocytosis SLIGHT = 6-15 cells (100X) (0-5/hpf); Monocytes 5 % (0-10); Neutrophil 71 % (42-75); Platelet Morphology Comment Appears Adequate; Polychromasia SLIGHT = 2-3 cells (100X) (0-2/hpf)
[2022-10-31] MEDS ORDERED: Lidocaine 1% MPF 2 ML VIAL ONE (15:10)
[2022-10-31] MEDS ORDERED: Ondansetron PF 4 MG/2 ML Vial IVP PRN (15:26)
[2022-10-31] MEDS ORDERED: TETANUS, DIPHTHERIA TOX,ADULT (TDVAX) 0.5 ML VIAL IM ONE (15:26)
[2022-10-31] MEDS ORDERED: Morphine 2 MG/ML VIAL SLOW IVP PRN (15:26)
[2022-10-31] MEDS ORDERED: Sodium Bicarbonate 2.5 MEQ/5 ML VIAL ONE ×2 (15:46→17:07)
[2022-10-31] MEDS ORDERED: Fentanyl 250 MCG/5 ML VIAL ONE (15:46)
[2022-10-31] MEDS ORDERED: Calcium Chloride 1 GM/10 ML Abboject SYRINGE ONE ×3 (15:46→17:20)
[2022-10-31] MEDS ORDERED: Norepinephrine 4 MG/4 ML VIAL ONE (15:46)
[2022-10-31] MEDS ORDERED: Albumin 5% 500 ML ONE (15:47)
[2022-10-31] MEDS ORDERED: PHENYLEPHRINE-NS 100 MCG/ML 10 ML SYRINGE ONE (16:19)
[2022-10-31] MEDS ORDERED: Rocuronium Bromide 10 MG/ML (10ML VIAL) ONE (16:19)
[2022-10-31] MEDS ORDERED: Succinylcholine Chloride 100 MG/5 ML SYRINGE FS ONE (16:19)
[2022-10-31 16:20] LABS: INR-International Normal Ratio 1.5; PTT 32.2 sec (22.9-36.1); Prothrombin Time 18.7 sec (12.0-14.7)
[2022-10-31] MEDS ORDERED: Piperacillin/Tazobactam 3.375 GM VIAL ONE (16:21)
[2022-10-31 16:23] LABS: Lactic Acid 2.5 mmol/L (0.5-2.2)
[2022-10-31] MEDS ORDERED: Midazolam HCl 5 mg/5 ml Vial ONE (16:34)
[2022-10-31] MEDS ORDERED: Sodium Bicarb 50 MEQ/50 ML VIAL ONE (17:07)
[2022-10-31] MEDS ORDERED: FENTANYL 500 MCG/10 ML VIAL 2,000 MCG in Sodium Chloride 0.9% 60 ML IV PRN (18:04)
[2022-10-31] MEDS ORDERED: Dexmedetomidine In 0.9 % NaCl 100 ML IVPB SCH (18:15)
[2022-10-31] MEDS ORDERED: Fentanyl CADD 100 ML ONE (18:20)
[2022-10-31] MEDS: Fentanyl CADD 100 ML IV SCH (18:27)
[2022-10-31] MEDS: Sodium Chloride 0.9% 1,000 ML IV SCH (18:27)
[2022-10-31] MEDS ORDERED: Calcium Chloride 1 GM/10 ML Abboject SYRINGE IVP SCH (18:30)
[2022-10-31 19:24] LABS: Lactic Acid 1.6 mmol/L (0.5-2.2)
[2022-10-31] MEDS: Ipratropium/Albuterol 3 ML NEB NEB SCH (19:29)
[2022-10-31 19:31] LABS: Actual Bicarbonate (HCO3a) 19.3 mEq/L (22-28); CO2 Tension 46.3 mmHg (35.0-45.0); Calcium, Ionized (arterial) 1.29 mmol/L (1.12-1.30); Carboxyhemoglobin (COHb) 0.6 gm% (0.0-3.0); Hemoglobin (Hb) 13.9 g/dL (14.0-18.0); O2 Tension (PaO2), arterial 143.5 mmHg (> 70.0); pH, Arterial 7.24 (7.35-7.45)
[2022-10-31 19:32] LABS: Puncture Site Arterial Line
[2022-10-31 19:33] LABS: ALV-art Gradient 226.425 mmHg (0-20)
[2022-10-31 19:37] LABS: Troponin I 4.779 ng/mL (< 0.028)
[2022-10-31] MEDS: Famotidine/PF 20 mg/2ml Vial SLOW IVP SCH (19:58)
[2022-10-31] MEDS ORDERED: Magnesium 2 GM/50 ML(in water) 2 GM in Premix Bag 1 BAG IVPB SCH (20:00)
[2022-10-31] MEDS ORDERED: Sodium Chloride 0.9% 500 ML IVPB SCH (20:45)
[2022-10-31] MEDS: NOREPINEPHRINE 8 MG/250 ML-D5W 250 ML IVPB SCH (20:48)
[2022-10-31 21:19] LABS: Anion Gap 16 mmol/L (10-20); BUN (Urea Nitrogen) 52 mg/dL (8.4-25.7); Calc. Creatinine Clearance 42 mL/min (70-130); Calcium 9.2 mg/dL (7.8-10.44); Carbon Dioxide 18 mmol/L (23-31); Chloride 107 mmol/L (98-107); Estimated GFR 49; Glucose 111 mg/dL (83-110); Magnesium 1.7 mg/dL (1.6-2.6); Phosphorus 3.9 mg/dL (2.3-4.7); Potassium 3.3 mmol/L (3.5-5.1); Sodium 138 mmol/L (136-145)
[2022-10-31] MEDS: Piperacillin/Tazobactam 3.375 GM in Sodium Chloride 0.9% 100 ML IVPB SCH (22:17)
[2022-10-31] MEDS ORDERED: Potassium Phosphate 15 MMOL in Sodium Chloride 0.9% 100 ML IVPB SCH (23:00)
[2022-11-01 01:49] LABS: Hemoglobin 12.7 g/dL (14.0-18.0); Mean Corpuscular HGB CONC 32.8 g/dL (32.0-36.0); Mean Corpuscular Hemoglobin 34.3 pg (27.0-31.0); Platelet Count 144 10x3/uL (130-400); RBC Distribution Width 13.1 % (11.5-14.5); Red Blood Cell (RBC) Count 3.69 mill/uL (4.70-6.10); White Blood Cell (WBC) Count 3.3 10x3/uL (4.8-10.8)
[2022-11-01 02:11] LABS: Band 33 % (5-11); Crenated RBC SLIGHT = 1-5 cells (100X) (None Seen); Lymphocytes 13 % (21-51); MDiff Complete? YES; Macrocytosis SLIGHT = 6-15 cells (100X) (0-5/hpf); Metamyelocyte 12 % (0-0); Monocytes 4 % (0-10); Myelocyte 1 % (0-0); Neutrophil 37 % (42-75); Ovalocytes SLIGHT = 2-5 cells (100X) (0-1/hpf); Platelet Morphology Comment Appears Adequate; Polychromasia SLIGHT = 2-3 cells (100X) (0-2/hpf); Schistocytes SLIGHT = 2-5 cells (100X) (0-1/hpf)
[2022-11-01 02:21] LABS: Lactic Acid 1.2 mmol/L (0.5-2.2)
[2022-11-01 02:28] LABS: Anion Gap 17 mmol/L (10-20); BUN (Urea Nitrogen) 50 mg/dL (8.4-25.7); Calc. Creatinine Clearance 45 mL/min (70-130); Calcium 8.7 mg/dL (7.8-10.44); Carbon Dioxide 13 mmol/L (23-31); Chloride 110 mmol/L (98-107); Estimated GFR 53; Glucose 99 mg/dL (83-110); Magnesium 2.3 mg/dL (1.6-2.6); Phosphorus 4.8 mg/dL (2.3-4.7); Potassium 3.6 mmol/L (3.5-5.1); Sodium 136 mmol/L (136-145)
[2022-11-01] MEDS ORDERED: Albumin 5% 500 ML ONE (03:37)
[2022-11-01] MEDS: Sodium Chloride 0.9% 1,000 ML IV SCH ×4 (03:52→22:13)
[2022-11-01] MEDS ORDERED: ALBUMIN 5% 25 GM/500 ML BAG IVPB SCH (04:00)
[2022-11-01] MEDS: Piperacillin/Tazobactam 3.375 GM in Sodium Chloride 0.9% 100 ML IVPB SCH ×3 (05:23→22:12)
[2022-11-01] MEDS ORDERED: Hydrocortisone Sod Succ/PF 100 mg/2 ml Vial IVP SCH (06:45)
[2022-11-01] MEDS: Ipratropium/Albuterol 3 ML NEB NEB SCH ×2 (07:22→14:05)
[2022-11-01 07:33] LABS: Actual Bicarbonate (HCO3a) 17.5 mEq/L (22-28); Base Excess (BEa) -7.7 mEq/L (-2.0 to +3.0); CO2 Tension 34.7 mmHg (35.0-45.0); Calcium, Ionized (arterial) 1.17 mmol/L (1.12-1.30); Carboxyhemoglobin (COHb) 0.2 gm% (0.0-3.0); Hemoglobin (Hb) 12.6 g/dL (14.0-18.0); O2 Tension (PaO2), arterial 173.8 mmHg (> 70.0); Potassium - ABG Lab 3.44 mmol/L (3.70-5.30); pH, Arterial 7.32 (7.35-7.45)
[2022-11-01 07:36] LABS: ALV-art Gradient 139.325 mmHg (0-20); Puncture Site Arterial Line
[2022-11-01 08:14] LABS: Hemoglobin 12.1 g/dL (14.0-18.0); Mean Corpuscular HGB CONC 32.3 g/dL (32.0-36.0); Mean Corpuscular Hemoglobin 33.8 pg (27.0-31.0); Mean Platelet Volume 7.8 fL (7.4-10.4); Platelet Count 156 10x3/uL (130-400); RBC Distribution Width 13.1 % (11.5-14.5); Red Blood Cell (RBC) Count 3.56 mill/uL (4.70-6.10); White Blood Cell (WBC) Count 4.4 10x3/uL (4.8-10.8)
[2022-11-01 08:27] LABS: Lactic Acid 1.2 mmol/L (0.5-2.2)
[2022-11-01 08:32] LABS: Anion Gap 13 mmol/L (10-20); BUN (Urea Nitrogen) 50 mg/dL (8.4-25.7); Calc. Creatinine Clearance 43 mL/min (70-130); Calcium 8.2 mg/dL (7.8-10.44); Carbon Dioxide 17 mmol/L (23-31); Chloride 110 mmol/L (98-107); Estimated GFR 50; Glucose 85 mg/dL (83-110); Magnesium 2.2 mg/dL (1.6-2.6); Phosphorus 3.9 mg/dL (2.3-4.7); Potassium 3.4 mmol/L (3.5-5.1); Sodium 137 mmol/L (136-145)
[2022-11-01] MEDS: Thiamine HCl 200 MG/2 ML VIAL SLOW IVP SCH (08:38)
[2022-11-01] MEDS: Famotidine/PF 20 mg/2ml Vial SLOW IVP SCH ×2 (08:39→20:25)
[2022-11-01] MEDS ORDERED: FLU VACC QS2022-23(65YR UP)/PF 240 MCG/0.7 ML SYRINGE IM ONE (09:00)
[2022-11-01 09:18] LABS: Band 50 % (5-11); Lymphocytes 7 % (21-51); MDiff Complete? YES; Metamyelocyte 19 % (0-0); Monocytes 7 % (0-10); Myelocyte 2 % (0-0); Neutrophil 14 % (42-75); Platelet Morphology Comment Appears Adequate; Polychromasia SLIGHT = 2-3 cells (100X) (0-2/hpf); Reactive Lymphocytes 1 % (0-10); Vacuoles MODERATE
[2022-11-01] MEDS: Folic Acid 0.4 MG in Admixture Fee 1 EACH SC SCH (09:55)
[2022-11-01] MEDS: Hydrocortisone Sod Succ/PF 100 mg/2 ml Vial IVP SCH ×2 (10:09→17:07)
[2022-11-01] MEDS: NOREPINEPHRINE 8 MG/250 ML-D5W 250 ML IVPB SCH (10:09)
[2022-11-01] MEDS ORDERED: Potassium Phosphate 15 MMOL in Sodium Chloride 0.9% 250 ML 250 ML IVPB SCH (11:30)
[2022-11-01] MEDS ORDERED: Adenosine 6 MG/2 ML VIAL ONE ×3 (14:39→23:34)
[2022-11-01] MEDS ORDERED: Amiodarone 150 MG, Admixture Fee 1 EACH in Dextrose 5% in Water 100 ML IVPB SCH (16:30)
[2022-11-01] MEDS: Amiodarone 450 MG, Admixture Fee 1 EACH in Dextrose 5% in Water 250 ML IVPB SCH (17:15)
[2022-11-01 18:12] LABS: Anion Gap 15 mmol/L (10-20); BUN (Urea Nitrogen) 48 mg/dL (8.4-25.7); Calc. Creatinine Clearance 42 mL/min (70-130); Carbon Dioxide 15 mmol/L (23-31); Chloride 112 mmol/L (98-107); Estimated GFR 48; Glucose 112 mg/dL (83-110); Magnesium 2.1 mg/dL (1.6-2.6); Phosphorus 5.1 mg/dL (2.3-4.7); Potassium 3.9 mmol/L (3.5-5.1); Sodium 138 mmol/L (136-145)
[2022-11-01] MEDS ORDERED: Adenosine 6 MG/2 ML VIAL IVP SCH (23:45)
[2022-11-01] MEDS ORDERED: Adenosine 6 MG/2 ML VIAL IVP PRN (23:49)
[2022-11-02] MEDS ORDERED: Sodium Chloride 0.9% 1,000 ML IV SCH (00:06)
[2022-11-02] MEDS: Amiodarone 450 MG, Admixture Fee 1 EACH in Dextrose 5% in Water 250 ML IVPB SCH ×3 (00:13→22:13)
[2022-11-02] MEDS: Hydrocortisone Sod Succ/PF 100 mg/2 ml Vial IVP SCH ×3 (02:06→18:17)
[2022-11-02 04:02] LABS: Mean Corpuscular HGB CONC 31.7 g/dL (32.0-36.0); Mean Corpuscular Hemoglobin 33.4 pg (27.0-31.0); Mean Platelet Volume 8.5 fL (7.4-10.4); Platelet Count 143 10x3/uL (130-400); RBC Distribution Width 13.3 % (11.5-14.5); Red Blood Cell (RBC) Count 3.59 mill/uL (4.70-6.10); White Blood Cell (WBC) Count 5.4 10x3/uL (4.8-10.8)
[2022-11-02 04:18] LABS: Lactic Acid 1.2 mmol/L (0.5-2.2)
[2022-11-02 04:22] LABS: Phosphorus 5.3 mg/dL (2.3-4.7)
[2022-11-02 04:23] LABS: Anion Gap 18 mmol/L (10-20); BUN (Urea Nitrogen) 50 mg/dL (8.4-25.7); CRP (Inflammatory) 31.54 mg/dL (= or < 0.5); Calc. Creatinine Clearance 38 mL/min (70-130); Calcium 8.1 mg/dL (7.8-10.44); Carbon Dioxide 12 mmol/L (23-31); Chloride 112 mmol/L (98-107); Estimated GFR 41; Glucose 135 mg/dL (83-110); Magnesium 2.2 mg/dL (1.6-2.6); Potassium 4.2 mmol/L (3.5-5.1); Sodium 138 mmol/L (136-145)
[2022-11-02 04:25] LABS: Band 45 % (5-11); Burr Cells MODERATE= 6-15 cells (100X) (0-1/hpf); Lymphocytes 6 % (21-51); MDiff Complete? YES; Monocytes 5 % (0-10); Neutrophil 43 % (42-75); Reactive Lymphocytes 1 % (0-10)
[2022-11-02 04:34] LABS: Troponin I 1.858 ng/mL (< 0.028)
[2022-11-02] MEDS ORDERED: Sodium Bicarbonate 150 MEQ in Dextrose 5% in Water 1,000 ML IV SCH (05:00)
[2022-11-02] MEDS: Piperacillin/Tazobactam 3.375 GM in Sodium Chloride 0.9% 100 ML IVPB SCH ×3 (05:09→22:12)
[2022-11-02] MEDS ORDERED: Fentanyl 250 MCG/5 ML VIAL ONE (06:32)
[2022-11-02] MEDS ORDERED: Propofol 500 MG/50 ML VIAL ONE (06:33)
[2022-11-02] MEDS ORDERED: Norepinephrine 4 MG/4 ML VIAL ONE ×2 (06:50→07:14)
[2022-11-02] MEDS ORDERED: Adenosine 6 MG/2 ML VIAL ONE (06:50)
[2022-11-02] MEDS ORDERED: EPINEPHrine 1 MG/ML AMP ONE (06:50)
[2022-11-02 07:28] LABS: CO2 Tension 29.3 mmHg (35.0-45.0); Calcium, Ionized (arterial) 1.11 mmol/L (1.12-1.30); Carboxyhemoglobin (COHb) 0.3 gm% (0.0-3.0); Hemoglobin (Hb) 12.7 g/dL (14.0-18.0); O2 Tension (PaO2), arterial 239.7 mmHg (> 70.0); Potassium - ABG Lab 4.11 mmol/L (3.70-5.30)
[2022-11-02 07:31] LABS: ALV-art Gradient 80.175 mmHg (0-20); Actual Bicarbonate (HCO3a) 14.1 mEq/L (22-28); Puncture Site Arterial Line
[2022-11-02] MEDS ORDERED: Calcium Chloride 1 GM/10 ML Abboject SYRINGE ONE (07:42)
[2022-11-02] MEDS ORDERED: Calcium Chloride 1 GM/10 ML Abboject SYRINGE IVP SCH ×4 (07:45→20:00)
[2022-11-02] MEDS ORDERED: Sodium Bicarb 50 MEQ/50 ML VIAL ONE (08:41)
[2022-11-02] MEDS ORDERED: ePHEDrine 50 MG/ML VIAL ONE (08:44)
[2022-11-02] MEDS ORDERED: Ondansetron PF 4 MG/2 ML Vial ONE (08:44)
[2022-11-02] MEDS ORDERED: Glycopyrrolate 0.2 MG/ML 5 ML SYRINGE ONE (08:44)
[2022-11-02] MEDS ORDERED: NEOSTIGMINE 3 MG/3 ML SYR 3 MG/3 ML SYRINGE ONE (08:44)
[2022-11-02] MEDS ORDERED: Rocuronium Bromide 10 MG/ML (10ML VIAL) ONE (08:44)
[2022-11-02] MEDS: Famotidine/PF 20 mg/2ml Vial SLOW IVP SCH ×2 (11:00→20:00)
[2022-11-02] MEDS: Folic Acid 0.4 MG in Admixture Fee 1 EACH SC SCH (11:01)
[2022-11-02] MEDS: Thiamine HCl 200 MG/2 ML VIAL SLOW IVP SCH (11:01)
[2022-11-02] MEDS: Folic Acid 0.4 MG in Admixture Fee 1 EACH IVP SCH (11:17)
[2022-11-02 13:02] LABS: ALV-art Gradient 109.275 mmHg (0-20); Actual Bicarbonate (HCO3a) 16.5 mEq/L (22-28); Base Excess (BEa) -8.5 mEq/L (-2.0 to +3.0); CO2 Tension 32.5 mmHg (35.0-45.0); Hemoglobin (Hb) 12.2 g/dL (14.0-18.0); O2 Tension (PaO2), arterial 206.6 mmHg (> 70.0); Potassium - ABG Lab 3.59 mmol/L (3.70-5.30); Puncture Site Arterial Line; pH, Arterial 7.32 (7.35-7.45)
[2022-11-02] MEDS: Levalbuterol HCl 0.63 MG/3 ML NEB NEB SCH ×2 (14:16→21:43)
[2022-11-02] MEDS: Heparin 5,000 UNITS/ML VIAL SC SCH ×2 (15:01→20:00)
[2022-11-02] MEDS: Milrinone Lactate/D5W 20 MG in Premix Bag 1 BAG IV SCH (16:02)
[2022-11-02 19:41] LABS: Actual Bicarbonate (HCO3a) 18.9 mEq/L (22-28); Base Excess (BEa) -5.5 mEq/L (-2.0 to +3.0); CO2 Tension 33.1 mmHg (35.0-45.0); Calcium, Ionized (arterial) 1.15 mmol/L (1.12-1.30); Carboxyhemoglobin (COHb) 0.3 gm% (0.0-3.0); Hemoglobin (Hb) 10.5 g/dL (14.0-18.0); Potassium - ABG Lab 3.14 mmol/L (3.70-5.30); pH, Arterial 7.38 (7.35-7.45)
[2022-11-02 19:42] LABS: ALV-art Gradient 111.825 mmHg (0-20); Puncture Site Arterial Line
[2022-11-02] MEDS: Sodium Bicarbonate 150 MEQ in Dextrose 5% in Water 1,000 ML IV SCH (21:11)
[2022-11-02] MEDS ORDERED: Fentanyl CADD 100 ML ONE (22:08)
[2022-11-02] MEDS: Fentanyl CADD 100 ML IV SCH (22:12)
[2022-11-03] MEDS: Hydrocortisone Sod Succ/PF 100 mg/2 ml Vial IVP SCH ×3 (02:13→17:21)
[2022-11-03] MEDS: Milrinone Lactate/D5W 20 MG in Premix Bag 1 BAG IV SCH ×2 (02:13→13:34)
[2022-11-03 05:00] LABS: INR-International Normal Ratio 1.4; PTT 37.9 sec (22.9-36.1); Prothrombin Time 17.2 sec (12.0-14.7)
[2022-11-03] MEDS: Piperacillin/Tazobactam 3.375 GM in Sodium Chloride 0.9% 100 ML IVPB SCH ×3 (05:09→21:14)
[2022-11-03 05:29] LABS: Band 48 % (5-11); Hemoglobin 9.5 g/dL (14.0-18.0); Hypochromia SLIGHT = 6-15 cells (100X) (0-5/hpf); Lymphocytes 4 % (21-51); MDiff Complete? YES; Macrocytosis SLIGHT = 6-15 cells (100X) (0-5/hpf); Mean Corpuscular HGB CONC 32.8 g/dL (32.0-36.0); Mean Corpuscular Hemoglobin 33.9 pg (27.0-31.0); Monocytes 12 % (0-10); Neutrophil 36 % (42-75); Platelet Count 115 10x3/uL (130-400); Platelet Morphology Comment Appears Decreased; RBC Distribution Width 13.3 % (11.5-14.5); Red Blood Cell (RBC) Count 2.81 mill/uL (4.70-6.10); White Blood Cell (WBC) Count 2.4 10x3/uL (4.8-10.8)
[2022-11-03 05:31] LABS: Anion Gap 15 mmol/L (10-20); BUN (Urea Nitrogen) 62 mg/dL (8.4-25.7); Calc. Creatinine Clearance 32 mL/min (70-130); Calcium 8.6 mg/dL (7.8-10.44); Carbon Dioxide 19 mmol/L (23-31); Chloride 108 mmol/L (98-107); Estimated GFR 32; Glucose 202 mg/dL (83-110); Magnesium 2.1 mg/dL (1.6-2.6); Phosphorus 3.1 mg/dL (2.3-4.7); Potassium 2.8 mmol/L (3.5-5.1); Sodium 139 mmol/L (136-145)
[2022-11-03] MEDS ORDERED: Potassium Phosphate 30 MMOL in Sodium Chloride 0.9% 250 ML 250 ML IVPB SCH (06:00)
[2022-11-03] MEDS ORDERED: Potassium Chloride 20 MEQ in Premix Bag 1 BAG IVPB SCH ×2 (07:00→17:15)
[2022-11-03] MEDS: Levalbuterol HCl 0.63 MG/3 ML NEB NEB SCH ×3 (07:56→21:48)
[2022-11-03] MEDS: Heparin 5,000 UNITS/ML VIAL SC SCH ×3 (08:37→20:38)
[2022-11-03] MEDS: Thiamine HCl 200 MG/2 ML VIAL SLOW IVP SCH (08:37)
[2022-11-03] MEDS ORDERED: NOREPINEPHRINE 8 MG/250 ML-D5W 250 ML IVPB SCH (09:00)
[2022-11-03] MEDS: Folic Acid 0.4 MG in Admixture Fee 1 EACH IVP SCH (13:34)
[2022-11-03 16:18] LABS: Phosphorus 3.6 mg/dL (2.3-4.7); Potassium 3.4 mmol/L (3.5-5.1)
[2022-11-03] MEDS: Fentanyl 100 MCG/2 ML VIAL SLOW IVP PRN (17:22)
[2022-11-03] MEDS ORDERED: Metoprolol Tartrate 5 MG/5 ML VIAL ONE (19:28)
[2022-11-03] MEDS ORDERED: Metoprolol Tartrate 5 MG/5 ML VIAL IVP SCH (19:45)
[2022-11-03] MEDS: Sodium Bicarbonate 150 MEQ in Dextrose 5% in Water 1,000 ML IV SCH (20:35)
[2022-11-03] MEDS: Famotidine/PF 20 mg/2ml Vial SLOW IVP SCH (20:38)
[2022-11-04] MEDS: Amiodarone 450 MG, Admixture Fee 1 EACH in Dextrose 5% in Water 250 ML IVPB SCH ×2 (01:12→14:35)
[2022-11-04] MEDS: Hydrocortisone Sod Succ/PF 100 mg/2 ml Vial IVP SCH ×3 (01:12→18:09)
[2022-11-04 04:28] LABS: #Lymphocytes 0.3 thou/uL (1.20-3.40); #Monocytes 0.4 thou/uL (0.11-0.59); #Neutrophils 4.8 thou/uL (1.40-6.50); %Basophils 0.7 % (0.0-1.0); %Eosinophils 0.1 % (0.0-10.0); %Monocytes 6.8 % (0.0-10.0); %Neutrophils 86.4 % (42.0-75.0); Hemoglobin 9.8 g/dL (14.0-18.0); Mean Corpuscular HGB CONC 33.1 g/dL (32.0-36.0); Mean Corpuscular Hemoglobin 33.9 pg (27.0-31.0); Mean Platelet Volume 8.1 fL (7.4-10.4); Platelet Count 117 10x3/uL (130-400); RBC Distribution Width 13.3 % (11.5-14.5); White Blood Cell (WBC) Count 5.5 10x3/uL (4.8-10.8)
[2022-11-04 04:39] LABS: Lactic Acid 1.1 mmol/L (0.5-2.2)
[2022-11-04 04:45] LABS: Anion Gap 16 mmol/L (10-20); BUN (Urea Nitrogen) 61 mg/dL (8.4-25.7); Calc. Creatinine Clearance 30 mL/min (70-130); Calcium 8.5 mg/dL (7.8-10.44); Carbon Dioxide 22 mmol/L (23-31); Chloride 108 mmol/L (98-107); Estimated GFR 29; Glucose 191 mg/dL (83-110); Magnesium 2.2 mg/dL (1.6-2.6); Phosphorus 3.4 mg/dL (2.3-4.7); Potassium 3.6 mmol/L (3.5-5.1); Sodium 142 mmol/L (136-145)
[2022-11-04] MEDS: Fentanyl 100 MCG/2 ML VIAL SLOW IVP PRN (05:00)
[2022-11-04] MEDS: Piperacillin/Tazobactam 3.375 GM in Sodium Chloride 0.9% 100 ML IVPB SCH ×3 (05:02→22:24)
[2022-11-04] MEDS ORDERED: Potassium Chloride 20 MEQ in Premix Bag 1 BAG IVPB SCH (07:30)
[2022-11-04] MEDS: Levalbuterol HCl 0.63 MG/3 ML NEB NEB SCH ×3 (07:40→22:41)
[2022-11-04] MEDS ORDERED: Norepinephrine 4 MG/4 ML VIAL ONE (07:53)
[2022-11-04] MEDS ORDERED: Fentanyl 250 MCG/5 ML VIAL ONE (07:53)
[2022-11-04] MEDS ORDERED: Ketamine 50 MG/ML (10ML VIAL) ONE ×2 (08:07→08:22)
[2022-11-04] MEDS ORDERED: Midazolam HCl 5 mg/5 ml Vial ONE (08:11)
[2022-11-04] MEDS ORDERED: Succinylcholine Chloride 100 MG/5 ML SYRINGE FS ONE (08:51)
[2022-11-04] MEDS ORDERED: Vecuronium 10 MG VIAL ONE (08:51)
[2022-11-04] MEDS ORDERED: Rocuronium Bromide 10 MG/ML (10ML VIAL) ONE (08:51)
[2022-11-04 11:36] LABS: Actual Bicarbonate (HCO3a) 22.8 mEq/L (22-28); Base Excess (BEa) -0.8 mEq/L (-2.0 to +3.0); Calcium, Ionized (arterial) 1.07 mmol/L (1.12-1.30); Carboxyhemoglobin (COHb) 0.3 gm% (0.0-3.0); O2 Tension (PaO2), arterial 111.4 mmHg (> 70.0); Potassium - ABG Lab 3.13 mmol/L (3.70-5.30); pH, Arterial 7.44 (7.35-7.45)
[2022-11-04 11:37] LABS: Puncture Site Arterial Line
[2022-11-04] MEDS: Thiamine HCl 200 MG/2 ML VIAL SLOW IVP SCH (11:50)
[2022-11-04] MEDS: Heparin 5,000 UNITS/ML VIAL SC SCH ×3 (11:50→20:28)
[2022-11-04] MEDS: Fentanyl CADD 100 ML IV SCH (12:18)
[2022-11-04] MEDS: Folic Acid 0.4 MG in Admixture Fee 1 EACH IVP SCH (13:15)
[2022-11-04] MEDS: Milrinone Lactate/D5W 20 MG in Premix Bag 1 BAG IV SCH (14:35)
[2022-11-04] MEDS: Sodium Bicarbonate 150 MEQ in Dextrose 5% in Water 1,000 ML IV SCH (15:33)
[2022-11-04] MEDS ORDERED: Calcium Chloride 1 GM/10 ML Abboject SYRINGE IVP SCH (18:15)
[2022-11-04] MEDS: Famotidine/PF 20 mg/2ml Vial SLOW IVP SCH (20:28)
[2022-11-05] MEDS: Hydrocortisone Sod Succ/PF 100 mg/2 ml Vial IVP SCH ×3 (02:36→17:39)
[2022-11-05 05:14] LABS: Lactic Acid 0.8 mmol/L (0.5-2.2)
[2022-11-05] MEDS: Piperacillin/Tazobactam 3.375 GM in Sodium Chloride 0.9% 100 ML IVPB SCH ×3 (05:20→21:54)
[2022-11-05 05:27] LABS: Anion Gap 16 mmol/L (10-20); BUN (Urea Nitrogen) 52 mg/dL (8.4-25.7); Calc. Creatinine Clearance 37 mL/min (70-130); Calcium 8.5 mg/dL (7.8-10.44); Carbon Dioxide 23 mmol/L (23-31); Chloride 109 mmol/L (98-107); Estimated GFR 38; Glucose 180 mg/dL (83-110); Magnesium 2.2 mg/dL (1.6-2.6); Phosphorus 2.6 mg/dL (2.3-4.7); Potassium 3.6 mmol/L (3.5-5.1); Sodium 144 mmol/L (136-145)
[2022-11-05 05:29] LABS: Band 56 % (5-11); Lymphocytes 6 % (21-51); MDiff Complete? YES; Macrocytosis SLIGHT = 6-15 cells (100X) (0-5/hpf); Mean Corpuscular Hemoglobin 33.7 pg (27.0-31.0); Mean Platelet Volume 8.4 fL (7.4-10.4); Metamyelocyte 1 % (0-0); Monocytes 4 % (0-10); Myelocyte 2 % (0-0); Neutrophil 30 % (42-75); Ovalocytes SLIGHT = 2-5 cells (100X) (0-1/hpf); Platelet Count 139 10x3/uL (130-400); Platelet Morphology Comment Appears Adequate; Polychromasia SLIGHT = 2-3 cells (100X) (0-2/hpf); RBC Distribution Width 13.3 % (11.5-14.5); Reactive Lymphocytes 1 % (0-10); Red Blood Cell (RBC) Count 3.26 mill/uL (4.70-6.10); White Blood Cell (WBC) Count 6.3 10x3/uL (4.8-10.8)
[2022-11-05] MEDS ORDERED: Potassium Chloride 40 MEQ in Premix Bag 1 BAG IVPB SCH (07:15)
[2022-11-05] MEDS: Heparin 5,000 UNITS/ML VIAL SC SCH ×3 (07:41→20:53)
[2022-11-05] MEDS: Thiamine HCl 200 MG/2 ML VIAL SLOW IVP SCH (07:41)
[2022-11-05] MEDS: Amiodarone 450 MG, Admixture Fee 1 EACH in Dextrose 5% in Water 250 ML IVPB SCH ×2 (07:42→23:05)
[2022-11-05] MEDS: Levalbuterol HCl 0.63 MG/3 ML NEB NEB SCH ×3 (08:00→18:42)
[2022-11-05 08:13] LABS: Actual Bicarbonate (HCO3a) 25.6 mEq/L (22-28); Base Excess (BEa) 1.9 mEq/L (-2.0 to +3.0); Calcium, Ionized (arterial) 1.11 mmol/L (1.12-1.30); Carboxyhemoglobin (COHb) 0.5 gm% (0.0-3.0); Hemoglobin (Hb) 11.7 g/dL (14.0-18.0); O2 Tension (PaO2), arterial 148.4 mmHg (> 70.0); Potassium - ABG Lab 3.48 mmol/L (3.70-5.30); pH, Arterial 7.46 (7.35-7.45)
[2022-11-05 08:24] LABS: Puncture Site Arterial Line
[2022-11-05] MEDS ORDERED: Calcium Chloride 1 GM/10 ML Abboject SYRINGE IVP SCH (08:30)
[2022-11-05] MEDS: Folic Acid 0.4 MG in Admixture Fee 1 EACH IVP SCH (09:12)
[2022-11-05] MEDS ORDERED: diphenhydrAMINE 50 MG/ML VIAL IM PRN (10:20)
[2022-11-05] MEDS ORDERED: diphenhydrAMINE 25 MG CAP PO PRN (10:20)
[2022-11-05] MEDS ORDERED: HYDROmorphone 10 mg/100 ml CADD IVPB PRN (10:20)
[2022-11-05] MEDS ORDERED: Zolpidem Tartrate 5 MG TAB PO PRN (10:20)
[2022-11-05] MEDS ORDERED: Promethazine HCl 25 MG/ML VIAL IM PRN (10:20)
[2022-11-05] MEDS ORDERED: diphenhydrAMINE 50 MG/ML VIAL IVP PRN (10:20)
[2022-11-05] MEDS ORDERED: Ondansetron PF 4 MG/2 ML Vial IVP PRN (10:20)
[2022-11-05] MEDS ORDERED: Naloxone HCl 0.4 mg/ml Vial IV PRN (10:20)
[2022-11-05] MEDS ORDERED: Communication Order-Pharmacy FS PRN (10:30)
[2022-11-05] MEDS ORDERED: HYDROmorphone/PF 10 MG in Sodium Chloride 0.9% 99 ML IVPB PRN ×2 (10:45→11:04)
[2022-11-05] MEDS ORDERED: Morphine 4 MG/ML VIAL SLOW IVP PRN (12:08)
[2022-11-05] MEDS ORDERED: Acetaminophen 500 MG TAB PO SCH (12:15)
[2022-11-05] MEDS: Milrinone Lactate/D5W 20 MG in Premix Bag 1 BAG IV SCH (13:47)
[2022-11-05] MEDS: Acetaminophen 500 MG TAB PO SCH (17:38)
[2022-11-05] MEDS: Carvedilol 3.125 MG TAB PO SCH (20:51)
[2022-11-05] MEDS: Pantoprazole 40 MG VIAL IVP SCH (20:51)
[2022-11-06] MEDS: Acetaminophen 500 MG TAB PO SCH ×5 (00:35→23:40)
[2022-11-06] MEDS: Hydrocortisone Sod Succ/PF 100 mg/2 ml Vial IVP SCH ×3 (02:02→18:03)
[2022-11-06] MEDS: Morphine 2 MG/ML VIAL SLOW IVP PRN ×3 (02:06→21:06)
[2022-11-06 04:44] LABS: #Lymphocytes 0.5 thou/uL (1.20-3.40); #Monocytes 0.6 thou/uL (0.11-0.59); #Neutrophils 6.3 thou/uL (1.40-6.50); %Eosinophils 0.3 % (0.0-10.0); %Lymphocytes 6.2 % (21.0-51.0); %Monocytes 8.3 % (0.0-10.0); %Neutrophils 85.2 % (42.0-75.0); Hemoglobin 9.9 g/dL (14.0-18.0); Mean Corpuscular HGB CONC 32.9 g/dL (32.0-36.0); Mean Corpuscular Hemoglobin 33.9 pg (27.0-31.0); Mean Platelet Volume 8.1 fL (7.4-10.4); Platelet Count 128 10x3/uL (130-400); RBC Distribution Width 13.4 % (11.5-14.5); Red Blood Cell (RBC) Count 2.93 mill/uL (4.70-6.10); White Blood Cell (WBC) Count 7.4 10x3/uL (4.8-10.8)
[2022-11-06 04:51] LABS: Lactic Acid 0.9 mmol/L (0.5-2.2)
[2022-11-06 04:56] LABS: Anion Gap 12 mmol/L (10-20); BUN (Urea Nitrogen) 50 mg/dL (8.4-25.7); Calc. Creatinine Clearance 40 mL/min (70-130); Calcium 8.6 mg/dL (7.8-10.44); Carbon Dioxide 26 mmol/L (23-31); Chloride 111 mmol/L (98-107); Estimated GFR 41; Glucose 156 mg/dL (83-110); Magnesium 2.1 mg/dL (1.6-2.6); Phosphorus 2.2 mg/dL (2.3-4.7); Potassium 3.9 mmol/L (3.5-5.1); Sodium 145 mmol/L (136-145)
[2022-11-06] MEDS: Levothyroxine Sodium 50 MCG TAB PO SCH (05:49)
[2022-11-06] MEDS: Piperacillin/Tazobactam 3.375 GM in Sodium Chloride 0.9% 100 ML IVPB SCH ×3 (05:49→21:07)
[2022-11-06] MEDS: Levalbuterol HCl 0.63 MG/3 ML NEB NEB SCH ×3 (07:26→21:53)
[2022-11-06] MEDS ORDERED: Potassium Phosphate 15 MMOL in Sodium Chloride 0.9% 100 ML IVPB SCH (08:00)
[2022-11-06] MEDS: Pantoprazole 40 MG VIAL IVP SCH ×2 (08:24→21:07)
[2022-11-06] MEDS: Heparin 5,000 UNITS/ML VIAL SC SCH ×3 (08:24→21:05)
[2022-11-06] MEDS: Amiodarone 200 MG TAB PER TUBE SCH ×2 (08:24→21:04)
[2022-11-06] MEDS: Carvedilol 3.125 MG TAB PO SCH ×2 (08:36→21:04)
[2022-11-06] MEDS: Thiamine HCl 200 MG/2 ML VIAL SLOW IVP SCH (09:50)
[2022-11-06] MEDS: Folic Acid 0.4 MG in Admixture Fee 1 EACH IVP SCH (12:17)
[2022-11-07] MEDS: Hydrocortisone Sod Succ/PF 100 mg/2 ml Vial IVP SCH ×3 (01:48→21:08)
[2022-11-07 04:50] LABS: #Lymphocytes 0.5 thou/uL (1.20-3.40); #Monocytes 0.4 thou/uL (0.11-0.59); #Neutrophils 7.6 thou/uL (1.40-6.50); %Basophils 0.1 % (0.0-1.0); %Eosinophils 0.4 % (0.0-10.0); %Monocytes 4.6 % (0.0-10.0); %Neutrophils 88.9 % (42.0-75.0); Hemoglobin 11.1 g/dL (14.0-18.0); Mean Corpuscular Hemoglobin 33.1 pg (27.0-31.0); Mean Platelet Volume 8.2 fL (7.4-10.4); Platelet Count 150 10x3/uL (130-400); RBC Distribution Width 13.6 % (11.5-14.5); Red Blood Cell (RBC) Count 3.34 mill/uL (4.70-6.10); White Blood Cell (WBC) Count 8.6 10x3/uL (4.8-10.8)
[2022-11-07 05:10] LABS: Anion Gap 14 mmol/L (10-20); BUN (Urea Nitrogen) 49 mg/dL (8.4-25.7); Calc. Creatinine Clearance 43 mL/min (70-130); Calcium 8.4 mg/dL (7.8-10.44); Carbon Dioxide 25 mmol/L (23-31); Chloride 111 mmol/L (98-107); Estimated GFR 44; Glucose 160 mg/dL (83-110); Magnesium 2.2 mg/dL (1.6-2.6); Potassium 3.8 mmol/L (3.5-5.1); Sodium 146 mmol/L (136-145)
[2022-11-07] MEDS: Acetaminophen 500 MG TAB PO SCH ×3 (05:47→18:10)
[2022-11-07] MEDS: Levothyroxine Sodium 50 MCG TAB PO SCH (05:48)
[2022-11-07] MEDS: Piperacillin/Tazobactam 3.375 GM in Sodium Chloride 0.9% 100 ML IVPB SCH ×3 (05:48→23:12)
[2022-11-07] MEDS ORDERED: Morphine 4 MG/ML VIAL SLOW IVP PRN (07:23)
[2022-11-07] MEDS ORDERED: traMADol HCl 50 MG TAB PO PRN ×2 (07:23)
[2022-11-07] MEDS ORDERED: Potassium Bicarbonate/Cit Ac 20 MEQ TAB PO SCH (07:30)
[2022-11-07] MEDS: Levalbuterol HCl 0.63 MG/3 ML NEB NEB SCH ×3 (07:48→23:21)
[2022-11-07] MEDS ORDERED: Furosemide 20 MG/2 ML VIAL SLOW IVP SCH (09:00)
[2022-11-07] MEDS: Heparin 5,000 UNITS/ML VIAL SC SCH ×3 (09:04→21:07)
[2022-11-07] MEDS: Carvedilol 3.125 MG TAB PO SCH ×2 (09:13→21:07)
[2022-11-07] MEDS: Amiodarone 200 MG TAB PER TUBE SCH ×2 (09:16→21:07)
[2022-11-07] MEDS: Thiamine HCl 200 MG/2 ML VIAL SLOW IVP SCH (09:18)
[2022-11-07] MEDS: Pantoprazole 40 MG VIAL IVP SCH ×2 (09:33→21:08)
[2022-11-07] MEDS: Folic Acid 0.4 MG in Admixture Fee 1 EACH IVP SCH (11:16)
[2022-11-07] MEDS: hydrALAZINE 25 MG TAB PER TUBE SCH ×3 (11:17→21:07)
[2022-11-07 14:03] LABS: Analyzer IN Cardio OR; Base Excess (BEa) -9.9 mEq/L (-2.0 to +3.0); CO2 Tension 40.6 mmHg (35.0-45.0); Calcium, Ionized (arterial) 1.06 mmol/L (1.12-1.30); Carboxyhemoglobin (COHb) 0.5 gm% (0.0-3.0); Hemoglobin (Hb) 13.8 g/dL (14.0-18.0); O2 Tension (PaO2), arterial 264.3 mmHg (> 70.0); Potassium - ABG Lab 3.51 mmol/L (3.70-5.30); pH, Arterial 7.24 (7.35-7.45)
[2022-11-07 14:03] LABS: Actual Bicarbonate (HCO3a) 18.1 mEq/L (22-28); Analyzer IN Cardio OR; Base Excess (BEa) -8.8 mEq/L (-2.0 to +3.0); CO2 Tension 42.6 mmHg (35.0-45.0); Calcium, Ionized (arterial) 1.12 mmol/L (1.12-1.30); Carboxyhemoglobin (COHb) 0.7 gm% (0.0-3.0); Hemoglobin (Hb) 14.8 g/dL (14.0-18.0); O2 Tension (PaO2), arterial 170.7 mmHg (> 70.0); Potassium - ABG Lab 3.65 mmol/L (3.70-5.30); pH, Arterial 7.25 (7.35-7.45)
[2022-11-07 14:04] LABS: Puncture Site Arterial Line
[2022-11-07 14:04] LABS: Puncture Site Arterial Line
[2022-11-08] MEDS: Acetaminophen 500 MG TAB PO SCH ×4 (00:58→20:55)
[2022-11-08 03:54] LABS: #Lymphocytes 0.6 thou/uL (1.20-3.40); #Monocytes 0.3 thou/uL (0.11-0.59); #Neutrophils 9.3 thou/uL (1.40-6.50); %Basophils 0.2 % (0.0-1.0); %Eosinophils 0.3 % (0.0-10.0); %Lymphocytes 5.8 % (21.0-51.0); %Monocytes 2.6 % (0.0-10.0); %Neutrophils 91.1 % (42.0-75.0); Hemoglobin 10.7 g/dL (14.0-18.0); Mean Corpuscular HGB CONC 31.7 g/dL (32.0-36.0); Mean Corpuscular Hemoglobin 32.7 pg (27.0-31.0); Mean Platelet Volume 7.6 fL (7.4-10.4); Platelet Count 183 10x3/uL (130-400); RBC Distribution Width 13.4 % (11.5-14.5); Red Blood Cell (RBC) Count 3.28 mill/uL (4.70-6.10); White Blood Cell (WBC) Count 10.2 10x3/uL (4.8-10.8)
[2022-11-08 04:18] LABS: Anion Gap 13 mmol/L (10-20); BUN (Urea Nitrogen) 43 mg/dL (8.4-25.7); Calc. Creatinine Clearance 50 mL/min (70-130); Calcium 7.9 mg/dL (7.8-10.44); Carbon Dioxide 25 mmol/L (23-31); Chloride 110 mmol/L (98-107); Estimated GFR 53; Glucose 177 mg/dL (83-110); Magnesium 1.9 mg/dL (1.6-2.6); Potassium 3.3 mmol/L (3.5-5.1); Sodium 145 mmol/L (136-145)
[2022-11-08] MEDS: Piperacillin/Tazobactam 3.375 GM in Sodium Chloride 0.9% 100 ML IVPB SCH ×3 (05:23→20:52)
[2022-11-08] MEDS: Levothyroxine Sodium 50 MCG TAB PO SCH (05:25)
[2022-11-08] MEDS: Levalbuterol HCl 0.63 MG/3 ML NEB NEB SCH ×3 (07:34→23:40)
[2022-11-08] MEDS: Heparin 5,000 UNITS/ML VIAL SC SCH ×3 (08:20→20:54)
[2022-11-08] MEDS: Pantoprazole 40 MG VIAL IVP SCH ×2 (08:20→20:55)
[2022-11-08] MEDS: Carvedilol 3.125 MG TAB PO SCH ×2 (08:20→20:53)
[2022-11-08] MEDS: hydrALAZINE 25 MG TAB PER TUBE SCH ×3 (08:20→20:54)
[2022-11-08] MEDS: Amiodarone 200 MG TAB PER TUBE SCH ×2 (08:20→20:54)
[2022-11-08] MEDS ORDERED: Potassium Phosphate 30 MMOL in Sodium Chloride 0.9% 250 ML 250 ML IVPB SCH (09:00)
[2022-11-08] MEDS: Thiamine 100 MG TAB PO SCH (13:09)
[2022-11-08] MEDS: Folic Acid 1 MG TAB PO SCH (13:09)
[2022-11-08] MEDS: Hydrocortisone Sod Succ/PF 100 mg/2 ml Vial IVP SCH (16:10)
[2022-11-08] MEDS: Thiamine HCl 200 MG/2 ML VIAL SLOW IVP SCH (16:10)
[2022-11-09] MEDS: Acetaminophen 500 MG TAB PO SCH ×4 (02:38→18:08)
[2022-11-09] MEDS: Levothyroxine Sodium 50 MCG TAB PO SCH (05:39)
[2022-11-09] MEDS: Piperacillin/Tazobactam 3.375 GM in Sodium Chloride 0.9% 100 ML IVPB SCH (05:39)
[2022-11-09 06:07] LABS: #Lymphocytes 0.8 thou/uL (1.20-3.40); #Monocytes 0.4 thou/uL (0.11-0.59); %Basophils 0.1 % (0.0-1.0); %Eosinophils 0.5 % (0.0-10.0); %Lymphocytes 8.9 % (21.0-51.0); %Monocytes 4.6 % (0.0-10.0); %Neutrophils 85.9 % (42.0-75.0); Hemoglobin 10.4 g/dL (14.0-18.0); Mean Corpuscular Hemoglobin 33.7 pg (27.0-31.0); Mean Platelet Volume 7.4 fL (7.4-10.4); Platelet Count 223 10x3/uL (130-400); RBC Distribution Width 13.5 % (11.5-14.5); Red Blood Cell (RBC) Count 3.09 mill/uL (4.70-6.10); White Blood Cell (WBC) Count 9.3 10x3/uL (4.8-10.8)
[2022-11-09 06:21] LABS: Anion Gap 14 mmol/L (10-20); BUN (Urea Nitrogen) 34 mg/dL (8.4-25.7); Calc. Creatinine Clearance 57 mL/min (70-130); Calcium 7.5 mg/dL (7.8-10.44); Carbon Dioxide 24 mmol/L (23-31); Chloride 108 mmol/L (98-107); Estimated GFR 65; Glucose 166 mg/dL (83-110); Magnesium 1.7 mg/dL (1.6-2.6); Phosphorus 1.8 mg/dL (2.3-4.7); Potassium 3.3 mmol/L (3.5-5.1); Sodium 143 mmol/L (136-145)
[2022-11-09] MEDS ORDERED: Magnesium 2 GM/50 ML(in water) 2 GM in Premix Bag 1 BAG IVPB SCH (07:30)
[2022-11-09] MEDS ORDERED: Potassium Phosphate 30 MMOL in Sodium Chloride 0.9% 250 ML 250 ML IVPB SCH (07:30)
[2022-11-09] MEDS: Levalbuterol HCl 0.63 MG/3 ML NEB NEB SCH ×3 (08:45→21:26)
[2022-11-09] MEDS: Thiamine 100 MG TAB PO SCH (10:06)
[2022-11-09] MEDS: Furosemide 20 MG TAB PO SCH (10:06)
[2022-11-09] MEDS: Pantoprazole 40 MG VIAL IVP SCH ×2 (10:06→21:23)
[2022-11-09] MEDS: Heparin 5,000 UNITS/ML VIAL SC SCH ×3 (10:06→21:22)
[2022-11-09] MEDS: Folic Acid 1 MG TAB PO SCH (10:07)
[2022-11-09] MEDS: Amiodarone 200 MG TAB PER TUBE SCH ×2 (10:07→21:27)
[2022-11-09] MEDS: Saccharomyces boulardii 250 MG CAP PO SCH (10:07)
[2022-11-09] MEDS: Carvedilol 3.125 MG TAB PO SCH ×2 (10:07→21:27)
[2022-11-09] MEDS: hydrALAZINE 25 MG TAB PER TUBE SCH ×3 (10:07→21:25)
[2022-11-10] MEDS: Acetaminophen 500 MG TAB PO SCH ×5 (00:41→23:19)
[2022-11-10] MEDS: Levothyroxine Sodium 50 MCG TAB PO SCH (06:13)
[2022-11-10 06:42] LABS: Anion Gap 11 mmol/L (10-20); BUN (Urea Nitrogen) 28 mg/dL (8.4-25.7); Calc. Creatinine Clearance 62 mL/min (70-130); Calcium 7.9 mg/dL (7.8-10.44); Carbon Dioxide 27 mmol/L (23-31); Chloride 106 mmol/L (98-107); Estimated GFR 75; Glucose 111 mg/dL (83-110); Magnesium 1.8 mg/dL (1.6-2.6); Phosphorus 2.7 mg/dL (2.3-4.7); Potassium 3.5 mmol/L (3.5-5.1); Sodium 140 mmol/L (136-145)
[2022-11-10] MEDS: Levalbuterol HCl 0.63 MG/3 ML NEB NEB SCH ×3 (06:57→22:59)
[2022-11-10] MEDS: Pantoprazole 40 MG VIAL IVP SCH ×2 (09:43→20:40)
[2022-11-10] MEDS: Saccharomyces boulardii 250 MG CAP PO SCH (09:44)
[2022-11-10] MEDS: Heparin 5,000 UNITS/ML VIAL SC SCH ×3 (09:44→20:39)
[2022-11-10] MEDS: hydrALAZINE 25 MG TAB PER TUBE SCH ×3 (09:44→20:39)
[2022-11-10] MEDS: Folic Acid 1 MG TAB PO SCH (09:44)
[2022-11-10] MEDS: Furosemide 20 MG TAB PO SCH (09:44)
[2022-11-10] MEDS: Carvedilol 3.125 MG TAB PO SCH ×2 (09:44→20:39)
[2022-11-10] MEDS: Amiodarone 200 MG TAB PER TUBE SCH ×2 (09:44→20:39)
[2022-11-10] MEDS: Thiamine 100 MG TAB PO SCH (09:44)
[2022-11-10] MEDS ORDERED: Magnesium 2 GM/50 ML(in water) 2 GM in Premix Bag 1 BAG IVPB SCH (10:00)
[2022-11-10] MEDS ORDERED: Potassium Phosphate 30 MMOL in Sodium Chloride 0.9% 250 ML 250 ML IVPB SCH (11:00)
[2022-11-11] MEDS: Levothyroxine Sodium 50 MCG TAB PO SCH (05:57)
[2022-11-11] MEDS: Acetaminophen 500 MG TAB PO SCH ×3 (05:57→17:54)
[2022-11-11 06:55] LABS: Anion Gap 12 mmol/L (10-20); BUN (Urea Nitrogen) 21 mg/dL (8.4-25.7); Calc. Creatinine Clearance 72 mL/min (70-130); Calcium 7.9 mg/dL (7.8-10.44); Carbon Dioxide 24 mmol/L (23-31); Chloride 105 mmol/L (98-107); Estimated GFR 89; Glucose 88 mg/dL (83-110); Magnesium 1.9 mg/dL (1.6-2.6); Phosphorus 2.7 mg/dL (2.3-4.7); Potassium 3.8 mmol/L (3.5-5.1); Sodium 137 mmol/L (136-145)
[2022-11-11] MEDS: Levalbuterol HCl 0.63 MG/3 ML NEB NEB SCH ×3 (07:34→21:41)
[2022-11-11] MEDS: Pantoprazole 40 MG VIAL IVP SCH ×2 (09:42→21:14)
[2022-11-11] MEDS: hydrALAZINE 25 MG TAB PER TUBE SCH ×3 (09:42→22:44)
[2022-11-11] MEDS: Heparin 5,000 UNITS/ML VIAL SC SCH ×3 (09:43→21:15)
[2022-11-11] MEDS: Furosemide 20 MG TAB PO SCH (09:43)
[2022-11-11] MEDS: Saccharomyces boulardii 250 MG CAP PO SCH (09:43)
[2022-11-11] MEDS: Carvedilol 3.125 MG TAB PO SCH ×2 (09:43→22:46)
[2022-11-11] MEDS: Thiamine 100 MG TAB PO SCH (09:43)
[2022-11-11] MEDS: Folic Acid 1 MG TAB PO SCH (09:43)
[2022-11-11] MEDS: Amiodarone 200 MG TAB PER TUBE SCH ×2 (09:43→21:14)
[2022-11-12] MEDS: Acetaminophen 500 MG TAB PO SCH ×4 (00:59→18:11)
[2022-11-12] MEDS ORDERED: Sodium Chloride 0.9% 250 ML IVPB SCH (05:30)
[2022-11-12] MEDS: Levothyroxine Sodium 50 MCG TAB PO SCH (05:45)
[2022-11-12] MEDS ORDERED: Sodium Chloride 0.9% 250 ML 250 ML IVPB SCH (05:45)
[2022-11-12] MEDS: Levalbuterol HCl 0.63 MG/3 ML NEB NEB SCH ×3 (08:27→22:50)
[2022-11-12] MEDS: Folic Acid 1 MG TAB PO SCH (09:51)
[2022-11-12] MEDS: Thiamine 100 MG TAB PO SCH (09:51)
[2022-11-12] MEDS: Furosemide 20 MG TAB PO SCH (09:51)
[2022-11-12] MEDS: Pantoprazole 40 MG VIAL IVP SCH ×2 (09:52→21:19)
[2022-11-12] MEDS: Amiodarone 200 MG TAB PER TUBE SCH ×2 (09:52→21:17)
[2022-11-12] MEDS: hydrALAZINE 25 MG TAB PER TUBE SCH ×3 (09:52→22:37)
[2022-11-12] MEDS: Saccharomyces boulardii 250 MG CAP PO SCH (09:52)
[2022-11-12] MEDS: Carvedilol 3.125 MG TAB PO SCH ×2 (09:52→21:17)
[2022-11-12] MEDS: Heparin 5,000 UNITS/ML VIAL SC SCH ×3 (09:53→21:17)
[2022-11-12] MEDS ORDERED: Diltiazem 125 MG in Sodium Chloride 0.9% 100 ML IVPB SCH (10:00)
[2022-11-12 10:07] LABS: #Eosinphils 0.1 thou/uL (0.0-0.7); #Lymphocytes 0.9 thou/uL (1.20-3.40); #Monocytes 0.6 thou/uL (0.11-0.59); #Neutrophils 9.2 thou/uL (1.40-6.50); %Basophils 0.2 % (0.0-1.0); %Eosinophils 0.9 % (0.0-10.0); %Lymphocytes 8.1 % (21.0-51.0); %Monocytes 5.7 % (0.0-10.0); Hemoglobin 12.9 g/dL (14.0-18.0); Mean Corpuscular HGB CONC 32.2 g/dL (32.0-36.0); Mean Corpuscular Hemoglobin 33.1 pg (27.0-31.0); Mean Platelet Volume 7.2 fL (7.4-10.4); Platelet Count 346 10x3/uL (130-400); RBC Distribution Width 13.8 % (11.5-14.5); Red Blood Cell (RBC) Count 3.89 mill/uL (4.70-6.10); White Blood Cell (WBC) Count 10.8 10x3/uL (4.8-10.8)
[2022-11-12 11:11] LABS: Anion Gap 17 mmol/L (10-20); BUN (Urea Nitrogen) 20 mg/dL (8.4-25.7); Calc. Creatinine Clearance 67 mL/min (70-130); Calcium 8.6 mg/dL (7.8-10.44); Carbon Dioxide 19 mmol/L (23-31); Chloride 104 mmol/L (98-107); Estimated GFR 89; Glucose 81 mg/dL (83-110); Magnesium 1.7 mg/dL (1.6-2.6); Phosphorus 2.7 mg/dL (2.3-4.7); Potassium 3.7 mmol/L (3.5-5.1); Sodium 136 mmol/L (136-145)
[2022-11-12] MEDS ORDERED: Magnesium 2 GM/50 ML(in water) 2 GM in Premix Bag 1 BAG IVPB SCH (14:00)
[2022-11-12] MEDS ORDERED: Potassium Phosphate 15 MMOL in Sodium Chloride 0.9% 250 ML 250 ML IVPB SCH (14:00)
[2022-11-12 16:32] LABS: #Eosinphils 0.1 thou/uL (0.0-0.7); #Lymphocytes 0.8 thou/uL (1.20-3.40); #Monocytes 0.6 thou/uL (0.11-0.59); #Neutrophils 7.5 thou/uL (1.40-6.50); %Lymphocytes 9.1 % (21.0-51.0); %Monocytes 6.2 % (0.0-10.0); %Neutrophils 83.7 % (42.0-75.0); Hemoglobin 12.3 g/dL (14.0-18.0); Mean Corpuscular HGB CONC 32.6 g/dL (32.0-36.0); Mean Corpuscular Hemoglobin 33.5 pg (27.0-31.0); Mean Platelet Volume 6.6 fL (7.4-10.4); Platelet Count 390 10x3/uL (130-400); RBC Distribution Width 13.7 % (11.5-14.5); Red Blood Cell (RBC) Count 3.68 mill/uL (4.70-6.10); White Blood Cell (WBC) Count 8.9 10x3/uL (4.8-10.8)
[2022-11-12 16:49] LABS: Anion Gap 13 mmol/L (10-20); BUN (Urea Nitrogen) 20 mg/dL (8.4-25.7); Calc. Creatinine Clearance 66 mL/min (70-130); Calcium 8.1 mg/dL (7.8-10.44); Carbon Dioxide 22 mmol/L (23-31); Chloride 104 mmol/L (98-107); Estimated GFR 86; Glucose 110 mg/dL (83-110); Magnesium 2.1 mg/dL (1.6-2.6); Phosphorus 3.1 mg/dL (2.3-4.7); Potassium 3.7 mmol/L (3.5-5.1); Sodium 135 mmol/L (136-145)
[2022-11-13] MEDS: Acetaminophen 500 MG TAB PO SCH ×4 (00:19→17:09)
[2022-11-13] MEDS: Levothyroxine Sodium 50 MCG TAB PO SCH (05:56)
[2022-11-13 05:57] LABS: Anion Gap 16 mmol/L (10-20); BUN (Urea Nitrogen) 18 mg/dL (8.4-25.7); Calc. Creatinine Clearance 67 mL/min (70-130); Calcium 8.4 mg/dL (7.8-10.44); Carbon Dioxide 21 mmol/L (23-31); Chloride 104 mmol/L (98-107); Estimated GFR 89; Glucose 84 mg/dL (83-110); Magnesium 1.9 mg/dL (1.6-2.6); Phosphorus 2.9 mg/dL (2.3-4.7); Potassium 3.7 mmol/L (3.5-5.1); Sodium 137 mmol/L (136-145)
[2022-11-13] MEDS ORDERED: PHOS-NAK 1 PKT PACK PO SCH (07:30)
[2022-11-13] MEDS ORDERED: Potassium Chloride 20 MEQ TAB PO SCH (07:30)
[2022-11-13] MEDS ORDERED: Diltiazem 125 MG in Sodium Chloride 0.9% 100 ML IVPB SCH (08:40)
[2022-11-13] MEDS: Heparin 5,000 UNITS/ML VIAL SC SCH ×3 (09:45→21:37)
[2022-11-13] MEDS: Furosemide 20 MG TAB PO SCH (09:45)
[2022-11-13] MEDS: Folic Acid 1 MG TAB PO SCH (09:45)
[2022-11-13] MEDS: Thiamine 100 MG TAB PO SCH (09:45)
[2022-11-13] MEDS: Saccharomyces boulardii 250 MG CAP PO SCH (09:46)
[2022-11-13] MEDS: Carvedilol 3.125 MG TAB PO SCH ×2 (09:46→21:36)
[2022-11-13] MEDS: Amiodarone 200 MG TAB PO SCH ×2 (09:46→21:36)
[2022-11-13] MEDS: Pantoprazole 40 MG VIAL IVP SCH ×2 (09:52→21:37)
[2022-11-13] MEDS: Levalbuterol HCl 0.63 MG/3 ML NEB NEB SCH ×3 (09:52→22:01)
[2022-11-14] MEDS: Acetaminophen 500 MG TAB PO SCH ×4 (02:01→17:29)
[2022-11-14] MEDS: Levothyroxine Sodium 50 MCG TAB PO SCH (06:06)
[2022-11-14] MEDS ORDERED: Diltiazem 125 MG in Sodium Chloride 0.9% 100 ML IVPB SCH (08:02)
[2022-11-14] MEDS: Pantoprazole 40 MG VIAL IVP SCH ×2 (09:01→20:34)
[2022-11-14] MEDS: Amiodarone 200 MG TAB PO SCH ×2 (09:02→20:34)
[2022-11-14] MEDS: Aspirin 81 mg Enteric Coated Tablet PO SCH (09:02)
[2022-11-14] MEDS: Folic Acid 1 MG TAB PO SCH (09:02)
[2022-11-14] MEDS: Thiamine 100 MG TAB PO SCH (09:02)
[2022-11-14] MEDS: Carvedilol 3.125 MG TAB PO SCH ×2 (09:02→20:34)
[2022-11-14] MEDS: Furosemide 20 MG TAB PO SCH (09:02)
[2022-11-14] MEDS: Saccharomyces boulardii 250 MG CAP PO SCH (09:02)
[2022-11-14] MEDS: Apixaban 5 MG TAB PO SCH ×2 (09:02→20:34)
[2022-11-14] MEDS: Levalbuterol HCl 0.63 MG/3 ML NEB NEB SCH ×3 (10:06→22:01)
[2022-11-14 12:00] LABS: Anion Gap 14 mmol/L (10-20); BUN (Urea Nitrogen) 16 mg/dL (8.4-25.7); Calc. Creatinine Clearance 60 mL/min (70-130); Calcium 8.3 mg/dL (7.8-10.44); Carbon Dioxide 18 mmol/L (23-31); Chloride 105 mmol/L (98-107); Estimated GFR 83; Glucose 116 mg/dL (83-110); Magnesium 1.7 mg/dL (1.6-2.6); Phosphorus 2.7 mg/dL (2.3-4.7); Potassium 4.1 mmol/L (3.5-5.1); Sodium 133 mmol/L (136-145)
[2022-11-15] MEDS: Acetaminophen 500 MG TAB PO SCH ×5 (00:57→23:04)
[2022-11-15] MEDS: Levothyroxine Sodium 50 MCG TAB PO SCH (06:08)
[2022-11-15] MEDS: Levalbuterol HCl 0.63 MG/3 ML NEB NEB SCH (07:37)
[2022-11-15] MEDS: Thiamine 100 MG TAB PO SCH (09:18)
[2022-11-15] MEDS: Carvedilol 3.125 MG TAB PO SCH ×2 (09:18→20:56)
[2022-11-15] MEDS: Pantoprazole 40 MG VIAL IVP SCH ×2 (09:18→20:56)
[2022-11-15] MEDS: Furosemide 20 MG TAB PO SCH (09:18)
[2022-11-15] MEDS: Aspirin 81 mg Enteric Coated Tablet PO SCH (09:18)
[2022-11-15] MEDS: Apixaban 5 MG TAB PO SCH ×2 (09:18→20:55)
[2022-11-15] MEDS: Saccharomyces boulardii 250 MG CAP PO SCH (09:18)
[2022-11-15] MEDS: Amiodarone 200 MG TAB PO SCH ×2 (09:18→20:55)
[2022-11-15] MEDS: Folic Acid 1 MG TAB PO SCH (09:18)
[2022-11-15 16:51] VITALS: BMI 21.2
[2022-11-16] MEDS: Acetaminophen 500 MG TAB PO SCH (05:29)
[2022-11-16] MEDS: Levothyroxine Sodium 50 MCG TAB PO SCH (05:29)
[2022-11-16] MEDS: Furosemide 20 MG TAB PO SCH (11:21)
[2022-11-16] MEDS: Saccharomyces boulardii 250 MG CAP PO SCH (11:21)
[2022-11-16] MEDS: Folic Acid 1 MG TAB PO SCH (11:22)
[2022-11-16] MEDS: Aspirin 81 mg Enteric Coated Tablet PO SCH (11:22)
[2022-11-16] MEDS: Thiamine 100 MG TAB PO SCH (11:22)
[2022-11-16] MEDS: Apixaban 5 MG TAB PO SCH (11:22)
[2022-11-16] MEDS: Carvedilol 3.125 MG TAB PO SCH (11:22)
[2022-11-16] MEDS: Pantoprazole 40 MG VIAL IVP SCH (11:23)
[2022-11-16] MEDS: Amiodarone 200 MG TAB PO SCH (11:33)
[2022-11-16 11:59] VITALS: BP 110/55; TEMP 98.4
[2022-11-21] MEDS ORDERED: Amiodarone 200 MG TAB PO SCH (09:00)
[2022-12-05] MEDS ORDERED: Amiodarone 200 MG TAB PO SCH (09:00)
== END 2022-11-16 14:15 | DRG 853 ==
LOC: ERS 12:08 → CCU 15:26 → IMCU/EMU 11-07 19:47 → SJJU 11-08 18:34 → SURG A 11-08 19:00 → SJJU 11-08 19:12 → 2NO 11-11 14:53
PROVIDERS: ADMIT Surgery; ATTEND Surgery
PROC: 0DTF0ZZ Resection of Right Large Intestine, Open Approach (ICD-10-PCS; principal; 2022-10-31)
PROC: 0WBF0ZZ Excision of Abdominal Wall, Open Approach (ICD-10-PCS; 2022-10-31)
PROC: 5A1945Z Respiratory Ventilation, 24-96 Consecutive Hours (ICD-10-PCS; 2022-10-31)
PROC: 3E03329 Introduction of Other Anti-infective into Peripheral Vein, Percutaneous Approach (ICD-10-PCS; 2022-10-31)
PROC: 02HV33Z Insertion of Infusion Device into Superior Vena Cava, Percutaneous Approach (ICD-10-PCS; 2022-10-31)
PROC: 3E033XZ Introduction of Vasopressor into Peripheral Vein, Percutaneous Approach (ICD-10-PCS; 2022-10-31)
PROC: 5A2204Z Restoration of Cardiac Rhythm, Single (ICD-10-PCS; 2022-10-31)
PROC: 8E0ZXY6 Isolation (ICD-10-PCS; 2022-10-31)
PROC: 0DBL0ZZ Excision of Transverse Colon, Open Approach (ICD-10-PCS; 2022-11-02)
PROC: 05H533Z Insertion of Infusion Device into Right Subclavian Vein, Percutaneous Approach (ICD-10-PCS; 2022-11-03)
PROC: 3E04329 Introduction of Other Anti-infective into Central Vein, Percutaneous Approach (ICD-10-PCS; 2022-11-03)
PROC: 0D1L0Z4 Bypass Transverse Colon to Cutaneous, Open Approach (ICD-10-PCS; 2022-11-04)
PROC: 0WBF0ZZ Excision of Abdominal Wall, Open Approach (ICD-10-PCS; 2022-11-04)
PROC: 0DHA7UZ Insertion of Feeding Device into Jejunum, Via Natural or Artificial Opening (ICD-10-PCS; 2022-11-04)
DX: A41.9 Sepsis, unspecified organism (principal); K55.039 Acute (reversible) ischemia of large intestine, extent unspecified; R65.21 Severe sepsis with septic shock; U07.1 COVID-19; K55.049 Acute infarction of large intestine, extent unspecified; K65.8 Other peritonitis; I42.8 Other cardiomyopathies; K42.0 Umbilical hernia with obstruction, without gangrene; N17.9 Acute kidney failure, unspecified; E87.20 Acidosis, unspecified; I47.1 Supraventricular tachycardia; D62 Acute posthemorrhagic anemia; I50.22 Chronic systolic (congestive) heart failure; I24.8 Other forms of acute ischemic heart disease; J93.9 Pneumothorax, unspecified; Z66 Do not resuscitate; E03.9 Hypothyroidism, unspecified; I25.10 Atherosclerotic heart disease of native coronary artery without angina pectoris; N40.0 Benign prostatic hyperplasia without lower urinary tract symptoms; I48.0 Paroxysmal atrial fibrillation; F10.10 Alcohol abuse, uncomplicated; E87.6 Hypokalemia; E83.39 Other disorders of phosphorus metabolism; I08.1 Rheumatic disorders of both mitral and tricuspid valves; I45.10 Unspecified right bundle-branch block; K66.8 Other specified disorders of peritoneum; Z91.14 Patient's other noncompliance with medication regimen; Z78.1 Physical restraint status; Z90.89 Acquired absence of other organs; Z79.899 Other long term (current) drug therapy; Z79.01 Long term (current) use of anticoagulants; Z79.890 Hormone replacement therapy; Z82.49 Family history of ischemic heart disease and other diseases of the circulatory system
CPT/HCPCS: 36415; 36416; 36600; 71045; 74018; 74177; 80048; 80053; 82533; 82550; 82553; 82805; 83605; 83615; 83735; 83880; 84100; 84145; 84484; 85025; 85610; 85730; 86140; 86850; 86900; 86901; 87040; 88302; 88307; 92960; 93005; 93010; 93306; 94002; 94003; 94640; 94760; 96360; 96365; 96375; 97139; A4649; C1776; C9113; J0153; J0171; J0282; J1170; J1642; J1644; J1720; J1940; J2250; J2260; J2270; J2272; J2405; J2543; J2704; J3010; J3411; J3475; J3480; J3490; J7030; J7050; J7070; J7614; J7620; P9045; Q9963; Q9967; S0028; U0002

== ENCOUNTER 2023-08-03 10:00 | Outpatient (CLI) | payer MEDICARE ==
[2023-08-03] MEDS ORDERED: Iopamidol 370 76% 100 ML VIAL ONE (13:37)
== END 2023-08-03 10:01 | disposition home or self-care (01) ==
LOC: BICCT 10:00
PROVIDERS: ATTEND Preventive Medicine Preventive Medicine/Occupational Environmental Medicine
DX: K43.2 Incisional hernia without obstruction or gangrene (principal); N30.20 Other chronic cystitis without hematuria; N21.0 Calculus in bladder; I77.811 Abdominal aortic ectasia
CPT/HCPCS: 74177; 82565; Q9967

== ENCOUNTER 2024-06-24 11:18 | Emergency (ER) | payer MEDICARE ==
[~2024-06-24 11:18] MED LIST changes: -GASTROGRAFIN 30 ML BOT ONE; -Iopamidol-370 76% 500 ML 1 ML ONE; +Iopamidol-370 76% 500 ML MDV (1 ML CHARGE) ONE
[2024-06-24 12:00] LABS: #Basophils Less than 0.03 10x3/uL (0.0-0.2); #Eosinophils Less than 0.03 10x3/uL (0.0-0.7); %Basophils 0.2 % (0.0-1.0); %Eosinophils 0.2 % (0.0-10.0); %Lymphocytes 9.4 % (21.0-51.0); %Monocytes 4.1 % (0.0-10.0); %Neutrophils 85.9 % (42.0-75.0); Hematocrit 47.6 % (42.0-52.0); Mean Corpuscular HGB CONC 31.5 g/dL (32.0-36.0); Mean Corpuscular Hemoglobin 32.1 pg (27.0-31.0); Mean Corpuscular Volume 101.7 fL (78.0-98.0); Platelet Count 338 10x3/uL (130-400); RBC Distribution Width 12.6 % (11.5-14.5); Red Blood Cell (RBC) Count 4.68 mill/uL (4.70-6.10)
[2024-06-24] MEDS ORDERED: Dicyclomine 20 MG/2 ML VIAL ONE (12:24)
[2024-06-24 12:29] LABS: Troponin I 0.038 ng/mL (< 0.028)
[2024-06-24 12:33] LABS: ALT (SGPT) 16 U/L (8-55); AST (SGOT) 19 U/L (5-34); Albumin 4.4 g/dL (3.4-4.8); Alkaline Phosphatase 119 U/L (40-110); Anion Gap 18 mmol/L (10-20); BUN (Urea Nitrogen) 15 mg/dL (8.4-25.7); Bilirubin, Total 0.6 mg/dL (0.2-1.2); Calc. Creatinine Clearance 0 mL/min (70-130); Carbon Dioxide 22 mmol/L (23-31); Chloride 104 mmol/L (98-107); Estimated GFR 89; Globulin 3.9 g/dL (2.4-3.5); Glucose 104 mg/dL (83-110); Potassium 4.1 mmol/L (3.5-5.1); Protein, Total 8.3 g/dL (5.8-8.1); Sodium 140 mmol/L (136-145)
[2024-06-24 15:03] LABS: Lactic Acid 1.78 mmol/L (0.5-2.2)
[2024-06-24] MEDS ORDERED: fentaNYL 50 mcg/mL 1 mL Vial ONE (15:21)
[2024-06-24 16:18] LABS: Bilirubin Moderate (Negative); Blood, Urine Large (Negative); Glucose, Urine (Dipstick) Negative (Negative); Ketone, Urine Trace mg/dL (Negative); Leukocyte Large (Negative); Nitrite Positive (Negative); Protein, Urine (Dipstick) > or equal to 300 mg/dL (Neg-Trace); pH, Urine 8.5 (5.0-9.0)
[2024-06-24 16:26] LABS: Clarity Bloody (Clear)
[2024-06-24 16:31] LABS: Bacteria/HPF 4+ HPF (None Seen); RBC/HPF Greater than 50 HPF (0-3)
[2024-06-24 16:33] LABS: CAUTI Indications for Culture Acute Hematuria
[2024-06-24 16:35] LABS: Urine Culture Reflex No No
[2024-06-24] MEDS ORDERED: Sodium Chloride 0.9% 100 ML ONE (17:11)
[2024-06-24] MEDS ORDERED: cefTRIAXone (ROCEPHIN) 1 GM VIAL ONE (17:11)
== END 2024-06-24 18:19 | disposition left against medical advice (07) ==
LOC: ERS 11:18
DX: N40.0 Benign prostatic hyperplasia without lower urinary tract symptoms (principal); N13.9 Obstructive and reflux uropathy, unspecified; N39.0 Urinary tract infection, site not specified
CPT/HCPCS: 51701; 74177; 80053; 81001; 83605; 84484; 85025; 93005; 96372; 96374; 96375; 99284; J0696; J3010; Q9967; 36415

== ENCOUNTER 2024-08-20 20:12 | Emergency (ER) | payer MEDICARE ==
[2024-08-20] MEDS ORDERED: Morphine 2 MG/ML VIAL ONE (20:50)
[2024-08-20 22:09] LABS: Bilirubin Negative (Negative); Blood, Urine Trace (Negative); CAUTI Indications for Culture Acute Hematuria; Clarity Turbid (Clear); Glucose, Urine (Dipstick) Normal (Negative); Ketone, Urine Negative (Negative); Leukocyte 500 Leu/uL (Negative); Nitrite Negative (Negative); Protein, Urine (Dipstick) 20 mg/dL (Neg-Trace); RBC/HPF 0-3 HPF (0-3); Specific Gravity, Urine 1.009 (1.002-1.036); Squamous Epithelial None Seen HPF (0-3); Urobilinogen Normal mg/dL (Less than 2); WBC/HPF Greater than 50 HPF (0-3)
[2024-08-20 22:11] LABS: Bacteria/HPF Rare-Few HPF (None Seen)
[2024-08-20 22:13] LABS: Urine Culture Reflex Yes Yes
== END 2024-08-20 22:47 | disposition home or self-care (01) ==
LOC: ERS 20:12
DX: T83.091A Other mechanical complication of indwelling urethral catheter, initial encounter (principal); N39.0 Urinary tract infection, site not specified
CPT/HCPCS: 51702; 81001; 87077; 87086; 87186; 96374; 99284; J2272